=== PATIENT | female | born 1960 | race Caucasian/White ===

== ENCOUNTER 2021-10-04 10:11 | Outpatient (REF) | payer MEDICARE, SELFPAY ==
[2021-10-04 11:02] LABS: MANUAL DIFF FLAG NO
[2021-10-04 11:05] LABS: Basophils Percent Auto 0.4 % (0-2); Eosinophils Absolute Auto 0.3 X10*3/uL (0.0-0.4); Eosinophils Percent Auto 6.3 % (0-4); Hematocrit 39.8 % (37.0-47.0); Imm Gran Abs Auto 0.01 X10*3/uL (0.00-0.03); Imm Gran Pct Auto 0.2 % (0.0-0.4); Lymphocytes Absolute Auto 1.9 X10*3/uL (1.2-4.9); Lymphocytes Percent Auto 40.2 % (20-40); Mean Corpuscular HGB Conc 32.7 g/dl (31.0-35.0); Mean Corpuscular Hemoglobin 28.3 pg (27.0-33.0); Mean Corpuscular Volume 86.7 fL (80.0-98.0); Mean Platelet Volume 11.5 fL (9.4-12.3); Monocytes Absolute Auto 0.4 X10*3/uL (0.1-1.2); Monocytes Percent Auto 8.8 % (2-11); Neutrophils Absolute Auto 2.1 x10*3/uL (2.0-8.3); Neutrophils Percent Auto 44.1 % (45-73); Platelet Count 246 X10*3/uL (160-400); Red Blood Count 4.59 X10*6/uL (4.20-5.50); White Blood Count 4.8 X10*3/uL (4.8-10.8)
[2021-10-04 11:41] LABS: Erythrocyte Sedimentation Rate 17 MM/HR (0-20)
[2021-10-04 11:49] LABS: C Reactive Protein 0.46 mg/dL (< or = 0.50); Estimated Glomerular Filt Rate > 60
== END 2021-10-04 10:12 | disposition home or self-care (01) ==
LOC: HO.10HDL 10:11
PROVIDERS: Visit Provider Internal Medicine Rheumatology
DX: M05.9 Rheumatoid arthritis with rheumatoid factor, unspecified (principal); H60.90 Unspecified otitis externa, unspecified ear; Z79.899 Other long term (current) drug therapy
CPT/HCPCS: 36415; 82565; 85025; 85652; 86140; 99212

== ENCOUNTER → 2022-04-12 10:36 | Outpatient (BNVA) | payer MEDICARE, SELFPAY | PROVIDERS: PCP Internal Medicine; Visit Provider Internal Medicine Rheumatology | DX: M05.9 Rheumatoid arthritis with rheumatoid factor, unspecified (principal); M67.431 Ganglion, right wrist; Z79.899 Other long term (current) drug therapy | CPT/HCPCS: 99212 ==

== ENCOUNTER 2022-04-12 11:45 | Outpatient (REF) | payer MEDICARE, SELFPAY ==
[2022-04-12 14:22] LABS: Basophils Percent Auto 0.3 % (0-2); Eosinophils Absolute Auto 0.5 X10*3/uL (0.0-0.4); Eosinophils Percent Auto 8.1 % (0-4); Hematocrit 40.8 % (37.0-47.0); Hemoglobin 13.1 g/dl (12.0-16.0); Imm Gran Abs Auto 0.01 X10*3/uL (0.00-0.03); Imm Gran Pct Auto 0.2 % (0.0-0.4); Lymphocytes Absolute Auto 2.1 X10*3/uL (1.2-4.9); Lymphocytes Percent Auto 35.7 % (20-40); MANUAL DIFF FLAG NO; Mean Corpuscular HGB Conc 32.1 g/dl (31.0-35.0); Mean Corpuscular Hemoglobin 27.8 pg (27.0-33.0); Mean Corpuscular Volume 86.6 fL (80.0-98.0); Mean Platelet Volume 12.1 fL (9.4-12.3); Monocytes Absolute Auto 0.5 X10*3/uL (0.1-1.2); Monocytes Percent Auto 9.3 % (2-11); Neutrophils Absolute Auto 2.7 x10*3/uL (2.0-8.3); Neutrophils Percent Auto 46.4 % (45-73); Platelet Count 218 X10*3/uL (160-400); Red Blood Count 4.71 X10*6/uL (4.20-5.50); Red Cell Distribution Width 12.6 % (11.0-16.0); White Blood Count 5.8 X10*3/uL (4.8-10.8)
[2022-04-12 14:55] LABS: Erythrocyte Sedimentation Rate 17 MM/HR (0-20)
[2022-04-12 15:30] LABS: C Reactive Protein 0.37 mg/dL (< or = 0.50)
== END 2022-04-12 11:46 | disposition home or self-care (01) ==
LOC: HO.10HDL 11:45
PROVIDERS: Visit Provider Internal Medicine Rheumatology
DX: M05.9 Rheumatoid arthritis with rheumatoid factor, unspecified (principal); M67.431 Ganglion, right wrist; Z79.899 Other long term (current) drug therapy
CPT/HCPCS: 36415; 85025; 85652; 86140

== ENCOUNTER 2022-11-07 12:49 | Outpatient (REF) | payer MEDICARE, SELFPAY ==
--- NOTE | ~2022-11-07 | XR_ITS ---
EXAMINATION: XR WRIST, RIGHT XR HAND, RIGHT CLINICAL INFORMATION: COMPARISON: None available. TECHNIQUE: PA, lateral, and oblique views of the right wrist and PA, lateral, and oblique views of the right hand FINDINGS: RIGHT WRIST: The bones and soft tissues are normal. No fracture. Alignment is anatomic. Joint spaces are maintained. No erosions or soft tissue calcifications. RIGHT HAND: The bones and soft tissues are normal. No fracture. Alignment is anatomic. Joint spaces are maintained. No erosions or soft tissue calcifications. XR/XR hand wrist RT IMPRESSION: Normal right hand and wrist.
== END 2022-11-07 12:50 | disposition home or self-care (01) ==
LOC: HO.XRAY 12:49
PROVIDERS: PCP Internal Medicine; Visit Provider Internal Medicine Rheumatology
DX: M25.531 Pain in right wrist (principal); M19.041 Primary osteoarthritis, right hand; M05.9 Rheumatoid arthritis with rheumatoid factor, unspecified; M19.042 Primary osteoarthritis, left hand; Z79.899 Other long term (current) drug therapy; M76.62 Achilles tendinitis, left leg
CPT/HCPCS: 73110; 73130; 99212

== ENCOUNTER 2022-11-07 12:49 | Outpatient (AMB) | payer MEDICARE, SELFPAY ==
[2022-11-07 12:54] VITALS: BP 120/68; PULSE 85; TEMP 35.9; O2SAT 96; BMI 38.3
--- NOTE | 2022-11-07 12:54 | A.OFFVIS_ITS ---
Intake Vital Signs 11/07/22 12:54 Height 5 ft 4 in Weight 222 lb 14.197 oz BMI 38.3 BP 120/68 Blood Pressure Location Rt brachial Position Sitting Pulse 85 Pulse Source Pulse Oximeter Temp 96.6 F L Temp Source Skin Pulse Oximetry (%) 96 Intake Visit Reasons: ra Intake Note: Pt seen today for RA follow up and test results. 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 She remains on Enbrel 50 mg once a week and meloxicam 15 mg daily. She complains of some right wrist pain, with slight swelling. This is more problematic she thinks on the ulnar aspect of the wrist. There is also been some recurrence of left Achilles pain. She had a cyst over the right wrist at her last visit earlier in the year but that subsided. 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 She also notes that she had surgery on this left Achilles a few years ago. It did fine after that but symptoms have returned she thinks in the last 6 months. There was no recent injury. She was also using some diclofenac gel but ran out of it. [facility] Social History Household Members Other:: lives alone Housing: Apartment Are you a primary career education teacher to a significant other at home: No Do you presently have visiting nurse or other home services: No 75 years or older and lives alone: No Alcohol intake: never Patient Tobacco Use Status: Never used Tobacco e-Cigarette/Vaping Use: Never Used service: No Current occupational status: disabled Review of Systems Const Details: Negative for appetite change, weight change, fever, chills, malaise and fatigue Eyes Details: Negative for vision change, dry eyes,headaches and dizziness ENT Details: Negative for hearing change, tinnitus, oral ulcer, nose bleeds and oral dryness. Card Details: Negative chest pain, edema and syncope Resp Details: Negative for SOB, cough and wheezing GI Details: Negative indigestion/heartburn, nausea, abdominal pain, bowel changes, diarrhea, constipation and bloody stool. Skin/Breast Details: Negative for itching, rash, hives, Raynaud's symptoms, sun sensitivity, and skin cancer Charles/Lymph Details: Negative for excessive bruising or bleeding. Physical Exam Vital Signs: Last Vital Signs Temp 96.6 F L 11/07/22 12:54 Pulse 85 11/07/22 12:54 BP 120/68 11/07/22 12:54 Pulse Ox 96 11/07/22 12:54 BMI result Body Mass Index 38.3 APPEARANCE: Patient in no acute distress EYES no redness, pupils equal and reactive to light, eyelids normal JOINT EXAM: Cervical Spine:.? Full range of motion without pain; no tenderness. Thoracic Spine:.? No scoliosis.? No tenderness on palpation. Lumbar Spine:.? Alignment normal.? Full range of motion without pain, no tenderness. Chest Wall:.? No tenderness, swelling, increased warmth or erythema. Hands: right:? There is mild bony enlargement at the 2nd through 5th DIP joints, the thumb IP and the 2nd 3rd PIP joints..? These are not tender.? No swelling or tenderness in the other joints.? Left: Nontender bony enlargement at the 2nd and 5th PIP joints.? Other joints do not have any swelling or tenderness.. Wrists:.? Right:? Mild pain with flexion extension at 75 degrees.? There is a slight dorsal in a bit more prominent tenderness over the right ulnar region. This is consistent with some ulnar tendinitis. No redness or warmth. Left:? There is 80 degrees of flexion and extension without pain.? No tenderness or swelling. Elbows:. Normal pain-free range of motion without tenderness, swelling, increased warmth or erythema. Shoulders:.?? Full range of motion without pain. No tenderness, weakness, swelling, increased warmth or erythema. Hips:.? Full range of motion without pain. Hip bursa:.? No tenderness. Knees:.?? Normal pain-free range of motion with? Mild patellofemoral crepitus but no effusion, tenderness, soft tissue swelling,, increased warmth or erythema .? ? Feet:.? Normal pain-free range of motion with? Slight 1st MTP bony enlargement without tenderness.? No soft tissue swelling, increased warmth or erythema. ? Ankles:.?? left:? Mild pain with extremes of normal range of motion. There is tenderness along the Achilles where she has old surgical scars that seem well healed. No significant swelling or redness.? Right:Normal pain-free range of motion without tenderness, swelling, increased warmth or erythema. Tender points:?? slight tenderness to digital palpation at the trapezius,lateral epicondyle, greater trochanter area bilaterally. Results Reviewed Results Reviewed: Laboratory Tests 04/12/22 04/12/22 10:35 Unknown ESR 17 C-Reactive Protein 0.37 Assessment & Plan Assessment & Plan (1) Long-term use of immunosuppressant medication: Code(s): Z79.899 - Other long term acute care registered nurse (current) drug therapy (2) Achilles tendinitis of left lower extremity: Code(s): M76.62 - Achilles tendinitis, left leg (3) Osteoarthritis of hands, bilateral: Code(s): M19.041 - Primary osteoarthritis, right hand; M19.042 - Primary osteoarthritis, left hand (4) Wrist pain, right: Code(s): M25.531 - Pain in right wrist (5) Seropositive rheumatoid arthritis: Comment: Given penicillin prophylaxis for acute rheumatic fever until age 12(in [place]) Onset RA 2001. RF positive; CCP > 250 On Enbrel since 2003 Code(s): M05.9 - Rheumatoid arthritis with rheumatoid factor, unspecified Plan Rheumatoid arthritis with some tenderness in the right wrist and left Achilles. Both of these look like tendon structures. The right wrist has some element of flexor carpi ulnaris tenosynovitis. The Achilles tendon is tender as well. We will get x-rays of that ankle and ask her to be re-evaluated at [facility] where she had her Achilles surgery done a few years ago. I offered a corticosteroid injection for the right wrist but she was not interested for now. We will get an x-ray of the wrist. She will continue with current medications and I added back her diclofenac gel to use topically particularly for these areas of tendinitis. Follow-up in 4 months. Orders: Orders XR hand wrist RT Today M25.531 - Pain in right wrist Referrals Orthopedics Referral M76.62 - Achilles tendinitis, left leg Medications: New diclofenac sodium 1% to affected areas 1 - 2 grams topical QID 100 grams 3RF M76.62 - Achilles tendinitis, left leg Refilled etanercept (Enbrel SureClick) 50 mg subcut QWEEK 4 mL 6RF M05.9 - Rheumatoid arthritis with rheumatoid factor, unspecified Coding Level of Care Code Est Pt Level 3 (45928) Diagnoses Long-term use of immunosuppressant medication Z79.899 Achilles tendinitis of left lower extremity M76.62 Osteoarthritis of hands, bilateral M19.041; M19.042 Wrist pain, right M25.531 Seropositive rheumatoid arthritis M05.9
== END 2022-11-07 13:33 | disposition home or self-care (01) ==
PROVIDERS: PCP Internal Medicine; Visit Provider Internal Medicine Rheumatology
DX: M05.79 Rheumatoid arthritis with rheumatoid factor of multiple sites without organ or systems involvement (principal); Z79.899 Other long term (current) drug therapy; M76.62 Achilles tendinitis, left leg; M19.041 Primary osteoarthritis, right hand; M19.042 Primary osteoarthritis, left hand; M25.531 Pain in right wrist
CPT/HCPCS: 99213

== ENCOUNTER 2023-02-20 13:26 | Outpatient (AMB) | payer MEDICARE, SELFPAY ==
--- NOTE | 2023-02-20 13:34 | A.OFFVIS_ITS ---
Intake Vital Signs 02/20/23 13:35 Height 5 ft 4 in Weight 223 lb 15.834 oz BMI 38.4 BP 118/80 Blood Pressure Location Rt brachial Position Sitting Pulse 90 Pulse Source Pulse Oximeter Temp 97 F Temp Source Skin Pulse Oximetry (%) 95 Oxygen Delivery Method Room Air Intake Visit Reasons: ra Intake Note: Patient presents today to follow up on RA. Reports seen [facility] but does not wish to reschedule missed follow up appt. Does not want to do PT as they suggested. c/o left knee pain since Thanksgiving. 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 Accompanied by: Self / Same As Patient Allergies lisinopril Allergy (Unknown, Verified 02/20/23 13:37) cough morphine Allergy (Unknown, Verified 02/20/23 13:37) palpitations Medication List - Last Reconciled 02/20/23 by Carlos Chew MD cholecalciferol (vitamin D3) 25 mcg PO DAILY cyanocobalamin (vitamin B-12) 1,000 mcg PO DAILY cyclosporine 0.05% (Restasis MultiDose) drps ophthalmic (eye) diclofenac sodium 1% 1 - 2 grams topical QID duloxetine 60 mg PO DAILY etanercept (Enbrel SureClick) 50 mg subcut QWEEK lorazepam 0.5 mg PO DAILY PRN losartan 12.5 mg PO DAILY meloxicam 15 mg PO DAILY PRN metformin 500 mg PO QAM mirabegron ER (Myrbetriq) 25 mg PO DAILY jvrvchsq-toruce-XK-thonzonium 3.3-3-10-0.5 mg/mL (Cortisporin-TC) 4 drps otic (ear) left TID oxybutynin chloride ER 15 mg PO DAILY zolpidem 5 mg PO BEDTIME HPI HPI Comments History of Present Illness Details The patient returns today for evaluation of her rheumatoid arthritis. She remains on meloxicam 15 mg once daily and Enbrel 50 mg once a week. At her last visit she was having some Achilles tendinitis. She did go to Orthopedics and they recommended some exercises which she has been doing. She also has been putting on some to diclofenac gel on the area. These measures seem to have helped her. However she is getting rare episode of pain in the right lateral wrist. She has had more significant pains in the left knee for about 2 weeks now. There was no injury involved. She relates that it is over the anterior and medial aspect of the knee. She thinks there is occasional swelling. In the past she had arthroscopy on her knee but she does not really know which one. Radiographs and MRI from [place] showed the right knee had some degenerative changes on the MRI but not much seen on previous knee films. I do not find any x-rays of the left knee. [facility] Social History Household Members Other:: lives alone Housing: Apartment Are you a primary child daycare worker to a significant other at home: No Do you presently have visiting nurse or other home services: No 75 years or older and lives alone: No Alcohol intake: never Patient Tobacco Use Status: Never used Tobacco e-Cigarette/Vaping Use: Never Used service: No Current occupational status: disabled Review of Systems Const Details: Negative for appetite change, weight change, fever, chills, malaise and fatigue Eyes Details: Negative for vision change, dry eyes,headaches and dizziness ENT Details: Negative for hearing change, tinnitus, oral ulcer, nose bleeds and oral dryness. Card Details: Negative chest pain, edema and syncope Resp Details: Negative for SOB, cough and wheezing GI Details: Negative indigestion/heartburn, nausea, abdominal pain, bowel changes, diarrhea, constipation and bloody stool. Skin/Breast Details: Negative for itching, rash, hives, Raynaud's symptoms, sun sensitivity, and skin cancer Endo Details: Negative for polyuria and polydypsia Charles/Lymph Details: Negative for excessive bruising or bleeding. Physical Exam Vital Signs: Last Vital Signs Temp 97 F 02/20/23 13:35 Pulse 90 02/20/23 13:35 BP 118/80 02/20/23 13:35 Pulse Ox 95 02/20/23 13:35 Oxygen Delivery Method Room Air 02/20/23 13:35 BMI result Body Mass Index 38.4 APPEARANCE: Patient in no acute distress EYES no redness, pupils equal and reactive to light, eyelids normal EXTREMITIES: No edema, no calf tenderness, normal peripheral pulses. SKIN: No inflammatory or neoplastic lesions. Normal color and turgor JOINT EXAM: Cervical Spine:.? Full range of motion without pain; no tenderness. Thoracic Spine:.? No scoliosis.? No tenderness on palpation. Lumbar Spine:.? Alignment normal.? Full range of motion without pain, no tenderness. Chest Wall:.? No tenderness, swelling, increased warmth or erythema. Hands: right:? There is mild bony enlargement at the 2nd through 5th DIP joints, the thumb IP and the 2nd 3rd PIP joints.? These are not tender.? No swelling or tenderness in the other joints.? Left: Nontender bony enlargement at the thumb IP, 2nd PIP, and 5th PIP joints.? There is slight nontender bony enlargement at the 2nd, 3rd and 5th D IP joints. All Wrists:.? Right:? Slight discomfort with flexion or extension at 75 degrees.? There is a slight dorsal in a bit more prominent tenderness over the right ulnar region. This is consistent with some ulnar tendinitis. No redness or warmth. Left:? There is 80 degrees of flexion and extension without pain.? No tenderness or swelling. Elbows:. Normal pain-free range of motion without tenderness, swelling, increased warmth or erythema. Shoulders:.?? Full range of motion without pain. No tenderness, weakness, swelling, increased warmth or erythema. Hips:.? Full range of motion without pain. Hip bursa:.? No tenderness. Knees:.? Right:? Normal pain-free range of motion with? Mild patellofemoral crepitus but no effusion, tissue swelling,, increased warmth or erythema.? There is some slight medial compartment tenderness. Left: Mild pain at the extremes of normal flexion or extension. Most of the pain is felt in the anterior medial aspect of the knee. There is [id number] medial compartment tenderness without redness or effusion. There is slight tenderness in the popliteal region without swelling. ? Feet:.? Normal pain-free range of motion with? Slight 1st MTP bony enlargement without tenderness.? No soft tissue swelling, increased warmth or erythema. ? Ankles:.?? left:? Normal pain-free range of motion. There is no tenderness at the Achilles where she has old surgical scars that seem well healed. No significant swelling or redness.? Right:Normal pain-free range of motion without tenderness, swelling, increased warmth or erythema. Tender points:??slight tenderness to digital palpation at the trapezius,lateral epicondyle, greater trochanter area bilaterally. ?? Office Procedures Joint Injection/Drain Joint Injection/Drain Primary Site: left knee Injected: 40 mg of, Kenalog, with 1 mL of and 1% plain lidocaine Coding Details: With the patient's consent the left knee was prepped with ChloraPrep and alcohol. The skin was anesthetized with 2 cc of 1% lidocaine. The knee was then injected with 40 mg of triamcinolone and 1 cc of I % lidocaine. The patient tolerated the procedure with no immediate adverse effects. 74114 - Large joint Procedure code (CPT) selection complete Results Reviewed Results Reviewed: Laboratory Tests 10/04/21 04/12/22 04/12/22 10:15 10:35 11:46 WBC 5.8 Hgb 13.1 ESR Creatinine 0.82 C-Reactive Protein 0.37 04/12/22 Unknown WBC Hgb ESR 17 Creatinine C-Reactive Protein Assessment & Plan Assessment & Plan (1) Osteoarthritis of hands, bilateral: Code(s): M19.041 - Primary osteoarthritis, right hand; M19.042 - Primary osteoarthritis, left hand (2) Long-term use of immunosuppressant medication: Code(s): Z79.899 - Other remote computer terminal operator (current) drug therapy (3) Seropositive rheumatoid arthritis: Comment: Given penicillin prophylaxis for acute rheumatic fever until age 12(in [place]) Onset RA 2001. RF positive; CCP > 250 On Enbrel since 2003 Code(s): M05.9 - Rheumatoid arthritis with rheumatoid factor, unspecified Plan She is having some left knee pain and tenderness but it does not look swollen. She has some changes in the hands consistent with some underlying osteoarthritis but that is not really symptomatic currently. The knee pain could be some very low-grade RA but it is more likely some degenerative process due to osteoarthritis. I think the RA otherwise is well controlled. She is already taking full doses of the meloxicam. She wants to try a corticosteroid injection for the knee pain. She has had such injections without problems before in the shoulders. We reviewed potential side effects. With the patient's consent the left knee was prepped with ChloraPrep and alcohol. The skin was anesthetized with 2 cc of 1% lidocaine. The knee was then injected with 40 mg of triamcinolone and 1 cc of I % lidocaine. The patient tolerated the procedure with no immediate adverse effects. An x-ray of the knee is ordered. She should do this next week and LEs the knee is perfectly fine. We would also recheck inflammatory markers CBC and creatinine given her regular use of meloxicam. She will stay with the Enbrel as she seems to be controlling most of her symptoms. A follow-up in 5 months to 6 months is recommended. Orders: Orders XR knee LT 3V Today M05.9 - Rheumatoid arthritis with rheumatoid factor, unspecified Erythrocyte Sedimentation Rate Today M05.9 - Rheumatoid arthritis with rheumatoid factor, unspecified Creatinine Today M05.9 - Rheumatoid arthritis with rheumatoid factor, unspecified, Z79.899 - Other remote computer terminal operator (current) drug therapy Complete Blood Count Auto Diff Today Z79.899 - Other remote computer terminal operator (current) drug therapy C Reactive Protein Today M05.9 - Rheumatoid arthritis with rheumatoid factor, unspecified Alanine Aminotransferase Today M05.9 - Rheumatoid arthritis with rheumatoid factor, unspecified, Z79.899 - Other remote computer terminal operator (current) drug therapy AMB Joint Injection/Aspiration Today M05.9 - Rheumatoid arthritis with rheumatoid factor, unspecified Coding Level of Care Code Est Pt Level 3 (38236) Diagnoses Osteoarthritis of hands, bilateral M19.041; M19.042 Long-term use of immunosuppressant medication Z79.899 Seropositive rheumatoid arthritis M05.9 CPT Codes Coding - 80425 Large joint: 58107 - Large joint ([id number])
[2023-02-20 13:35] VITALS: BP 118/80; PULSE 90; TEMP 36.1; O2SAT 95; BMI 38.4
== END 2023-02-20 14:44 | disposition home or self-care (01) ==
PROVIDERS: PCP Internal Medicine; Visit Provider Internal Medicine Rheumatology
DX: M05.79 Rheumatoid arthritis with rheumatoid factor of multiple sites without organ or systems involvement (principal); M19.041 Primary osteoarthritis, right hand; M19.042 Primary osteoarthritis, left hand; Z79.899 Other long term (current) drug therapy
CPT/HCPCS: 20610; 99213

== ENCOUNTER → 2023-02-20 13:26 | Outpatient (BNVA) | payer MEDICARE, SELFPAY | PROVIDERS: PCP Internal Medicine; Visit Provider Internal Medicine Rheumatology | DX: M19.041 Primary osteoarthritis, right hand (principal); M19.042 Primary osteoarthritis, left hand; M05.9 Rheumatoid arthritis with rheumatoid factor, unspecified; Z79.899 Other long term (current) drug therapy | CPT/HCPCS: 20610; 99212 ==

== ENCOUNTER 2023-08-22 13:33 | Outpatient (AMB) | payer MEDICARE, SELFPAY ==
--- NOTE | 2023-08-22 13:38 | MHC.OFFVIS ---
Vital Signs 08/22/23 13:39 Height 5 ft 4 in Weight 228 lb 6.382 oz BMI 39.2 BP 122/60 Blood Pressure Location Rt brachial Position Sitting Pulse 83 Pulse Source Pulse Oximeter Pulse Oximetry (%) 97 Oxygen Delivery Method Room Air Intake Visit Reasons: ra with dr rehman Visual Lead Required: No Accompanied by: Self / Same As Patient Allergies lisinopril Allergy (Unknown, Verified 08/22/23 13:46) cough morphine Allergy (Unknown, Verified 08/22/23 13:46) palpitations Medication List - Last Reconciled 08/22/23 by Gabriela Ribera MD cetirizine 10 mg PO DAILY cholecalciferol (vitamin D3) 25 mcg PO DAILY cyanocobalamin (vitamin B-12) 1,000 mcg PO DAILY cyclosporine 0.05% (Restasis MultiDose) drps ophthalmic (eye) diclofenac sodium 1% 1 - 2 grams topical QID duloxetine 20 mg PO BID etanercept (Enbrel SureClick) 50 mg subcut QWEEK lorazepam 0.5 mg PO DAILY PRN losartan 12.5 mg PO DAILY meloxicam 15 mg PO DAILY PRN metformin 500 mg PO QAM mirabegron ER (Myrbetriq) 25 mg PO DAILY wsbpytgj-hwnifd-UN-thonzonium 3.3-3-10-0.5 mg/mL (Cortisporin-TC) 4 drps otic (ear) left TID oxybutynin chloride ER 15 mg PO DAILY zolpidem 5 mg PO BEDTIME HPI Comments Details: This is a 63-year-old female with seropositive RA who presents for follow-up. On Enbrel regularly. She states that she feels about the same overall. She continues to have intermittent flare-ups. Sometimes Enbrel does not last her the whole week. Takes Tylenol Arthritis as needed for her flare-ups. She states that last 2 days she has felt pain in her right side of her neck below her jaw she feels she has a swollen lymph node. She has not had a fever. She has been feeling relatively well otherwise. No major complaints Most recent history by Dr. Chew 02/2023: The patient returns today for evaluation of her rheumatoid arthritis. She remains on meloxicam 15 mg once daily and Enbrel 50 mg once a week. At her last visit she was having some Achilles tendinitis. She did go to Orthopedics and they recommended some exercises which she has been doing. She also has been putting on some to diclofenac gel on the area. These measures seem to have helped her. However she is getting rare episode of pain in the right lateral wrist. She has had more significant pains in the left knee for about 2 weeks now. There was no injury involved. She relates that it is over the anterior and medial aspect of the knee. She thinks there is occasional swelling. In the past she had arthroscopy on her knee but she does not really know which one. Radiographs and MRI from [place] showed the right knee had some degenerative changes on the MRI but not much seen on previous knee films. I do not find any x-rays of the left knee. [facility] Social History Household Members Other:: lives alone Housing: Apartment Are you a primary health care specialist to a significant other at home: No Do you presently have visiting nurse or other home services: No 75 years or older and lives alone: No Alcohol intake: never Patient Tobacco Use Status: Never used Tobacco e-Cigarette/Vaping Use: Never Used service: No Current occupational status: disabled Review of Systems ENT Details: Painful lymph node Musc Reports back pain, Reports arthralgias and Reports stiffness Physical Exam Vital Signs: Last Vital Signs Pulse 83 08/22/23 13:39 BP 122/60 08/22/23 13:39 Pulse Ox 97 08/22/23 13:39 Oxygen Delivery Method Room Air 08/22/23 13:39 BMI result Body Mass Index 39.2 Const General: cooperative, healthy appearing and comfortable Nutritional Appearance: obese morbidly obese Orientation/consciousness: patient oriented x3 Limitations: no limitations HEENT Head: Yes normocephalic and Yes atraumatic Mouth: moist mucous membranes Resp Effort & Inspection: normal respiratory effort and able to speak in complete sentences Auscultation: clear to auscultation bilaterally Cardio Rate: regular rate Rhythm: regular rhythm Neuro General: patient oriented x3 Extrem Other: Right wrist tenderness on the ulnar aspect Right 3rd and 4th PIP tenderness without swelling Osteoarthritic changes of both hands with prominent Heberden's nodes Assessment & Plan Assessment & Plan (1) Seropositive rheumatoid arthritis: Comment: Given penicillin prophylaxis for acute rheumatic fever until age 12(in [place]) Onset RA 2001. ++RF+++CCP On Enbrel since 2003 Code(s): M05.9 - Rheumatoid arthritis with rheumatoid factor, unspecified Category: Medical Plan: This is a 63-year-old female with seropositive RA who presents as a new patient for me. She used to follow-up with Dr. Chew. Patient is doing quite well on Enbrel weekly. Continue Enbrel 50 mg subcutaneously weekly. Patient takes Tylenol Arthritis as needed. Labs before next visit in 6 months (2) Long-term use of immunosuppressant medication: Code(s): Z79.899 - Other bacteriologist food (current) drug therapy Category: Medical Plan: Patient has been on Enbrel regularly for approximately 20 years without any major side effects. Patient to hold Enbrel for any serious infection, fever above 102. Infection that requires hospital admission Plan I spent 30 minutes reviewing patient's chart, evaluating patient, ordering diagnostic workup, counseling patient and documenting in the chart Orders: Orders Comprehensive Met. Panel 6 Months M05.9 - Rheumatoid arthritis with rheumatoid factor, unspecified C Reactive Protein 6 Months M05.9 - Rheumatoid arthritis with rheumatoid factor, unspecified Erythrocyte Sedimentation Rate 6 Months M05.9 - Rheumatoid arthritis with rheumatoid factor, unspecified T Spot TB 6 Months Z11.7 - Encounter for testing for latent tuberculosis infection Complete Blood Count Auto Diff 6 Months M05.9 - Rheumatoid arthritis with rheumatoid factor, unspecified Hepatitis A,B,C Profile 6 Months Z11.59 - Encounter for screening for other viral diseases Medications: Changed From etanercept (Enbrel SureClick) 50 mg subcut QWEEK 4 mL 6RF M05.9 - Rheumatoid arthritis with rheumatoid factor, unspecified To Enbrel SureClick (etanercept) 50 mg subcut QWEEK 4 mL 5RF NS M05.9 - Rheumatoid arthritis with rheumatoid factor, unspecified Coding Level of Care Code Est Pt Level 4 (67092) Diagnoses Seropositive rheumatoid arthritis M05.9 Long-term use of immunosuppressant medication Z79.899
[2023-08-22 13:39] VITALS: BP 122/60; PULSE 83; O2SAT 97; BMI 39.2
== END 2023-08-22 14:08 | disposition home or self-care (01) ==
PROVIDERS: PCP Internal Medicine; Visit Provider Student in an Organized Health Care Education/Training Program
DX: M05.79 Rheumatoid arthritis with rheumatoid factor of multiple sites without organ or systems involvement (principal); Z79.899 Other long term (current) drug therapy
CPT/HCPCS: 99214

== ENCOUNTER → 2023-08-22 13:33 | Outpatient (BNVA) | payer MEDICARE, SELFPAY | PROVIDERS: PCP Internal Medicine; Visit Provider Student in an Organized Health Care Education/Training Program | DX: M05.9 Rheumatoid arthritis with rheumatoid factor, unspecified (principal); Z79.620 Long term (current) use of immunosuppressive biologic | CPT/HCPCS: 99212 ==

== ENCOUNTER 2024-01-03 08:23 | Outpatient (AMB) | payer MEDICARE, SELFPAY ==
--- NOTE | 2024-01-03 08:37 | A.OFFVIS_ITS ---
Vital Signs 01/03/24 08:39 Height 5 ft 4 in Weight 230 lb 2.601 oz BMI 39.5 BP 120/60 Blood Pressure Location Rt brachial Position Sitting Pulse 76 Pulse Source Pulse Oximeter Pulse Oximetry (%) 97 Oxygen Delivery Method Room Air Intake Visit Reasons: RA Intake Note: Patient presents for RA. Allergies lisinopril Allergy (Unknown, Verified 01/03/24 08:39) cough morphine Allergy (Unknown, Verified 01/03/24 08:39) palpitations Medication List - Last Reconciled 01/03/24 by Gabriela Ribera MD cetirizine 10 mg PO DAILY cholecalciferol (vitamin D3) 25 mcg PO DAILY cyanocobalamin (vitamin B-12) 1,000 mcg PO DAILY cyclosporine 0.05% (Restasis MultiDose) drps ophthalmic (eye) diclofenac sodium 1% 1 - 2 grams topical QID duloxetine 20 mg PO BID Enbrel SureClick (etanercept) 50 mg subcut QWEEK NS lorazepam 0.5 mg PO DAILY PRN losartan 12.5 mg PO DAILY meloxicam 15 mg PO DAILY PRN metformin 500 mg PO QAM mirabegron ER (Myrbetriq) 25 mg PO DAILY dgwglzmw-tauhin-EE-thonzonium 3.3-3-10-0.5 mg/mL (Cortisporin-TC) 4 drps otic (ear) left TID oxybutynin chloride ER 15 mg PO DAILY prednisone Take 4 tabs daily for 1 week then 3 tabs daily for 1 week then 2 tabs daily for 1 week then 1 tab daily for 1 week then stop zolpidem 5 mg PO BEDTIME HPI Comments Details: This is a 63-year-old female with seropositive RA who presents for an urgent visit. About a month ago she had COVID infection, she had no fever but she had chills. Since then she has been having diffuse body aches as well as joint pain. Especially both her wrists, the left wrist is worse, left shoulder pain. She has been taking Tylenol without much relief. She continues to do the Enbrel injection regularly Most recent history by Dr. Chew 02/2023: The patient returns today for evaluation of her rheumatoid arthritis. She remains on meloxicam 15 mg once daily and Enbrel 50 mg once a week. At her last visit she was having some Achilles tendinitis. She did go to Orthopedics and they recommended some exercises which she has been doing. She also has been putting on some to diclofenac gel on the area. These measures seem to have helped her. However she is getting rare episode of pain in the right lateral wrist. She has had more significant pains in the left knee for about 2 weeks now. There was no injury involved. She relates that it is over the anterior and medial aspect of the knee. She thinks there is occasional swelling. In the past she had arthroscopy on her knee but she does not really know which one. Radiographs and MRI from [place] showed the right knee had some degenerative changes on the MRI but not much seen on previous knee films. I do not find any x-rays of the left knee. [facility] Social History Household Members Other:: lives alone Housing: Apartment Are you a primary career development engineer to a significant other at home: No Do you presently have visiting nurse or other home services: No Alcohol intake: never Patient Tobacco Use Status: Never used Tobacco e-Cigarette/Vaping Use: Never Used service: No Current occupational status: disabled Review of Systems [employer] Reports arthralgias and Reports stiffness Physical Exam Vital Signs: Last Vital Signs Pulse 76 01/03/24 08:39 BP 120/60 01/03/24 08:39 Pulse Ox 97 01/03/24 08:39 Oxygen Delivery Method Room Air 01/03/24 08:39 BMI result Body Mass Index 39.5 Const General: cooperative, healthy appearing and comfortable Nutritional Appearance: obese morbidly obese Orientation/consciousness: patient oriented x3 Limitations: no limitations HEENT Head: Yes normocephalic and Yes atraumatic Mouth: moist mucous membranes Resp Effort & Inspection: normal respiratory effort and able to speak in complete sentences Auscultation: clear to auscultation bilaterally Cardio Rate: regular rate Rhythm: regular rhythm Neuro General: patient oriented x3 Extrem Other: Bilateral wrist tenderness, slight puffiness and pain with any range of motion Significantly limited left shoulder abduction Left knee pain with flexion-extension Osteoarthritic changes of both hands with prominent Heberden's nodes Assessment & Plan Assessment & Plan (1) Seropositive rheumatoid arthritis: Comment: Given penicillin prophylaxis for acute rheumatic fever until age 12(in [place]) Onset RA 2001. ++RF+++CCP On Enbrel since 2003 Code(s): M05.9 - Rheumatoid arthritis with rheumatoid factor, unspecified Category: Medical Plan: This is a 63-year-old female with seropositive RA who presents for an urgent visit. Patient is having an RA flare likely triggered by COVID infection. Start prednisone taper for relief Check labs today Follow-up in 3 months. If patient continues to have active synovitis then she may have developed secondary nonresponse to Enbrel and we may have to change it Continue Enbrel 50 mg subcutaneously weekly. Labs before next visit in 3 months (2) Long-term use of immunosuppressant medication: Code(s): Z79.899 - Other termite technician (current) drug therapy Category: Medical Plan: Patient has been on Enbrel regularly for approximately 20 years without any major side effects. Patient to hold Enbrel for any serious infection, fever above 102. Infection that requires hospital admission Plan I spent 30 minutes reviewing patient's chart, evaluating patient, ordering diagnostic workup, counseling patient and documenting in the chart Orders: Orders Complete Blood Count Auto Diff 3 Months M05.9 - Rheumatoid arthritis with rheumatoid factor, unspecified Comprehensive Met. Panel 3 Months M05.9 - Rheumatoid arthritis with rheumatoid factor, unspecified C Reactive Protein 3 Months M05.9 - Rheumatoid arthritis with rheumatoid factor, unspecified Erythrocyte Sedimentation Rate 3 Months M05.9 - Rheumatoid arthritis with rheumatoid factor, unspecified Medications: New prednisone Take 4 tabs daily for 1 week then 3 tabs daily for 1 week then 2 tabs daily for 1 week then 1 tab daily for 1 week then stop 70 tabs 0RF Coding Level of Care Code Est Pt Level 4 (10587) Complex EM visit Add On G2211 Diagnoses Seropositive rheumatoid arthritis M05.9 Long-term use of immunosuppressant medication Z79.899
[2024-01-03 08:39] VITALS: BP 120/60; PULSE 76; O2SAT 97; BMI 39.5
== END 2024-01-03 09:31 | disposition home or self-care (01) ==
PROVIDERS: PCP Internal Medicine; Visit Provider Student in an Organized Health Care Education/Training Program
DX: M05.79 Rheumatoid arthritis with rheumatoid factor of multiple sites without organ or systems involvement (principal); Z79.899 Other long term (current) drug therapy
CPT/HCPCS: 99214; G2211

== ENCOUNTER → 2024-01-03 08:23 | Outpatient (BNVA) | payer MEDICARE, SELFPAY | PROVIDERS: PCP Internal Medicine; Visit Provider Student in an Organized Health Care Education/Training Program | DX: M05.9 Rheumatoid arthritis with rheumatoid factor, unspecified (principal); Z79.899 Other long term (current) drug therapy | CPT/HCPCS: 99212 ==

== ENCOUNTER 2024-01-03 09:36 | Outpatient (REF) | payer MEDICARE, SELFPAY ==
[2024-01-03 10:42] LABS: MANUAL DIFF FLAG NO
[2024-01-03 10:45] LABS: Basophils Percent Auto 0.2 % (0-2); Eosinophils Absolute Auto 0.5 X10*3/uL (0.0-0.4); Eosinophils Percent Auto 11.1 % (0-4); Hematocrit 40.9 % (37.0-47.0); Hemoglobin 13.6 g/dl (12.0-16.0); Imm Gran Abs Auto 0.01 X10*3/uL (0.00-0.03); Imm Gran Pct Auto 0.2 % (0.0-0.4); Lymphocytes Absolute Auto 1.8 X10*3/uL (1.2-4.9); Lymphocytes Percent Auto 41.5 % (20-40); Mean Corpuscular HGB Conc 33.3 g/dl (31.0-35.0); Mean Corpuscular Hemoglobin 28.1 pg (27.0-33.0); Mean Corpuscular Volume 84.5 fL (80.0-98.0); Mean Platelet Volume 11.2 fL (9.4-12.3); Monocytes Absolute Auto 0.3 X10*3/uL (0.1-1.2); Monocytes Percent Auto 5.9 % (2-11); Neutrophils Absolute Auto 1.7 x10*3/uL (2.0-8.3); Neutrophils Percent Auto 41.1 % (45-73); Platelet Count 211 X10*3/uL (160-400); Red Blood Count 4.84 X10*6/uL (4.20-5.50); White Blood Count 4.2 X10*3/uL (4.8-10.8)
[2024-01-03 11:08] LABS: Alanine Aminotransferase 28 U/L (0-31); Albumin Level 3.6 g/dL (3.5-5.0); Alkaline Phosphatase 82 U/L (39-117); Anion Gap 10 (12-20); Aspartate Amino Transferase 24 U/L (5-31); Bilirubin Total 0.4 mg/dL (0.0-1.0); Blood Urea Nitrogen 16 mg/dL (9-16); C Reactive Protein 0.57 mg/dL (< or = 0.50); Calcium 9.3 mg/dL (8.4-10.2); Carbon Dioxide 29 mmol/L (22-29); Chloride 107 mmol/L (96-108); Estimated Glomerular Filt Rate > 60; Glucose Random 117 mg/dL (60-115); Potassium 3.9 mmol/L (3.3-5.1); Sodium 142 mmol/L (135-145); Total Protein 7.1 g/dL (6.5-8.0)
[2024-01-03 11:23] LABS: Erythrocyte Sedimentation Rate 17 MM/HR (0-20)
[2024-01-03 11:29] LABS: HBS Num1 8.06 mIU/mL (0-7.99); HBc Num1 0.13 S/CO (0.00-0.79); HBsAGNum1 0.37 S/CO (0.00-0.99); Hepatitis A Antibody IgM 0.39 Index (0-0.79); Hepatitis B Core Antibody Nonreactive (Nonreactive); Hepatitis B Surface Antigen Negative (Negative); ~HepC Num1 0.14 S/CO (0.00-0.79); ~Hepatitis A Antibody IgM Nonreactive (Nonreactive); ~Hepatitis C Antibody Nonreactive (Nonreactive)
[2024-01-04 08:57] LABS: HBS Num2 7.58 mIU/mL (0-7.99); HBS Num3 7.34 mIU/mL (0-7.99); ~Hepatitis B Surface Antibody NONREACTIVE (Nonreactive)
[2024-01-06 15:12] LABS: TS Negative Control Passed; TS Panel A 1; TS Panel B 0; TS Positive Control Passed; TSpotTB Negative (Negative)
== END 2024-01-03 09:37 | disposition home or self-care (01) ==
LOC: HO.10HDL 09:36
PROVIDERS: Visit Provider Student in an Organized Health Care Education/Training Program
DX: M05.9 Rheumatoid arthritis with rheumatoid factor, unspecified (principal); Z11.7 Encounter for testing for latent tuberculosis infection; Z11.59 Encounter for screening for other viral diseases
CPT/HCPCS: 36415; 80053; 85025; 85652; 86140; 86481; 86704; 86706; 86709; 86803; 87340

== ENCOUNTER 2024-03-04 11:25 | Outpatient (AMB) | payer MEDICARE, SELFPAY ==
--- NOTE | 2024-03-04 11:31 | A.OFFVIS_ITS ---
Vital Signs 03/04/24 11:36 Height 5 ft 4 in Weight 236 lb 12.423 oz BMI 40.6 BP 122/70 Blood Pressure Location Rt brachial Position Sitting Pulse 74 Pulse Source Pulse Oximeter Pulse Oximetry (%) 98 Oxygen Delivery Method Room Air Intake Visit Reasons: RA Intake Note: Patient presents for RA. Allergies lisinopril Allergy (Unknown, Verified 03/04/24 11:35) cough morphine Allergy (Unknown, Verified 03/04/24 11:35) palpitations Medication List - Last Reconciled 03/04/24 by Gabriela Ribera MD amoxicillin 2,000 mg (4 x 500 mg) PO ONCE cetirizine 10 mg PO DAILY cholecalciferol (vitamin D3) 25 mcg PO DAILY cyanocobalamin (vitamin B-12) 1,000 mcg PO DAILY cyclosporine 0.05% (Restasis MultiDose) drps ophthalmic (eye) diclofenac sodium 1% 1 - 2 grams topical QID duloxetine 20 mg PO BID Enbrel SureClick (etanercept) 50 mg subcut QWEEK NS ibuprofen 600 mg PO TID lorazepam 0.5 mg PO DAILY PRN losartan 12.5 mg PO DAILY meloxicam 15 mg PO DAILY PRN metformin 500 mg PO QAM mirabegron ER (Myrbetriq) 25 mg PO DAILY jsgkbpkn-zhtxkf-RD-thonzonium 3.3-3-10-0.5 mg/mL (Cortisporin-TC) 4 drps otic (ear) left TID oxybutynin chloride ER 15 mg PO DAILY prednisone Take 4 tabs daily for 1 week then 3 tabs daily for 1 week then 2 tabs daily for 1 week then 1 tab daily for 1 week then stop zolpidem 5 mg PO BEDTIME HPI Comments Details: This is a 63-year-old female with seropositive RA who presents for follow-up. She remains on Enbrel 50 mg weekly. After last visit, she took the prednisone taper with relief, a few days later she started having flare-ups affecting different joints including her wrists, hands and knees. She went to [place]. She had an x-ray and started on ibuprofen 600 mg. She took it regularly for some time then has been taking it as needed. States that she has not been doing well. Enbrel does not last as long as it used to, currently it lasts 3-4 days. She has pain, swelling and stiffness of her hands, wrists, knees. Most recent history by Dr. Chew 02/2023: The patient returns today for evaluation of her rheumatoid arthritis. She remains on meloxicam 15 mg once daily and Enbrel 50 mg once a week. At her last visit she was having some Achi lles tendinitis. She did go to Orthopedics and they recommended some exercises which she has been doing. She also has been putting on some to diclofenac gel on the area. These measures seem to have helped her. However she is getting rare episode of pain in the right lateral wrist. She has had more significant pains in the left knee for about 2 weeks now. There was no injury involved. She relates that it is over the anterior and medial aspect of the knee. She thinks there is occasional swelling. In the past she had arthroscopy on her knee but she does not really know which one. Radiographs and MRI from [place] showed the right knee had some degenerative changes on the MRI but not much seen on previous knee films. I do not find any x-rays of the left knee. [facility] Social History Household Members Other:: lives alone Housing: Apartment Are you a primary healthcare corporate account director to a significant other at home: No Do you presently have visiting nurse or other home services: No 75 years or older and lives alone: No Alcohol intake: never Patient Tobacco Use Status: Never used Tobacco e-Cigarette/Vaping Use: Never Used service: No Current occupational status: disabled Review of Systems [facility] Reports arthralgias and Reports stiffness Physical Exam Vital Signs: Last Vital Signs Pulse 74 03/04/24 11:36 BP 122/70 03/04/24 11:36 Pulse Ox 98 03/04/24 11:36 Oxygen Delivery Method Room Air 03/04/24 11:36 BMI result Body Mass Index 40.6 Const General: cooperative, healthy appearing and comfortable Nutritional Appearance: obese morbidly obese Orientation/consciousness: patient oriented x3 Limitations: no limitations HEENT Head: Yes normocephalic and Yes atraumatic Resp Effort & Inspection: normal respiratory effort and able to speak in complete sentences Cardio Rate: regular rate Rhythm: regular rhythm Neuro General: patient oriented x3 Extrem Other: Right wrist swelling, tenderness and pain with range of motion Right 2nd 3rd and 4th MCP tenderness without swelling Right 2nd through 5th PIP tenderness Left wrist without swelling or tenderness. But there is pain with full extension Osteoarthritic changes of both hands with prominent Heberden's nodes Assessment & Plan Assessment & Plan (1) Seropositive rheumatoid arthritis: Comment: Given penicillin prophylaxis for acute rheumatic fever until age 12(in [place]) Onset RA 2001. ++RF+++CCP On Enbrel since 2003 effective. Was on Humira for short period of time, was not effective Code(s): M05.9 - Rheumatoid arthritis with rheumatoid factor, unspecified Category: Medical Plan: This is a 63-year-old female with seropositive RA who presents for follow-up. She remains on Enbrel 50 mg weekly. Not doing well with recurrent flare-ups, on exam she has multiple swollen and tender joints. We will need to change DMARDs. At this time patient had secondary nonresponse to Enbrel and failed Humira in the past. Does risks and benefits of Actemra. Patient agreed to proceed. Will start prior authorization for Actemra Can use prednisone 5-10 mg once daily as needed for flare-ups Patient has dental cleaning today, per her dentist she needs to take 2000 mg of amoxicillin before the procedure, she was not able to connect with her PCP. I provided her with amoxicillin prescription Labs before next visit in 3 months (2) Long-term use of immunosuppressant medication: Code(s): Z79.899 - Other termite helper (current) drug therapy Category: Medical Plan: Side effects of Actemra were discussed with the patient in detail including increased risk of infection, Diverticulitis, reactivation of latent TB, possible increased risk of solid and skin tumors. Patient fully aware. Advised patient to seek medical care [facility] if patient has an infection and advised patient to stop the medication until the infection is resolved. Plan I spent 23 minutes reviewing patient's chart, evaluating patient, ordering diagnostic workup, counseling patient and documenting in the chart Orders: Orders Complete Blood Count Auto Diff 3 Months M05.9 - Rheumatoid arthritis with rheumatoid factor, unspecified Comprehensive Met. Panel 3 Months M05.9 - Rheumatoid arthritis with rheumatoid factor, unspecified C Reactive Protein 3 Months M05.9 - Rheumatoid arthritis with rheumatoid factor, unspecified Erythrocyte Sedimentation Rate 3 Months M05.9 - Rheumatoid arthritis with rheumatoid factor, unspecified Medications: New amoxicillin Prior to dental work 2,000 mg (4 x 500 mg) PO ONCE 4 caps 0RF Refilled prednisone Take 4 tabs daily for 1 week then 3 tabs daily for 1 week then 2 tabs daily for 1 week then 1 tab daily for 1 week then stop 70 tabs 0RF Coding Level of Care Code Est Pt Level 4 (67750) Diagnoses Seropositive rheumatoid arthritis M05.9 Long-term use of immunosuppressant medication Z79.899
[2024-03-04 11:36] VITALS: BP 122/70; PULSE 74; O2SAT 98; BMI 40.6
== END 2024-03-04 12:15 | disposition home or self-care (01) ==
PROVIDERS: PCP Internal Medicine; Visit Provider Student in an Organized Health Care Education/Training Program
DX: M05.79 Rheumatoid arthritis with rheumatoid factor of multiple sites without organ or systems involvement (principal); Z79.620 Long term (current) use of immunosuppressive biologic
CPT/HCPCS: 99214

== ENCOUNTER → 2024-03-04 11:25 | Outpatient (BNVA) | payer MEDICARE, SELFPAY | PROVIDERS: PCP Internal Medicine; Visit Provider Student in an Organized Health Care Education/Training Program | DX: M05.9 Rheumatoid arthritis with rheumatoid factor, unspecified (principal); Z79.899 Other long term (current) drug therapy | CPT/HCPCS: 99212 ==

== ENCOUNTER 2024-05-31 13:22 | Outpatient (REF) | payer OTHER, SELFPAY ==
[2024-05-31 13:35] LABS: MANUAL DIFF FLAG NO
[2024-05-31 14:26] LABS: Eosinophils Absolute Auto 0.7 X10*3/uL (0.0-0.4); Eosinophils Percent Auto 14.2 % (0-4); Hematocrit 39.1 % (37.0-47.0); Imm Gran Abs Auto 0.01 X10*3/uL (0.00-0.03); Imm Gran Pct Auto 0.2 % (0.0-0.4); Lymphocytes Percent Auto 40.3 % (20-40); Mean Corpuscular HGB Conc 33.2 g/dl (31.0-35.0); Mean Corpuscular Hemoglobin 27.8 pg (27.0-33.0); Mean Corpuscular Volume 83.7 fL (80.0-98.0); Mean Platelet Volume 11.4 fL (9.4-12.3); Monocytes Absolute Auto 0.3 X10*3/uL (0.1-1.2); Neutrophils Percent Auto 39.3 % (45-73); Platelet Count 222 X10*3/uL (160-400); Red Blood Count 4.67 X10*6/uL (4.20-5.50); Red Cell Distribution Width 12.8 % (11.0-16.0)
[2024-05-31 14:43] LABS: Alanine Aminotransferase 26 U/L (0-31); Albumin Level 3.4 g/dL (3.5-5.0); Alkaline Phosphatase 81 U/L (39-117); Anion Gap 8 (12-20); Aspartate Amino Transferase 22 U/L (5-31); Bilirubin Total 0.3 mg/dL (0.0-1.0); Blood Urea Nitrogen 21 mg/dL (9-16); C Reactive Protein 0.44 mg/dL (< or = 0.50); Calcium 8.6 mg/dL (8.4-10.2); Carbon Dioxide 28 mmol/L (22-29); Chloride 109 mmol/L (96-108); Estimated Glomerular Filt Rate > 60; Glucose Random 118 mg/dL (60-115); Potassium 4.3 mmol/L (3.3-5.1); Sodium 141 mmol/L (135-145); Total Protein 7.1 g/dL (6.5-8.0)
--- OUTSIDE RECORDS SUMMARY | 2024-05-31 14:58 | XMS_ITS | Encounter Summary ---
Author Organization [facility] Address [address] [place] [address] Care Team Providers Care Validation Leader Name Role Phone Nitesh Fitzpatrick MD Primary Care Provider [phone] Reason for Visit * Therapy (Routine) - Authorized Specialty Diagnoses / Procedures Referred By Jamar t Referred To Contact Physical Therapy Diagnoses Osteoarthritis of left knee, unspecified osteoarthritis type Acute pain of left knee Juan Manuel Quezada, [address] [place] [address] Phone: tel: fax: Referral ID Status Reason Start Date Expiration Date Visits Requested Visits Authorized [id number] Authorized Consult and Treat 02/13/2024 02/12/2025 20 20 Encounter Details Date Type Department Care Team (Latest Contact Info) Description 05/02/2024 11:00 AM EST Treatment [address] [id number] Jamey Ma PTA Osteoarthritis of left knee, unspecified osteoarthritis type (Primary Dx) Social History Tobacco Use Types Packs/Day Years Used Date Smoking Tobacco: Never Smokeless Tobacco: Never Alcohol Use Standard Drinks/Week Comments Yes 0 (1 standard drink = 0.6 oz pur e alcohol) Comments Unknown Sex and Gender Information Value Date Recorded Sex Assigned at Not on file Legal Sex Female 2:57 AM EST Gender Identity Not on file Sexual Orientation Not on file documented as of this encounter Progress Notes * Jamey Ma PTA - 05/02/2024 11:00 AM EST [facility] - Outpatient PHYSICAL THERAPY DAILY TREATMENT NOTE - OP Date: 05/02/2024 Visit Number: 3 Patient Name: Lina Stevenson : 1960 Age: 63 y.o. Gender: female Diagnosis: ICD-10-CM ICD-9-CM 1. Osteoarthritis of left knee, unspecified osteoarthritis type M17.12 715.96 Date of Onset/Surgery: 04/11/2024 Referring Provider: Juan Manuel Quezada NP [facility] / Plan: [facility] CARE / Product Type: *No Product type* / Patient Identified by: Jamey Ma PTA Language: Telugu Medications: Current Outpatient Medications on File Prior to Visit Medication Sig Dispense Refill acetaminophen (TYLENOL) 500 mg capsule Take 1-2 Caps by mouth 3 times daily as needed (pain). diclofenac (VOLTAREN) 1 % topical gel Apply 4 g topically 2 (two) times a day. 1 each 1 DULoxetine (CYMBALTA) [address] capsule Take 40 mg by mouth daily. etanercept (EnbreL SureClick) 50 mg/mL (1 mL) injection pen Inject 50 mg as directed every 7 days. hydrocortisone (ANUSOL-HC) [address] Suppository rectally as needed for Hemorrhoids. LORazepam (ATIVAN) 1 mg tablet Take 1 Tab by mouth 2 times daily as needed for Anxiety (or panic attack). mirabegron (Myrbetriq) 25 mg 24 hr tablet Take 1 Tablet by mouth daily. miscellaneous medical supply misc CPAP Inhale into the lungs. Life supply pressure 7 triamcinolone (KENALOG) 0.1 % cream Apply 1 Applicator topically 2 times daily. zolpidem (AMBIEN) 5 mg tablet 1 Tab at bedtime as needed. No current facility-administered medications on file prior to visit. Allergies: is allergic to lisinopril and morphine. Precautions: Fall risk: No Patient/Caregiver Goals: SUBJECTIVE Subjective Report: pt reports a lot of knee pain after doing the exercise las time.. pt reports shethought she would be getting heat and Utrasound Chart Reviewed: Yes Pain 3/10 pain currently OBJECTIVE TREATMENT INTERVENTION: Pt 10 min late for appt Seated LAQ with orange tband x 20 (B) Seated knee flexion with orange tband x 20 (B) Seated hip abd and marching x 20 each (B) with orang tband ASSESSMENT/Response to Treatment Fair discussed with pt the US would be a part of therapy but exercises would need to be included.. duscussed the use NWB there ex to start along with US Patient Education: Education provided: Yes Education Provided To: Patient utilizing Explanation mode(s) of education Response to Education: Verbal Understanding PLAN POC Development/Review: No Change in the Plan of Care; Participants: Patient Total Treatment Time: 15 Modalities: Therapeutic procedures: Documentation completed by Jamey Ma PTA documented in this encounter Plan of Treatment Upcoming Encounters Date Type Department Care Team (Late st Contact Info) Description 06/05/2024 8:40 AM EDT Consult Gastroenterology - [address] [phone] Zenaida Chambers NP [address] [address] 09/27/2024 9:00 AM EDT Office Visit Adult Medicine [address] [phone] Nitesh Fitzpatrick MD [address] [place] [phone] documented as of this encounter Goals Goal Patient Goal Type Associated Problems Recent Progress Patient-Stated? Author PT LTGs General Yes Darell Lubin, PT Note: Pt will complete 6 minute walk with no left knee pain Pt will present with negative valgus stress test on Left knee Pt will be independent with HEP documented as of this encounter Visit Diagnoses Diagnosis Osteoarthritis of left knee, unspecified osteoarthritis type- Primary documented in this encounter Care Teams Validation Leader Relationship Specialty Start Date End Date Nitesh Fitzpatrick MD [address] [place] [address] PCP - General Internal Medicine 06/29/21 documented as of this encounter
--- OUTSIDE RECORDS SUMMARY | 2024-05-31 14:58 | XMS_ITS | Encounter Summary ---
Author Organization [facility] Address [address] [place] [address] Phone Care Team Providers Care Civil Service Clerk Name Role Phone Bettina Aguiar MD Primary Care Provider [phone] Encounter Details Date Type Department Care Team (Late Contact Info) Description 05/03/2023 Documentation Only [facility] [address] [place] [address] Mariana Lomeli [address] [place] [phone] Social History Tobacco Use Types Packs/Day Years Used Date Smoking Tobacco: Never Alcohol Use Standard Drinks/Week Comments No 0 (1 standard drink = 0.6 oz pure alcohol) Alcoholic Drinks/day: Occasional social drink Comments Unknown Sex and Gender Information Value Date Recorded Sex Assigned at Not on file Legal Sex Female 4:33 PM EST Gender Identity Not on file Sexual Orientation Not on file documented as of this encounter Plan of Treatment Upcoming Encounters Date Type Department Care Team (Late st Contact Info) Description 04/08/2025 1:45 PM EST Office Visit [facility] [address] [place] [address] Stef Wright MD [address] [place] [address] documented as of this encounter Visit Diagnoses Not on filedocumented in this encounter Care Teams Civil Service Clerk Relationship Specialty Start Date End Date Bettina Aguiar MD PCP - General 01/22/19 documented as of this encounter
--- OUTSIDE RECORDS SUMMARY | 2024-05-31 14:58 | XMS_ITS | Encounter Summary ---
Author Organization [facility] Address [address] [place] [address] Phone Care Team Providers Care Forming Machine Upkeep Mechanic Name Role Phone Bettina Aguiar MD Primary Care Provider [phone] Encounter Details Date Type Department Care Team (Late Contact Info) Description 02/17/2022 Documentation Only [facility] [address] [place] [address] Tish Miguel PA Social History Tobacco Use Types Packs/Day Years [...] Visit [facility] [address] [place] [address] Stef Wright MD [address] [place] [address] [place] [id number] documented as of this encounter Visit Diagnoses Not on filedocumented in this encounter Care Teams Forming Machine Upkeep Mechanic Relationship Specialty Start Date End Date Bettina Aguiar MD PCP - General 11/5/19 documented as of this encounter
--- OUTSIDE RECORDS SUMMARY | 2024-05-31 14:58 | XMS_ITS | Clinical Summary ---
Author Organization [facility], Address [address] [place] [address] [place] [address] Phone Care Team Providers Care Automatic Thread Winder Name Role Phone Bettina Aguiar MD Primary Care Provider [phone] Allergies Active Allergy Reactions Criticality Noted Date Comments Lisinopril 10/19/2015 Cough Morphine Other (see comments) 07/19/2016 Gives pt a bad feeling Other reaction(s): OTHER Gives pt a bad feeling Medications Etanercept (ENBREL SURECLICK) 50 MG/ML solution auto-injector 50 mg 9 Active omeprazole (PriLOSEC) [address] capsule TAKE 1 CAPSULE BY MOUTH TWICE DAILY 8 Active zolpidem (AMBIEN) 5 MG tablet Comments: Filled Date: Dec 06 2017 12:00AM Patient Notes: TK 1 T PO QHS UTD Duration: 30 4 Active Cholecalciferol (Vitamin D-3) 25 MCG (1000 UT) capsule Take 1 capsule by mouth 0 Active DULoxetine HCl 40 MG capsule delayed-release particles 0 Active meloxicam (MOBIC) 15 MG tablet TK 1 T PO ONCE D 0 Active oxybutynin XL (DITROPAN-XL) 15 MG 24 hr tablet 0 Active acetaminophen (TYLENOL) 500 MG tablet Take by mouth every 6 (six) hours if needed for mild pain Active LORazepam (ATIVAN) 0.5 MG tablet TAKE 1 TABLET BY MOUTH THREE TIMES DAILY NEEDED FOR PANIC ATTACKS 1 Active DULCOLAX 5 MG EC tablet TAKE 2 TABLETS BY MOUTH RIGHT BEFORE STARTING BOWEL PREP 3 Active metFORMIN (GLUCOPHAGE) 500 MG tablet Take 500 mg by mouth 1 (one) time each day with breakfast 3 Active Myrbetriq 25 MG tablet sustained-relea se 24 hour Take 1 tablet by mouth 1 (one) time each day 3 Active Active Problems Problem Noted Date Diagnosed Date Type 2 diabetes mellitus without complication Microalbuminuria 02/21/2022 Right flank pain 02/22/2021 Chronic kidney disease stage 2 03/07/2019 Proteinuria 03/02/2012 Overview (03/07/2019): ~ 250mg. (2011): JAIME,ANCA, PADMINI negative. On lisinopril. No hx HTN Resolved Problems Problem Noted Date Diagnosed Date Resolved Date Essential (primary) hypertension 02/22/2021 02/22/2021 Chronic kidney disease due to hypertension 03/07/2019 02/22/2021 Microscopic hematuria 03/07/20192020 Prolapsed lumbar intervertebral disc 03/07/2019 04/20/2020 Spondylosis without myelopathy 03/07/2019 04/20/2020 Tc's thyroiditis 04/11/201808/2020 Overview (03/07/2019): biopsy 11/2011 Vitamin D deficiency 01/26/2018 021 Calcific tendinitis of achilles tendon 11/16/2017 04/20/2020 Body mass index 30+ - obesity 07/24/2017 04/20/2020 Varicose veins of bilateral lower limbs 07/24/2017 04/20/2020 Hemangioma of choroid 01/23/20172020 Overview (03/07/2019): Right eye Stress incontinence 01/23/2017 04/20/19 21 Congestion of throat 12/13/2016 021 Psoriasis 07/20/2016 04/20/2020 Overview (03/07/2019): Psoriasis 08/03 back; left lower Esophageal reflux 09/24/2013 04/20/2020 Obstructive sleep apnea syndrome 08/06/2013 04/20/2020 Overview (10/03/2019): CPAP CPAP [facility] Polysomnogram: Date 04/26/2013; Wt 200#; BMI 34; SE 84%; SM 88%; REM 26%; AHI 9, REM AHI 14, Central apneas 5; Obstructive apneas 0; Mixed apneas 0; hypopneas 41; average oxygen saturation 94% (lowest 83%); PLMs 4. [facility] Polysomnogram: Date 07/20/2013; Wt 200#; BMI 34; SE 77%; SM 78%; REM 19%; On CPAP @ 7; RDI 0.3 (AHI 0.3), Central apneas 1; Obstructive apneas 0; Mixed apneas 0; hypopneas 0; RERAs 0; and, average oxygen saturation was 99%. For the entire study, PLMs ~37. [facility] Polysomnogram treatment study. Date 04/14/2019. Wt 230#; BMI 40; SE 92 % SM 93 %; spent 11 % of the study in REM. On CPAP @ 8; RDI 0.3 (AHI 0.3), Central apneas 1; Obstructive apneas 0; Mixed apneas 0; hypopneas 0; RERAs 0; and, average oxygen saturation was 93%. For the entire study, PLMs ~26. [facility]ud[facility] ESS 16; patient refused RLS symptom screening. MRI of head abnormal 10/01/2012 021 Overview (03/07/2019): White matter changes. Followed by Neuro Spondylolisthesis 03/02/2012 04/20/2020 Overview (03/07/2019): L4-L5 MRI 07/2016 Family history of malignant neoplasm of breast in first degree relative 01/06/2012 04/20/19 21 Depressive disorder 12/13/2011 04/20/19 21 Seropositive rheumatoid arthritis 09/22/2011 04/20/2020 Overview (03/07/2019): Given penicillin prophylaxis for acute rheumatic fever until age 12 Onset 2001.RFpositive On Enbrel since 2003 Encounters Date Type Department Care Team Description 03/05/2024 4:00 PM EST Office Visit [facility], [address] [place] [address] Stef Wright MD Chronic kidney disease stage 2 (Primary Dx); Type 2 diabetes mellitus without complication (HCC); Microalbuminuria from Last 3 Months Immunizations Name Administration Dates Next Due Influenza Split High Dose Preservative Free IM 1 04/30/2017 Influenza TIV (IM) 01/04/2013,11/22/2011 Influenza, MDCK, PF, Quadrivalent 01/22/2020, Influenza, MDCK, Quadrivalent, with preservative 02/06/2017 PPD Test 12/08/2014,12/12/2011 Tdap 05/01/2012 Family History Medical History Relation Comments Cancer Child brother prostate Cancer Father leukemia Diabetes Father Heart disease Father Hypertension Father Cancer Mother breast/breast ca ncer Kidney disease Mother Cancer Sibling Brother-prostate cancer & throat cancer, Sister had a colon cancer Hypertension Sibling 3 brothers Relation Status Comments Child Father Unknown Mother Unknown Sibling Social History Tobacco Use Types Packs/Day Years Used Date Smoking Tobacco: Never Tobacco Cessation:Counseling Given: Not Answered Alcohol Use Standard Drinks/Week Comments No 0 (1 standard drink = 0.6 oz pure alcohol) Alcoholic Drinks/day: Occasional social drink Comments Unknown Sex and Gender Information Value Date Recorded Sex Assigned at Not on file Legal Sex Female 4:33 PM EST Gender Identity Not on file Sexual Orientation Not on file Last Filed Vital Signs Vital Sign Reading Time Taken Comments Blood Pressure 138/82 02/21/2023 2:09 PM EST Pulse 74 03/15/2018 12:00 PM EST Temperature - - Respiratory Rate 16 03/15/2018 12:00 PM EST Oxygen Saturation - - Inhaled Oxygen Concentration - - Weight 102 kg (223 lb 12.8 oz) 02/21/2023 2:09 P M EST Height 162.6 cm (5' 4 ) 02/21/2023 2:09 PM EST Body Mass Index 38.42 02/21/2023 2:09 PM EST Plan of Treatment Upcoming Encounters Date Type Department Care Team (Late st Contact Info) Description 04/08/2025 1:45 PM EST Office Visit [facility], [address] [place] [address] Stef Wright MD [address] [place] [address] Health Maintenance Due Date Last Done Comments Breast Cancer Screening 1960 Pneumococcal Vaccine: 65+ Years (1 of 2 - PCV) 05/24/1965 01/09/2023 Pneumococcal Vaccine: Pediatrics (0 to 5 Years) and At-Risk Patients (6 to 64 Years) (1 of 2 - PCV) 05/24/1966 01/09/2023 Colorectal Cancer Screening: Annual FOBT 05/24/2008 Colorectal Cancer Screening: Colonoscopy 05/24/2008 Colorectal Cancer Screening: Sigmoidoscopy 05/24/2008 Diabetes: Ophthalmology Exam 02/21/2022 Diabetes: Pedal Pulse Checked 02/21/2022 Diabetes: Sensory Foot Exam 02/21/2022 Diabetes: Visual Foot Exam 02/21/2022 Influenza Vaccine (#1) 2023 0, 01/22/2020, 02/07/2019, Additional history exists Diabetes: Hemoglobin A1C 07/04/2024 025, 06/12/2023, 02/15/2023, Additional history exists Hepatitis B Vaccine Aged Out No longe r eligible based on patient's age to complete this topic Procedures Procedure Name Priority Date/Time Associated Diagnosis Comments LIPID PANEL Routine 04/05/2024 10:31 AM EST Chronic kidney disease stage 2 HEMOGLOBIN A1C Routine 04/05/2024 10:30 AM EST Chronic kidney disease stage 2 Type 2 diabetes mellitus without complication (HCC) PROTEIN / CREATININE RATIO, URINE Routine 04/05/2024 10:30 AM EST Chronic kidney disease stage 2 Type 2 diabetes mellitus without complication (HCC) VITAMIN D 25 HYDROXY Routine 04/05/2024 10:30 AM EST Chronic kidney disease stage 2 Type 2 diabetes mellitus without complication (HCC) RENAL FUNCTION PANEL Routine 04/05/2024 10:30 AM EST Chronic kidney disease stage 2 Type 2 diabetes mellitus without complication (HCC) from Last 3 Months Results * (ABNORMAL) Lipid panel (04/05/2024 10:31 AM EST) Cholesterol 181 100 - 199 mg/dL [facility] Triglycerides 88 0 - 149 mg/dL [facility] HDL 52 >39 mg/dL [facility] VLDL Cholesterol Maximiliano 16 5 - 40 mg/dL [facility] LDL Calculated 113(H) 0 - 99 mg/dL [facility] Blood (Blood, Venous) 04/05/2024 10:31 AM EST 04/05/2024 us Stef Wright MD LAB BLOOD ORDERABLES Final Resul t Performing Organization Address City/[facility]/ZIP Co de Phone Number [facility] [address] [place] [address] * Protein, Total, Random Urine w/Creatinine (Protein/Creat Ratio) (04/05/2024 10:30 AM EST) Creatinine, Ur 79.4 Not Estab. mg/dL [facility] Protein, Ur 7.0 Not Estab. mg/dL [facility] Urine Protein/Creatin ine Ratio 88 0 - 200 mg/g creat [facility] Urine (Urine, Clean Catch) 04/05/2024 10:30 AM EST 04/05/2024 us Stef Wright MD LAB URINE ORDERABLES Final Resul t [facility] [place] [address] [place] [address] * (ABNORMAL) Vitamin D 25 Hydroxy (04/05/2024 10:30 AM EST) Vitamin D, 25-OH, Total 20.7(L) 30.0 - 100.0 ng/mL [facility] Comment: Vitamin D deficiency has been defined by the [place] of [employer] and an Endocrine Society practice guideline as a level of serum 25-OH vitamin D less than 20 ng/mL (1,2). The Endocrine Society went on to further define vitamin D insufficiency as a level between 21 and 29 ng/mL (2). 1. IOM ([place] of Medicine). 2010. Dietary reference ?? intakes for calcium and D. [place]: The ?? [employer]. 2. Louise MF, Telly AL, Bay CLEMENTS, et al. ?? Evaluation, treatment, and prevention of vitamin D ?? deficiency: an Endocrine Society clinical practice ?? guideline. JCEM. 2010; 96(7):1911-30. Blood (Blood, Venous) 04/05/2024 10:30 AM EST 04/05/2024 us Stef Wright MD LAB BLOOD ORDERABLES Final Resul t Performing Organization Address City/[facility]/ZIP Co de Phone Number [facility] [address] [place] [address] * (ABNORMAL) Hemoglobin A1c (04/05/2024 10:30 AM EST) Hemoglobin A1C 7.0(H) 4.8 - 5.6 % [facility] Comment: ? Prediabetes: 5.7 - 6.4 ? Diabetes: >6.4 ? Glycemic control for adults with diabetes: <7.0 Blood (Blood, Venous) 04/05/2024 10:30 AM EST 04/05/2024 us Stef Wright MD LAB BLOOD ORDERABLES Final Resul t [facility] [address] [place] [address] * (ABNORMAL) Renal Function Panel (04/05/2024 10:30 AM EST) Glucose 152(H) 70 - 99 mg/dL [facility] BUN 17 8 - 27 mg/dL [facility] Creatinine 0.84 0.57 - 1.00 mg/dL [facility] eGFR CKD-EPI CR 2020 78 >59 mL/min/1.7 3 [facility] BUN/Creatinine Ratio 20 12 - 28 [facility] Sodium 140 134 - 144 mmol/L [facility] Potassium 4.8 3.5 - 5.2 mmol/L [facility] Chloride 103 96 - 106 mmol/L [facility] Bicarbonate (CO2) 25 20 - 29 mmol/L [facility] Calcium 8.6(L) 8.7 - 10.3 mg/dL [facility] Albumin 3.8(L) 3.9 - 4.9 g/dL [facility] Phosphorus 2.7(L) 3.0 - 4.3 mg/dL [facility] Blood (Blood, Venous) 04/05/2024 10:30 AM EST 04/05/2024 us Stef Wright MD LAB BLOOD ORDERABLES Final Resul t [facility] [address] [place] [address] from Last 3 Months Insurance [employer] DUAL SNP ([id number]) [place]AT [id number] Care Teams Automatic Thread Winder Relationship Specialty Start Date End Date Bettina Aguiar MD PCP - General 01/22/19
--- OUTSIDE RECORDS SUMMARY | 2024-05-31 14:58 | XMS_ITS | Encounter Summary ---
Author Organization [facility] Address [address] [place] [address] Care Team Providers Care Heel Room Supervisor Name Role Phone Nitesh Fitzpatrick MD Primary Care Provider [phone] Reason for Referral * Consultation (Routine) - Authorized Specialty Diagnoses / Procedures Referred By Jamar rehman Referred To Contact Gastroenterology Diagnoses Type 2 diabetes mellitus with diabetic microalbuminuria, without long-term current use of insulin ([facility]) CKD (chronic kidney disease) stage 2, GFR 60-89 ml/min Seropositive rheumatoid arthritis (CMS/[facility]) Thyroid nodule Fatty liver ROLY on CPAP Anxiety and depression Insomnia, unspecified type Nitesh Fitzpatrick MD [address] [place] [id number] Phone: tel: fax: Garry Michel MD [address] [facility] [address] [place] [address] Phone: tel: fax: Referral ID Status Reason Start Date Expiration Date Visits Requested Visits Authorized [id number] Authorized Specialty Services Required 05/28/2024 05/28/2025 1 1 * Imaging (Routine) - Authorized Specialty Diagnoses / Procedures Referred By Jamar rehman Referred To Contact Radiology Diagnoses Encounter for osteoporosis screening in asymptomatic postmenopausal patient Procedures BD Bone Density DXA Axial w Vertebral Fx Asmt Nitesh Fitzpatrick MD [address] [place] [id number] Phone: tel: fax: [address] Phone: tel: Referral ID Status Reason Start Date Expiration Date V isits Requested Visits Authorized [id number] Authorized 05/28/2024 05/28/2025 1 1 * Imaging (Routine) - Authorized Specialty Diagnoses / Procedures Referred By Contac t Referred To Contact Radiology Diagnoses Encounter for screening mammogram for malignant neoplasm of breast Procedures MG Mammo Digital Screening w Steve bilat Nitesh Fitzpatrick MD [address] [place] [address] Phone: tel: fax: [address] Phone: tel: Referral ID Status Reason Start Date Expiration Date V isits Requested Visits Authorized [id number] Authorized 05/28/2024 05/28/2025 1 1 Reason for Visit * Reason Comments Follow-up Encounter Details Date Type Department Care Team (Late st Contact Info) Description 05/28/2024 8:00 AM EDT Office Visit Adult Medicine [address] [phone] Nitesh Fitzpatrick MD [address] [place] [phone] Type 2 diabetes mellitus with diabetic microalbuminuria, without long-term current use of insulin (CMS/HCC) (Primary Dx); CKD (chronic kidney disease) stage 2, GFR 60-89 ml/min; Seropositive rheumatoid arthritis (CMS/HCC); Thyroid nodule; Fatty liver; ROLY on CPAP; Anxiety and depression; Insomnia, unspecified type; Encounter for screening mammogram for malignant neoplasm of breast; Encounter for osteoporosis screening in asymptomatic postmenopausal patient Social History Tobacco Use Types Packs/Day Years Used Date Smoking Tobacco: Never Smokeless Tobacco: Never Tobacco Cessation:Counseling Given: Not Answered Alcohol Use Standard Drinks/Week Comments Yes 0 (1 standard drink = 0.6 oz pur e alcohol) Housing Instability Answer Date Recorde d Are you worried that in the next 2 months you may not have stable housing? No 05/24/2024 Food Access & Nutrition Answer Date Rec orded Do you have access to a vari ety of food including fruits and vegetables? Yes 05/24/2024 Access to Healthcare Answer Date Record ed Within the last 3 months, ho w many times did you visit the emergency department for your medical care? 0 05/24/2024 Health Literacy Answer Date Recorded How often do you need to hav e someone help you when you read instructions, pamphlets, or other written material from your doctor or pharmacy? Never 05/24/2024 Caregiver: How often do you need to have someone help you when you read instructions, pamphlets, or other written material from your doctor or pharmacy? Not on file 05/24/2024 Financial Risk Answer Date Recorded How hard is it for you to pa y for the very basics like food, housing, medical care, and air conditioning / heating? Somewhat hard 05/24/2024 Transportation Answer Date Recorded Has the lack of transportati on kept you from meetings, work, or from getting things needed for daily living? No Has the lack of transportati on kept you from medical appointments or from getting medications? No 05/24/2024 Social Isolation Answer Date Recorded How often do you feel lonely or isolated from those around you? Sometimes 05/24/2024 Food Risk Answer Date Recorded Within the past 12 months we worried whether our food would run out before we got money to buy more. Never true 025 Within the past 12 months th e food we bought just didn't last and we didn't have money to get more. Sometimes true 05/24/2024 Dependent Care Answer Date Recorded Do you need help finding or paying for care for your loved ones. For example, director maternal child or elderly care for an older adult? No 05/24/2024 Education Answer Date Recorded Do you think completing more education or training, like finishing a GED, going to college, or learning a trade, would be helpful for you? N/A 05/24/2024 Employment and Income Answer Date Recor ded During the last four weeks, have you been actively looking for work? No 05/24/2024 Living Situation Answer Date Recorded What is your living situation? 0 05/24/2024 Comments Unknown Sex and Gender Information Value Date Recorded Sex Assigned at Not on file Legal Sex Female 2:57 AM EST Gender Identity Not on file Sexual Orientation Not on file documented as of this encounter Last Filed Vital Signs Vital Sign Reading Time Taken Comments Blood Pressure 138/76 05/28/2024 7:57 AM EDT Pulse 93 05/28/2024 7:57 AM EDT Temperature 36.6 ??C (97.8 ??F) 05/28/2024 7:57 AM ED T Respiratory Rate 14 05/28/2024 7:57 AM EDT Oxygen Saturation - - Inhaled Oxygen Concentration - - Weight 108 kg (238 lb) 05/28/2024 7:57 AM EDT Height - - Body Mass Index 40.85 02/13/2024 8:25 AM EST documented in this encounter Ordered Prescriptions Prescription Sig Dispense Quantity Refills Last Filled Start Date End Date metFORMIN XR (GLUCOPHAGE-XR) 500 mg 24 hr tablet Take 1 tablet (500 mg total) by mouth 2 (two) times a day with meals. Do not crush, chew, or split. 180 each 1 05/28/2024 documented in this encounter Progress Notes * Nitesh Fitzpatrick MD - 05/28/2024 8:00 AM EDT CHIEF COMPLAINT: Follow-up IDENTIFIER: Lina Stevenson is a 64 y.o. old female. HPI: 63-year-old female patient with past medical history of seropositive rheumatoid arthritis, thyroid nodule, fatty liver, microalbuminuria on losartan, urinary incontinence, DM2, CKD stage II, obesity,obstructive sleep apnea on CPAP therapy, history of cervical spine surgery, paresthesias of extremities, anxiety/depression and insomnia, who is seen here for med review follow-up exam. Patient reported that her daughter was recently diagnosed with liver cirrhosis and she is worried about her fattyliver and risk of liver cirrhosis. I reassured her and I will refer her to the shift boss. I recommended her to avoid alcohol drinking, stay on low calorie, low-fat diet to lose weight. She is compliant with meds and blood sugars are under control. She follows with milling supervisor and she cheli Enbrel and joint pains are under control. She is compliant with CPAP therapy. Patient follows with a therapist and psychiatrist for anxiety and depression/insomnia and she is on Cymbalta 40 mg daily. Health maintenance is reviewed. She had normal colonoscopy in 11/2022. Ordered mammogram and bone density scan. ROS: GENERAL: No malaise, significant weight loss or fever HEENT: No changes in hearing or vision, nose bleeds or other nasal problems NECK: No lumps RESPIRATORY: No cough, wheezing or shortness of breath CARDIOVASCULAR: No chest pain, or palpitations GI: No abdominal pain, hematochezia, melena : No dysuria, oliguria, polyuria, hematuria, flank pain MUSCULOSKELETAL: No joint pain or swelling, back pain, or muscle pain. SKIN: No lesions, rash or itching NEURO: No persistent headache, syncope, seizures, weakness or numbness PAST MEDICAL HISTORY: Patient Active Problem List Diagnosis Date Noted Type 2 diabetes mellitus with diabetic microalbuminuria, without long-term current use of insulin ([facility]) 05/27/2024 CKD (chronic kidney disease) stage 2, GFR 60-89 ml/min 05/27/2024 Insomnia 06/12/2023 Osteoarthritis of left knee 06/12/2023 Paresthesia 06/12/2023 Fatty liver 05/24/2022 Hemorrhoids 05/24/2022 Type 2 diabetes mellitus without complication, without long-term current use of insulin ([facility]) 05/24/2022 Vitamin D deficiency 01/26/2018 Calcific Achilles tendinitis 11/16/2017 Obesity (BMI 30-39.9) 07/24/2017 Varicose veins of legs 07/24/2017 Hemangioma of choroid 01/23/2017 Stress incontinence 01/23/2017 Psoriasis 07/20/2016 Esophageal reflux 09/24/2013 ROLY on CPAP 08/06/2013 Abnormal MRI scan, head 10/01/2012 Microalbuminuria 03/02/2012 Spondylolisthesis 03/02/2012 Anxiety and depression 12/13/2011 Seropositive rheumatoid arthritis ([facility]) 09/22/2011 Thyroid nodule 09/22/2011 Past Surgical History: Procedure Laterality Date SECTION x3 PROCEDURE: HISTORICAL CHOLECYSTECTOMY PROCEDURE: HISTORICAL CHOLECYSTECTOMY COLONOSCOPY 12/20/2011 PROCEDURE: FL COLONOSCOPY FLX DX W/COLLJ SPEC WHEN PFRMD; COMMENT: normal ESOPHAGOGASTRODUODENOSCOPY 09/26/2016 PROCEDURE: FL EGD TRANSORAL BIOPSY SINGLE/MULTIPLE; COMMENT: mild gastritis, reflux esophagitis; noH. pylori or Barretts Esophagus HYSTERECTOMY 1991 PROCEDURE: HISTORICAL HYSTERECTOMY; COMMENT: Unilateral SPO NECK SURGERY 01/15/13 PROCEDURE: HISTORICAL NECK SURGERY; COMMENT: ACDF C5-6, C6-7 Dr. Lisa Jasso at [facility] OTHER SURGICAL HISTORY Left 02/05/2014 PROCEDURE: FL BX/EXC LYMPH NODE OPEN DEEP AXILLARY NODE; COMMENT: Negative SOCIAL HISTORY: Social History Tobacco Use Smoking status: Never Smokeless tobacco: Never Substance Use Topics Alcohol use: Yes FAMILY HISTORY: Family History Problem Relation Name Age of Onset Breast cancer Mother 73.00 at 74 Leukemia Father <50 Throat cancer Brother Lung Colon cancer Sister 65.00 adenocarcinoma Breast cancer Other 45.00 first cousin on mother side 2 primary breast at 48 Prostate cancer Brother 65.00 Other (Other: other cancer) Brother non-hodgkins; Lung Cancer Other (Other: thyroid cancer) Other 17.00 first cousin once removed Family Status Relation Name Status Mother (Not Specified) Father (Not Specified) Brother (Not Specified) Sister (Not Specified) Other (Not Specified) Brother (Not Specified) Brother (Not Specified) Other (Not Specified) No partnership data on file MEDICATIONS DISCONTINUED/REORDERED: Medications Discontinued During This Encounter Medication Reason triamcinolone (KENALOG) 0.1 % cream ACTIVE MEDICATIONS: No outpatient medications have been marked as taking for the 05/28/24 encounter (Office Visit) with Nitesh Fitzpatrick MD. ALLERGIES: Allergies Allergen Reactions Lisinopril Cough Morphine Other Gives pt a bad feeling PHYSICAL EXAM: Visit Vitals BP 138/76 (BP Location: Left arm, Patient Position: Sitting, BP Cuff Size: Adult) Pulse 93 Temp 36.6 ??C (97.8 ??F) (Temporal) Resp 14 Wt 108 kg (238 lb) BMI 40.85 kg/m?? Smoking Status Never BSA 2.11 m?? Physical Exam APPEARANCE: Alert and in no acute distress EYES: PERRLA, conjunctiva and sclera normal. EARS: External ears normal. NOSE/SINUS: Nares normal. MOUTH/THROAT: no erythema or exudates HEART: RRR with normal S1 and S2, no murmurs LUNG: clear to auscultation, no wheezing ABDOMEN: Bowel sounds normoactive, soft, non-tender and no palpable masses. BACK: No pain to palpation EXTREMITIES: No edema NEURO: Awake, alert and oriented x 3. No focal neurological deficits SKIN: No rashes LABS: @CBC@ No results found for: NA , K , CL , CO2 , GLUCOSE , BUN , CREATININE , CALCIUM , PROT , ALBUMIN , BILITOT , AST , ALT , URICACID , PHOS , MG , ALKPHOS , CKTOTAL , EGFR Lab Results Component Value Date HGBA1C 6.1 06/12/2023 No results found for: TSH Lab Results Component Value Date CHOL 204 (A) 06/12/2023 TRIG 138 06/12/2023 HDL 63 06/12/2023 LDL 114 (A) 06/12/2023 IMAGING: Abdominal ultrasound on 01/2022-fatty liver IMPRESSION: 1. Type 2 diabetes mellitus with diabetic microalbuminuria, without long-term current use of insulin (CMS/HCC) 2. CKD (chronic kidney disease) stage 2, GFR 60-89 ml/min 3. Seropositive rheumatoid arthritis (CMS/HCC) 4. Thyroid nodule 5. Fatty liver 6. ROLY on CPAP 7. Anxiety and depression 8. Insomnia, unspecified type 9. Encounter for screening mammogram for malignant neoplasm of breast 10. Encounter for osteoporosis screening in asymptomatic postmenopausal patient PLAN: Last A1c level was 7.0. Patient is counseled for low-carb diet. Continue metformin XL 500 mg twice a day. Recent creatinine level was stable, she does not use any NSAIDs. She is on Enbrel and she follows with milling supervisor at [facility] and joint pain symptoms are under control. Recent ultrasound thyroid suggestive of stable thyroid nodule and she was seen by the program support clerk. She has history of fatty liver and recently liver enzymes are within acceptable range. Patient is recommended to avoid alcohol drinking and to lose weight. I will refer to the shift boss because she is worried about risk of liver cirrhosis. Patient is compliant with CPAP therapy. She follows with the Therapist and psychiatrist for anxiety/depression/insomnia. Labs ordered including A1c, CMP, urine microalbumin level, TSH. Follow-up exam in 4 months All questions and concerns were addressed. Lina Stevenson verbalizes understanding and agrees with this treatment plan. Patient was reminded to call or return to the office if any new or existing problems arise. Orders Placed This Encounter Procedures MG Mammo Digital Screening w Steve bilat BD Bone Density DXA Axial w Vertebral Fx Asmt Hemoglobin A1c Comprehensive metabolic panel Microalbumin creatinine urine ratio Thyroid stimulating hormone with reflex to free t4 and free t3 Ambulatory referral to Gastroenterology MG MAMMO DIGITAL SCREENING W STEVE BILAT BD BONE DENSITY DXA AXIAL W VERTEBRAL FX ASMT AMB REFERRAL TO GASTROENTEROLOGY Nitesh Fitzpatrick MD on 05/28/2024 at 6:56 PM EDT Today's documentation was made using voice recognition software.This note may contain grammatical errors secondary to this software. documented in this encounter Plan of Treatment Upcoming Encounters Date Type Department Care Team (Late st Contact Info) Description 06/05/2024 8:40 AM EDT Consult Gastroenterology - [place] [address] [place] [phone] Zenaida Chambers NP [address] [facility] [address] [place] [address] 09/27/2024 9:00 AM EDT Office Visit Adult Medicine [address] [phone] Nitesh Fitzpatrick MD [address] [place] [id number] Scheduled Orders Name Type Priority Associated Diagnoses Orde r Schedule MG Mammo Digital Screening w Steve bilat Imaging Routine Encounter for screening mammogram for malignant neoplasm of breast 1 Occurrences starting 05/28/2024 until 05/27/2025 BD Bone Density DXA Axial w Vertebral Fx Asmt Imaging Routine Encounter for osteoporosis screening in asymptomatic postmenopausal patient 1 Occurrences starting 05/28/2024 until 05/27/2025 Hemoglobin A1c Lab Routine Type 2 diabetes mellitus with diabetic microalbuminuria, without long-term current use of insulin (CMS/HCC) CKD (chronic kidney disease) stage 2, GFR 60-89 ml/min Seropositive rheumatoid arthritis (CMS/HCC) Thyroid nodule Fatty liver ROLY on CPAP Anxiety and depression Insomnia, unspecified type 1 Occurrences starting 05/28/2024 until 05/28/2025 Comprehensive metabolic panel Lab Routine Type 2 diabetes mellitus with diabetic microalbuminuria, without long-term current use of insulin (CMS/HCC) CKD (chronic kidney disease) stage 2, GFR 60-89 ml/min Seropositive rheumatoid arthritis (CMS/HCC) Thyroid nodule Fatty liver ROLY on CPAP Anxiety and depression Insomnia, unspecified type 1 Occurrences starting 05/28/2024 until 05/28/2025 Microalbumin creatinine urine ratio Lab Routine Type 2 diabetes mellitus with diabetic microalbuminuria, without long-term current use of insulin (CMS/HCC) CKD (chronic kidney disease) stage 2, GFR 60-89 ml/min Seropositive rheumatoid arthritis (CMS/HCC) Thyroid nodule Fatty liver ROLY on CPAP Anxiety and depression Insomnia, unspecified type 1 Occurrences starting 05/28/2024 until 05/28/2025 Thyroid stimulating hormone with reflex to free t4 and free t3 Lab Routine Type 2 diabetes mellitus with diabetic microalbuminuria, without long-term current use of insulin (CMS/HCC) CKD (chronic kidney disease) stage 2, GFR 60-89 ml/min Seropositive rheumatoid arthritis (CMS/HCC) Thyroid nodule Fatty liver ROLY on CPAP Anxiety and depression Insomnia, unspecified type 1 Occurrences starting 05/28/2024 until 05/28/2025 Scheduled Referrals Name Type Priority Associated Diagnoses Order Schedule Ambulatory referral to Gastroenterology Outpatient Referral Routine Type 2 diabetes mellitus with diabetic microalbuminuria, without long-term current use of insulin (CMS/HCC) CKD (chronic kidney disease) stage 2, GFR 60-89 ml/min Seropositive rheumatoid arthritis (CMS/HCC) Thyroid nodule Fatty liver ROLY on CPAP Anxiety and depression Insomnia, unspecified type 1 Occurrences starting 05/28/2024 until 05/28/2025 documented as of this encounter Goals Goal Patient Goal Type Associated Problems Recent Progress Patient-Stated? Author PT LTGs General Yes Darell Lubin PT Note: Pt will complete 6 minute walk with no left knee pain Pt will present with negative valgus stress test on Left knee Pt will be independent with HEP documented as of this encounter Visit Diagnoses Diagnosis Type 2 diabetes mellitus with diabetic microalbuminuria, without long-term current use of insulin (CMS/HCC)- Primary CKD (chronic kidney disease) stage 2, GFR 60-89 ml/min Chronic kidney disease, Stage II (mild) Seropositive rheumatoid arthritis (CMS/HCC) Thyroid nodule Nontoxic uninodular goiter Fatty liver Other chronic nonalcoholic liver disease ROLY on CPAP Anxiety and depression Insomnia, unspecified type Encounter for screening mammogram for malignant neoplasm of breast Encounter for osteoporosis screening in asymptomatic postmenopausal patient documented in this encounter Discontinued Medications Medication Sig Discontinue Reason Start Date End Da te triamcinolone (KENALOG) 0.1 % cream Apply 1 Applicator topically 2 times daily. 05/24/2022 05/28/2024 documented as of this encounter Additional Health Concerns Assessment Noted Time PHQ-9 Depression Total Score: 0 05/25/19 25 1:49 AM EST documented as of this encounter Care Teams Heel Room Supervisor Relationship Specialty Start Date End Date Nitesh Fitzpatrick MD [address] [place] [address] PCP - General Internal Medicine 06/29/21 documented as of this encounter
--- OUTSIDE RECORDS SUMMARY | 2024-05-31 14:59 | XMS_ITS | Clinical Summary ---
Author Organization [facility] Address [address] [place] [phone] Phone Care Team Providers Care Deputy Bailiff Name Role Phone Nitesh Fitzpatrick MD Primary Care Provider Allergies Active Allergy Reactions Criticality Noted Date Comments Lisinopril 10/19/2015 Cough Morphine Other 07/19/2016 Gives pt a bad feeling Medications miscellaneous medical supply misc CPAP Inhale into the lungs. Life supply pressure 7 Active acetaminophen (TYLENOL) 500 mg capsule Take 1-2 Caps by mouth 3 times daily as needed (pain). 0 Active DULoxetine (CYMBALTA) [address] capsule Take 40 mg by mouth daily. Active etanercept (EnbreL SureClick) 50 mg/mL (1 mL) injection pen Inject 50 mg as directed every 7 days. 2 Active hydrocortisone (ANUSOL-HC) [address] 1 Suppository rectally as needed for Hemorrhoids. 3 Active LORazepam (ATIVAN) 1 mg tablet Take 1 Tab by mouth 2 times daily as needed for Anxiety (or panic attack). 3 Active mirabegron (Myrbetriq) 25 mg 24 hr tablet Take 1 Tablet by mouth daily. 2 Active zolpidem (AMBIEN) 5 mg tablet 1 Tab at bedtime as needed. 4 Active diclofenac (VOLTAREN) 1 % topical gel Apply 4 g topically 2 (two) times a day. 1 each 1 4 Active metFORMIN XR (GLUCOPHAGE-XR) 500 mg 24 hr tablet Take 1 tablet (500 mg total) by mouth 2 (two) times a day with meals. Do not crush, chew, or split. 180 each 1 5 Active triamcinolone (KENALOG) 0.1 % cream Apply 1 Applicator topically 2 times daily. 3 025 Discontin ued(Expir ed) Active Problems Problem Noted Date Diagnosed Date Type 2 diabetes mellitus wit h diabetic microalbuminuria, without long-term current use of insulin 05/27/2024 CKD (chronic kidney disease) stage 2, GFR 60-89 ml/min 05/27/2024 Insomnia 06/12/2023 Osteoarthritis of left knee 06/12/2023 Paresthesia 06/12/2023 Fatty liver 05/24/2022 Hemorrhoids 05/24/2022 Type 2 diabetes mellitus wit hout complication, without long-term current use of insulin 05/24/2022 Vitamin D deficiency 01/26/2018 Calcific Achilles tendinitis 11/16/2017 Obesity (BMI 30-39.9) 07/24/2017 Varicose veins of legs 07/24/2017 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 For the entire study, PLMs ~37. [facility] Polysomnogram treatment study. Date 04/14/2019. Wt 230#; [...] ESS 16; patient refused RLS symptom screening. Last Assessment & Plan: Patient compliance is excellent Patient has some symptoms of hypersomnolence and insomnia but the AHI on the compliance report is only 2 Advised regarding good health sleep appetite Patient meets DME requirements Return to clinic in 1 year Abnormal MRI scan, head 10/01/2012 Overview (02/09/2024): White matter changes. Followed by Neuro Microalbuminuria 03/02/2012 Overview (02/09/2024): ~ 250mg. (2011): JAIME,ANCA, PADMINI negative. On lisinopril. No hx HTN Spondylolisthesis 03/02/2012 Overview (02/09/2024): L4-L5 MRI 07/2016 Anxiety and depression 12/13/2011 Seropositive rheumatoid arthritis 09/22/2011 Overview (02/09/2024): Given penicillin prophylaxis for acute rheumatic fever until age 12 Onset 2001.RFpositive On Enbrel since 2003 Thyroid nodule 09/22/2011 Overview (02/09/2024): FNA 11/29; Ct's thyroid; FNA 11/30 BENIGN Encounters Date Type Department Care Team Description 05/28/2024 8:00 AM EDT Office Visit Adult Medicine [address] [phone] Nitesh Fitzpatrick MD Type 2 diabetes mellitus with diabetic microalbuminuria, without long-term current use of insulin ([facility]) (Primary Dx); CKD (chronic kidney disease) stage 2, GFR 60-89 ml/min; Seropositive rheumatoid arthritis ([facility]); Thyroid nodule; Fatty liver; ROLY on CPAP; Anxiety and depression; Insomnia, unspecified type; Encounter for screening mammogram for malignant neoplasm of breast; Encounter for osteoporosis screening in asymptomatic postmenopausal patient 05/02/2024 11:00 AM EST Treatment [address] [phone] Jamey Ma, DESKTOP OPERATOR Osteoarthritis of left knee, unspecified osteoarthritis type (Primary Dx) 04/23/2024 11:00 AM EST Treatment [address] [phone] Jamey Ma, DESKTOP OPERATOR Osteoarthritis of left knee, unspecified osteoarthritis type (Primary Dx) 04/11/2024 11:15 AM EST Evaluation [address] [phone] Darell Lubin, PT Osteoarthritis of left knee, unspecified osteoarthritis type; Acute pain of left knee from Last 3 Months Immunizations Name Administration Dates Next Due Influenza Quadravalent, MDCK , 0.5ml, preservative free (Flucelvax) 6mo and older 01/22/2020,02/07/2019 Influenza Quadravalent, MDCK , 0.5ml, with preservative (Flucelvax) 6mo and older 02/06/2017 Influenza trivalent, 0.5mL (Fluad) 65yo and olde r 02/27/2018 Influenza trivalent, 0.5mL, preservative free (Fluarix; FluLaval; Fluzone) ages 6mo and older (Afluria) 3 years and older 01/04/2013,11/22/2011 PPD Test 12/08/2014,12/12/2011 Pneumococcal conjugate 20 va lent (Prevnar 20, PCV 20) 2mo and older 01/09/2023 Tdap Tetanus diptheria acell ular pertussis (Boostrix; Adacel) 7yo and older 09/05/2022,05/01/2012 Surgical History Surgery Date Site/Laterality Comments HYSTERECTOMY 1991 PROCEDURE: HISTORICAL HYSTERECTOMY; COMMENT: Unilateral SPO CHOLECYSTECTOMY PROCEDURE: HISTORICAL CHOLECYSTECTOMY COLONOSCOPY 12/20/2011 PROCEDURE: [facility] COLONOSCOPY FLX DX W/COLLJ SPEC WHEN PFRMD; COMMENT: normal SECTION x3 PROCEDURE: HISTORICAL NECK SURGERY 01/15/13 PROCEDURE: HISTORICAL NECK SURGERY; COMMENT: ACDF C5-6, C6-7 Dr. Lisa Jasso at [facility] ESOPHAGOGASTRODUODENOSCOPY 09/26/2016 PROCEDURE: [facility] EGD TRANSORAL BIOPSY SINGLE/MULTIPLE; COMMENT: mild gastritis, reflux esophagitis; no H. 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 Followed by Neuro Depression 12/13/2011 DX:Depression Family history of breast can cer in mother 01/06/2012 DX:Family history of breast cancer in mother ROLY (obstructive sleep apnea) 08/06/2013 DX :ROLY (obstructive sleep apnea); COMMENT: CPAP Phlegm in throat 12/13/2016 DX:Phlegm in th roat Proteinuria 03/02/2012 DX:Proteinuria; COMMENT: - 250mg. (2011): JAIME,ANCA, PADMINI negative. On lisinopril. No hx HTN Psoriasis 07/20/2016 DX:Psoriasis; CO MMENT: Psoriasis 08/03 back; left lower Seropositive rheumatoid arth ritis (CMS/HCC) 09/22/2011 DX:Seropositive rheumatoid arthritis (HCC); COMMENT: Given penicillin prophylaxis for acute rheumatic fever until age 12 Onset 2001.RFpositive On Enbrel since 2004 Ct's thyroiditis 04/11/2018 DX:Luz moriah's thyroiditis; COMMENT: biopsy 11/2011 Family History Medical History Relation Name Comments Throat cancer Brother 1 Lung Prostate cancer Brother 2 Other: other cancer Brother 3 non-hodg kins; Lung Cancer Leukemia Father <50 Breast cancer Mother at 74 Breast cancer Other 1 first cousin o n mother side 2 primary breast at 48 Other: thyroid cancer Other 2 first cousin once removed Colon cancer Sister adenocarcinoma Relation Name Status Comments Brother 1 Brother 2 Brother 3 Father Mother Other 1 Other 2 Sister Social History Tobacco Use Types Packs/Day Years [...] care for your loved ones. For example, early childhood specialist or elderly care for an older adult? [...] on file Sexual Orientation Not on file Obstetrics History Last Filed Vital Signs Vital Sign Reading Time Taken Comments Blood Pressure 138/76 05/28/2024 7:57 AM EDT Pulse 93 05/28/2024 7:57 AM EDT Temperature 36.6 ??C (97.8 ??F) 05/28/2024 7:57 AM ED T Respiratory Rate 14 05/28/2024 7:57 AM EDT Oxygen Saturation 97% 02/13/2024 8:25 AM EST Inhaled Oxygen Concentration - - Weight 108 kg (238 lb) 05/28/2024 7:57 AM EDT Height 162.6 cm (5' 4 ) 02/13/2024 8:25 AM EST Body Mass Index 40.85 02/13/2024 8:25 AM EST Plan of Treatment Upcoming Encounters Date Type Department Care Team (Late st Contact Info) Description 06/05/2024 8:40 AM EDT Consult Gastroenterology - [place] [facility] 175 [facility] [address] [place] [phone] Zenaida Chambers NP 175 [facility] [address] [place] [address] 09/27/2024 9:00 AM EDT Office Visit Adult Medicine [address] [phone] Nitesh Fitzpatrick MD [address] [place] [phone] Health Maintenance Due Date Last Done Comments Breast Cancer Screening 1960 Diabetes: Annual Foot Exam 05/24/1969 Diabetes: Annual Retina Eye Exam 05/24/1969 Zoster Vaccines (1 of 2) 05/24/2009 RSV Immunization Patients 60+ Years Old (1 - Risk 60-74 years 1-dose series) 2019 COVID-19 Vaccine (3 - Pfizer risk series) 10/26/2020 09/28/2020, 08/31/2020 Medicare Annual Wellness Visit 02/26/2022 Osteoporosis Screening (Bone Density Screening) 02/26/2022 Influenza Vaccine (#1) 2023 , 02/07/2019, 02/27/2018, Additional history exists Diabetes: Annual Urine Albumin-Creatinine Ratio (uACR) 02/01/2024 01/31/2023 Diabetes: Annual GFR (Glomerular Filtration Rate) 06/11/2024 06/12/2023 Diabetes: Blood Sugar Control Test (HGBA1C) 10/03/2024 04/05/2024, 04/05/2024, 06/12/2023, Additional history exists Depression Screening 05/24/2025 05/24/2024 Social Influencers of Health Screening 05/24/2025 05/24/2024 Falls Risk Assessment 05/28/2025 05/28/2024 Cholesterol Screening (Lipid Panel) 04/05/2029 04/05/2024, 06/12/2023 DTaP,Tdap,and Td Vaccines (3 - Td or Tdap) 09/05/2032 09/05/2022, 05/01/2012 Colorectal Cancer Screening: Colonoscopy 12/15/2032 12/15/2022 Hepatitis C Screening Completed 09/11/2012 Pneumococcal Vaccine: 50+ Years Completed 01/09/2023 Pneumococcal Vaccine: Pediatrics (0 to 5 Years) and At-Risk Patients (6 to 64 Years) Completed 01/09/2023 HIB Vaccines Aged Out No longer eligi ble based on patient's age to complete this topic HPV Vaccines Aged Out No longer eligi ble based on patient's age to complete this topic Hepatitis A Vaccines Aged Out No long er eligible based on patient's age to complete this topic Hepatitis B Vaccines Aged Out No long er eligible based on patient's age to complete this topic IPV Vaccines Aged Out No longer eligi ble based on patient's age to complete this topic MMR Vaccines Aged Out No longer eligi ble based on patient's age to complete this topic Meningococcal ACWY Vaccine Aged Out N o longer eligible based on patient's age to complete this topic Meningococcal B Vacine Aged Out No lo nger eligible based on patient's age to complete this topic RSV Immunization Patients Under 20 months Aged Out No longer eligible based on patient's age to complete this topic Varicella Vaccines Aged Out No longer eligible based on patient's age to complete this topic Goals Goal Patient Goal Type Associated Problems Recent Progress Patient-Stated? Author PT LTGs General Yes Darell Lubin, PT Note: Pt will complete 6 minute walk with no left knee pain Pt will present with negative valgus stress test on Left knee Pt will be independent with HEP Procedures Procedure Name Priority Date/Time Associated Diagnosis Comments ANNUAL BMP BLOOD TEST Routine 06/12/2023 HEMOGLOBIN A1C Routine 06/12/2023 LIPID PANEL Routine 06/12/2023 URINE ALBUMIN CREATININE RATIO Routine 01/31/2023 COLONOSCOPY Routine 12/15/2022 HEPATITIS C SCREENING Routine 09/11/2012 from Last 3 Months or Most Recently Relevant to Health Maintenance Results * Annual BMP Blood Test (06/12/2023) Annual BMP Blood Test Abstracted us Historical Provider HEALTH MAINTENANCE Final Result * (ABNORMAL) Lipid panel (06/12/2023) LDL/HDL Ratio 3 0 - 4 Triglycerides 138 0 - 150 mg/dL Cholesterol 204(A) 0 - 200 mg/dL HDL 63 >=40 mg/dL LDL Cholesterol 114(A) 0 - 100 mg/dL Blood Venous blood specimen / Unknown Historical Provider LAB BLOOD ORDERABLES Kristel l Result * Urine Albumin Creatinine Ratio (01/31/2023) Urine Albumin Creatinine Ratio Abstracted [facility] Provider HEALTH MAINTENANCE Final Result * Colonoscopy (12/15/2022) Pathologist [facility] Colonoscopy No Interpretation , Abstracted Anatomical Region Laterality Modality Other Historical Provider HEALTH MAINTENANCE Final Result * Hepatitis C Screening (09/11/2012) Pathologist [facility] Hepatitis C Screening Abstracted Result [facility] Provider HEALTH MAINTENANCE Final Result from Last 3 Months or Most Recently Relevant to Health Maintenance Insurance [facility] [place] MEDICARE Member Subscriber Plan / Payer (Ef fective 2018-Present) Name:Lina Kauffman Relation to Subscriber:Self Name:Lina Kauffman Payer ID:[id number] Group ID:[id number] Type:Not on file Address: [place] [address] [address] [phone] Care Teams Deputy Bailiff Relationship Specialty Start Date End Date Nitesh Fitzpatrick MD [address] [place] [address] PCP - General Internal Medicine 06/29/21
[2024-05-31 15:09] LABS: Erythrocyte Sedimentation Rate 11 MM/HR (0-20)
== END 2024-05-31 13:23 | disposition home or self-care (01) ==
LOC: HO.LAB 13:22
PROVIDERS: PCP Student in an Organized Health Care Education/Training Program; Visit Provider Student in an Organized Health Care Education/Training Program
DX: M05.9 Rheumatoid arthritis with rheumatoid factor, unspecified (principal)
CPT/HCPCS: 36415; 80053; 85025; 85652; 86140

== ENCOUNTER 2024-06-05 10:40 | Outpatient (AMB) | payer MEDICARE, SELFPAY ==
--- NOTE | 2024-06-05 10:45 | MHC.OFFVIS ---
Vital Signs 06/05/24 10:55 Height 5 ft 4 in Weight 238 lb 8.642 oz BMI 40.9 BP 124/70 Blood Pressure Location Lt brachial Position Sitting Pulse 85 Pulse Source Pulse Oximeter Pulse Oximetry (%) 95 Oxygen Delivery Method Room Air Intake Visit Reasons: RA/ discuss medication Intake Note: Patient presents for RA and to discuss medication. Allergies lisinopril Allergy (Unknown, Verified 06/05/24 10:53) cough morphine Allergy (Unknown, Verified 06/05/24 10:53) palpitations Medication List - Last Reconciled 06/05/24 by Deirdre Chávez MD cetirizine 10 mg PO DAILY cholecalciferol (vitamin D3) 25 mcg PO DAILY cyanocobalamin (vitamin B-12) 1,000 mcg PO DAILY cyclosporine 0.05% (Restasis MultiDose) drps ophthalmic (eye) diclofenac sodium 1% 1 - 2 grams topical QID duloxetine 20 mg PO BID etanercept (Enbrel SureClick) 50 mg subcut QWEEK lorazepam 0.5 mg PO DAILY PRN losartan 12.5 mg PO DAILY meloxicam 15 mg PO DAILY PRN metformin 500 mg PO QAM mirabegron ER (Myrbetriq) 25 mg PO DAILY jlnqgzxs-btxdud-JM-thonzonium 3.3-3-10-0.5 mg/mL (Cortisporin-TC) 4 drps otic (ear) left TID oxybutynin chloride ER 15 mg PO DAILY zolpidem 5 mg PO BEDTIME HPI Comments Details: Patient is a 64-year-old female with hypertension, type 2 diabetes, depression, GERD, psoriasis and seropositive rheumatoid arthritis here today for follow up Interval History: Patient last seen 03/04/[address] Ribera. At she was on Enbrel 50 mg weekly and Prednisone. During that visit her evaluation was consistent with moderate to severely active rheumatoid arthritis her DMARD was changed from Enbrel to Actemra. But there was likely some communication error and the medication was not changed. She continues on Enbrel Today, Patient continues on Enbrel Complaining of bilateral wrist pain, left knee pain and bilateral AC joints Rheumatologic History: Seropositive rheumatoid arthritis Given penicillin prophylaxis for acute rheumatic fever until age 12(in [place]) Onset RA 2001. ++RF+++CCP On Enbrel since 2003 effective. Was on Humira for short period of time, was not effective Current Rheumatology Medication(s): Enbrel 50mg SC weekly Meloxicam 15mg prn PFSH Family History (Updated 06/05/24 @ 10:55 by PAOLA Singh) Daughter Liver disease Social History Household Members Other:: lives alone Housing: Apartment Are you a primary resident care manager to a significant other at home: No Do you presently have visiting nurse or other home services: No 75 years or older and lives alone: No Alcohol intake: never Patient Tobacco Use Status: Never used Tobacco e-Cigarette/Vaping Use: Never Used service: No Current occupational status: disabled Review of Systems Const Details: Review of Systems Constitutional: Denies fever, chills, weight loss ENT: Denies vision changes, eye pain or eye redness, dental caries, dry mouth GI: Denies nausea, vomiting, diarrhea, abdominal pain, change in BM Pulm: Denies SOB, VEGA, hemoptysis, wheezing Cards: Denies chest pain, palpitations Skin: Denies Raynaud's, rash, nail changes, photosensitivity, 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 Well appearing and in no apparent painful distress HEENT Conjunctiva and sclera clear. ?Pupils equal round and reactive to light. ?No lymphadenopathy. ? CHEST/RESPIRATORY SYSTEM Normal respiratory effort and able to speak in complete sentences. ?Clear to auscultation bilaterally. ?No crackles, rales, rhonchi, wheezes heard. CARDIAC SYSTEM Regular rate and rhythm. ?S1 and S2 heard no murmurs. ?Radial pulses intact bilaterally MSK Hands: ?Good gospel worker strength bilaterally. No deformities noted. ?No synovitis noted to the MCPs, PIPs or DIPs. ?No tenderness to palpation of these joints. Wrists: ?Full range of motion at the wrists. Bilateral fullness and TTP of the wrists Elbows: Full range of motion without pain. No tenderness, weakness, swelling, increased warmth or erythema. Shoulders: Full range of motion. TTP of bilateral AC joints Hips: Full range of motion without pain. Hip bursa: No tenderness to palpation Knees: ?Full range of motion. ?No tenderness, swelling, increased warmth or erythema.?Bilateral crepitations Ankles: Full range of motion. ?No tenderness, swelling, increased warmth or erythema.? LE tense pitting edema with hyperpigmentation of the gaiter region bilaterally Feet: ?Negative squeeze test. ?No tenderness to palpation or swelling of the MTPs. Tender points:?No tenderness to palpation of the bilateral trapezius, supraspinatus, greater trochanters, anterior costochondral junctions, bilateral gluteal areas, bilateral suboccipital muscle insertions SKIN Skin intact without rashes. Office Procedures AMB Joint Injection/Aspiration Joint Injection/Aspiration Details: Procedure was explained to the patient and consent was obtained. ? The area of interest was identified and confirmed with patient. ?This was subsequently cleaned with chlorhexidine x3. ? The area was then anesthetized using ethyl chloride spray. ? Blood was seen in the syringe on aspiration and so the initial procedure was aborted and pressure was applied to the area. A separate area was identified and it was re sterilzed and re anesthetized. No blood seen on aspiration and 40 mg Kenalog with 1 cc 1% lidocaine was injected without issue. Primary Site: right shoulder Prep: site was prepped using aseptic technique and ethochloride spray was applied Injected: 40 mg of, Kenalog, with 1 mL of and 1% plain lidocaine Procedure: The patient tolerated the procedure well, but had some pain with the injection and other (as noted above) Coding 11469 - Acromioclavicular Procedure code (CPT) selection complete AMB Joint Injection/Aspiration Joint Injection/Aspiration Details: Procedure was explained to the patient and consent was obtained. ? The area of interest was identified and confirmed with patient. ?This was subsequently cleaned with chlorhexidine x3. ? The area was then anesthetized using ethyl chloride spray. 40 mg Kenalog with 1 cc 1% lidocaine was injected without issue. ?Minimal to no bleeding. ?Patient tolerated procedure. Primary Site: left shoulder Prep: site was prepped using aseptic technique and ethochloride spray was applied Injected: 40 mg of, Kenalog, with 1 mL of and 1% plain lidocaine Coding 92279 - Acromioclavicular Procedure code (CPT) selection complete Office Meds lidocaine (PF) 10 mg/mL (1 %) injection solution Performing Provider: Deirdre Chávez MD Performing Location: [facility] Rheumatology Administered by: Deirdre Chávez MD on 06/05/24 12:49 Dose Route Admin Location Dispensed Lot Number Expiration Date [facility] [employer] 1 mL Infiltration right AC joint 2 mL [id number] 06/18/26 80167-459-55 [employer] Kenalog 40 mg/mL suspension for injection Performing Provider: Deirdre Chávez MD Performing Location: [facility] Rheumatology Administered by: Deirdre Chávez MD on 06/05/24 12:49 Dose Route Admin Location Dispensed Lot Number Expiration Date [facility] [employer] 40 mg intra-articular right AC joint 1 mL [id number] 09/17/25 [address]-0 [employer] lidocaine (PF) 10 mg/mL (1 %) injection solution Performing Provider: Deirdre Chávez MD Performing Location: [facility] Rheumatology Administered by: Deirdre Chávez MD on 06/05/24 12:49 Dose Route Admin Location Dispensed Lot Number Expiration Date [facility] [employer] 1 mL Infiltration left shoulder 2 mL [id number] 06/18/26 62395-595-72 [employer] Kenalog 40 mg/mL suspension for injection Performing Provider: Deirdre Chávez MD Performing Location: [facility] Rheumatology Administered by: Deirdre Chávez MD on 06/05/24 12:49 Dose Route Admin Location Dispensed Lot Number Expiration Date [facility] [employer] 40 mg intra-articular left shoulder 1 mL [id number] 09/17/25 [address]-5 [employer] Results Reviewed Results Reviewed: Laboratory Tests 05/31/24 13:33 WBC 5.0 RBC 4.67 Hgb 13.0 Hct 39.1 Plt Count 222 ESR 11 Sodium 141 Potassium 4.3 Chloride 109 H Carbon Dioxide 28 BUN 21 H Creatinine 0.77 Calcium 8.6 D Total Bilirubin 0.3 AST 22 ALT 26 Alkaline Phosphatase 81 C-Reactive Protein 0.44 Total Protein 7.1 Albumin 3.4 L Infectious serologies 01/03/24 09:40 Hepatitis A IgM Ab Nonreactive Hep Bs Antigen Negative Hep Bs Antibody NONREACTIVE Hep B Core Total Ab Nonreactive Hepatitis C Ab (EIA) Nonreactive TB Test (T-Spot) Com Negative Assessment & Plan Assessment & Plan (1) Seropositive rheumatoid arthritis: Comment: Given penicillin prophylaxis for acute rheumatic fever until age 12(in [place]) Onset RA 2001. ++RF+++CCP On Enbrel since 2003 effective. Was on Humira for short period of time, was not effective Code(s): M05.9 - Rheumatoid arthritis with rheumatoid factor, unspecified Category: Medical Plan: #Seropositive RA Patient is a 64-year-old female with seropositive rheumatoid arthritis currently on Enbrel. Due to some issues the patient was not changed from Enbrel to Actemra and she remained on Enbrel. Overall her exam today shows some active synovitis in the bilateral wrists otherwise her other joint complaints including her AC joints and her left knee seem to be more related to osteoarthritis than active rheumatoid arthritis. Her blood work also is showing normal ESR and CRP which is improved from previous visits. This time I think that the Enbrel is actually doing a good job for the patient and that she may need just a little extra something to help. I will add Plaquenil to her medication regimen. Plan - Start Plaquenil 200 mg p.o. b.i.d. - Continue Enbrel 50 mg weekly SC - RTC 4 months - Labs before visit: CBC, CMP, ESR, CRP, hepatitis panel, T spot (2) Generalized osteoarthritis: Code(s): M15.9 - Polyosteoarthritis, unspecified Plan: #Generalized OA Patient complaining of pain to her wrists, base of her bilateral thumbs, bilateral AC joints and left knee. The hands, AC joints and knees seem to be related to osteoarthritic changes more than rheumatoid arthritis. Did give her bilateral AC injections today. And we will check x-rays of her hands, wrists, shoulders and knees. She currently takes meloxicam 15 mg p.o. daily which she can continue for now. If there is worsening of her knees we can pursue steroid injections for the knees in the future and/or gel injections. Plan - Check XR hands, wrists, knees and shoulders - S/p bilateral AC joint steroid injection (3) Encounter for monitoring of etanercept therapy: Code(s): Z51.81 - Encounter for therapeutic drug level monitoring; Z79.620 - adjunct faculty for medical terminology (current) use of immunosuppressive biologic Plan: #Long-term Use of TNF Inhibitors: Etanercept Discussed with the patient the benefits and risks of TNF inhibitors for the management of the rheumatic condition Benefits include reduce pain, maintenance of remission and reduction of flares as well as ?progression of the disease Risks include injection sites/infusion reactions, serious infections (such as bacterial infections, opportunistic infections), malignancy, delaminating syndromes, autoimmune phenomena, CHF exacerbations, palmar plantar psoriasis and cytopenias Recommended rotating injection sites, and holding medication during and for up to 1 week after resolution of a febrile illness or open skin wound (4) Encounter for monitoring of hydroxychloroquine therapy: Code(s): Z51.81 - Encounter for therapeutic drug level monitoring; Z79.899 - Other prison (current) drug therapy Plan: #Long-term Use of Hydroxychloroquine Discussed with patient the risks and benefits of hydroxychloroquine in managing the rheumatic condition Benefits include: - Reduced pain, reduce mortality, maintenance of remission and reduction of flares Risks include: - GI upset, skin hyperpigmentation, retinal toxicity (especially after more than 5 years of use), myopathy Advised yearly ophthalmology visits Plan I spent 36 minutes reviewing the record and labs, taking a history, examining the patient, discussing the treatment plan, ordering diagnostic work up and documenting in the medical record Orders: Orders Complete Blood Count Auto Diff 4 Months M05.9 - Rheumatoid arthritis with rheumatoid factor, unspecified, Z51.81 - Encounter for therapeutic drug level monitoring, Z79.620 - half-way (current) use of immunosuppressive biologic, Z79.899 - Other exterminator helper termite (current) drug therapy Comprehensive Met. Panel 4 Months M05.9 - Rheumatoid arthritis with rheumatoid factor, unspecified, Z51.81 - Encounter for therapeutic drug level monitoring, Z79.620 - adjunct faculty for medical terminology (current) use of immunosuppressive biologic, Z79.899 - Other prison (current) drug therapy Erythrocyte Sedimentation Rate 4 Months M05.9 - Rheumatoid arthritis with rheumatoid factor, unspecified, Z51.81 - Encounter for therapeutic drug level monitoring, Z79.620 - half-way (current) use of immunosuppressive biologic, Z79.899 - Other prison (current) drug therapy Hepatitis A,B,C Profile 4 Months M05.9 - Rheumatoid arthritis with rheumatoid factor, unspecified, Z51.81 - Encounter for therapeutic drug level monitoring, Z79.620 - half-way (current) use of immunosuppressive biologic, Z79.899 - Other prison (current) drug therapy XR hand LT min 3V Today M05.9 - Rheumatoid arthritis with rheumatoid factor, unspecified, Z51.81 - Encounter for therapeutic drug level monitoring, Z79.620 - half-way (current) use of immunosuppressive biologic, Z79.899 - Other exterminator helper termite (current) drug therapy XR hand RT min 3V Today M05.9 - Rheumatoid arthritis with rheumatoid factor, unspecified, Z51.81 - Encounter for therapeutic drug level monitoring, Z79.620 - adjunct faculty for medical terminology (current) use of immunosuppressive biologic, Z79.899 - Other prison (current) drug therapy XR wrist RT min 3V Today M05.9 - Rheumatoid arthritis with rheumatoid factor, unspecified, Z51.81 - Encounter for therapeutic drug level monitoring, Z79.620 - adjunct faculty for medical terminology (current) use of immunosuppressive biologic, Z79.899 - Other prison (current) drug therapy XR knee RT 3V Today M05.9 - Rheumatoid arthritis with rheumatoid factor, unspecified, Z51.81 - Encounter for therapeutic drug level monitoring, Z79.620 - adjunct faculty for medical terminology (current) use of immunosuppressive biologic, Z79.899 - Other exterminator helper termite (current) drug therapy XR shoulder RT min 2V Today M05.9 - Rheumatoid arthritis with rheumatoid factor, unspecified, Z51.81 - Encounter for therapeutic drug level monitoring, Z79.620 - adjunct faculty for medical terminology (current) use of immunosuppressive biologic, Z79.899 - Other exterminator helper termite (current) drug therapy XR shoulder LT min 2V Today M05.9 - Rheumatoid arthritis with rheumatoid factor, unspecified, Z51.81 - Encounter for therapeutic drug level monitoring, Z79.620 - half-way (current) use of immunosuppressive biologic, Z79.899 - Other prison (current) drug therapy C Reactive Protein 4 Months M05.9 - Rheumatoid arthritis with rheumatoid factor, unspecified, Z51.81 - Encounter for therapeutic drug level monitoring, Z79.620 - adjunct faculty for medical terminology (current) use of immunosuppressive biologic, Z79.899 - Other prison (current) drug therapy T Spot TB 4 Months M05.9 - Rheumatoid arthritis with rheumatoid factor, unspecified, Z51.81 - Encounter for therapeutic drug level monitoring, Z79.620 - adjunct faculty for medical terminology (current) use of immunosuppressive biologic, Z79.899 - Other prison (current) drug therapy XR knee LT 3V Today M05.9 - Rheumatoid arthritis with rheumatoid factor, unspecified, Z51.81 - Encounter for therapeutic drug level monitoring, Z79.620 - adjunct faculty for medical terminology (current) use of immunosuppressive biologic, Z79.899 - Other exterminator helper termite (current) drug therapy XR wrist LT min 3V Today M05.9 - Rheumatoid arthritis with rheumatoid factor, unspecified, Z51.81 - Encounter for therapeutic drug level monitoring, Z79.620 - adjunct faculty for medical terminology (current) use of immunosuppressive biologic, Z79.899 - Other prison (current) drug therapy AMB Joint Injection/Aspiration Today M19.011 - Primary osteoarthritis, right shoulder, M19.012 - Primary osteoarthritis, left shoulder AMB Joint Injection/Aspiration Today M19.011 - Primary osteoarthritis, right shoulder, M19.012 - Primary osteoarthritis, left shoulder Medications: New hydroxychloroquine (Plaquenil) 200 mg PO BID 90 tabs 1RF M05.9 - Rheumatoid arthritis with rheumatoid factor, unspecified Refilled meloxicam 15 mg PO DAILY PRN 30 tabs 4RF rheuma art M05.9 - Rheumatoid arthritis with rheumatoid factor, unspecified Coding Level of Care Code Est Pt Level 4 (19962) Complex EM visit Add On G2211 Diagnoses Seropositive rheumatoid arthritis M05.9 Generalized osteoarthritis M15.9 Encounter for monitoring of etanercept therapy Z51.81; Z79.620 Encounter for monitoring of hydroxychloroquine therapy Z51.81; Z79.899 CPT Codes Coding - Joint 5: 92911 - Acromioclavicular ([id number]) Coding - Joint 5: 58793 - Acromioclavicular ([id number])
[2024-06-05 10:55] VITALS: BP 124/70; PULSE 85; O2SAT 95; BMI 40.9
--- OUTSIDE RECORDS SUMMARY | 2024-06-05 12:41 | XMS_ITS | Encounter Summary ---
Author Organization [facility] Address [address] [place] [address] Phone Care Team Providers Care Manager Inventory Management Name Role Phone Bettina Aguiar MD Primary Care Provider [phone] Encounter Details Date Type Department Care Team (Late Contact Info) Description 02/17/2022 Documentation Only [facility] [address] [place] [address] Tish Miguel PA Social History [...] Visit [facility] [address] [place] [address] Stef Wright MD [address] [place] [address] [place] [id number] documented as of this encounter Visit Diagnoses Not on filedocumented in this encounter Care Teams Manager Inventory Management Relationship Specialty Start Date End Date Bettina Aguiar MD PCP - General 11/5/19 documented as of this encounter
--- OUTSIDE RECORDS SUMMARY | 2024-06-05 12:41 | XMS_ITS | Encounter Summary ---
Author Organization [facility] Address [address] [place] [address] Care Team Providers Care Operator/Assistant Foreman Name Role Phone Nitesh Fitzpatrick MD Primary Care Provider [phone] Reason for Referral * Imaging (Routine) - Authorized Specialty Diagnoses / Procedures Referred By Contac t Referred To Contact Radiology Diagnoses Fatty liver Morbid obesity with BMI of 40.0-44.9, adult (CMS/HCC) Procedures US Abdomen Complete Zenaida Chambers NP [address] [address] Phone: tel: fax: Radiology Department [address] [address] Phone: tel: fax: Referral ID Status Reason Start Date Expiration Date V isits Requested Visits Authorized [id number] Authorized 06/05/2024 06/05/2025 1 1 * Consultation (Routine) - Pending Review Specialty Diagnoses / Procedures Referred By Contac t Referred To Contact Family [facility] Services Diagnoses Fatty liver Morbid obesity with BMI of 40.0-44.9, adult (CMS/HCC) Zenaida Chambers NP [address] [address] Phone: tel: fax: Referral ID Status Reason Start Date Expiration Date Visits Requested Visits Authorized [id number] Pending Review Specialty Services Required 06/05/2024 06/05/2025 1 1 Reason for Visit * Reason Comments Fatty Liver CKD Encounter Details Date Type Department Care Team (Late st Contact Info) Description 06/05/2024 8:40 AM EDT Consult Gastroenterology - [place] [address] [place] [address] [place] [address] Zenaida Chambers NP [address] [place] [address] Fatty liver (Primary Dx); Morbid obesity with BMI of 40.0-44.9, adult (CMS/HCC) Social History Tobacco Use Types Packs/Day Years [...] care for your loved ones. For example, child care centre director or elderly care for an older adult? [...] Sign Reading Time Taken Comments Blood Pressure 125/75 06/05/2024 8:36 AM EDT Pulse 97 06/05/2024 8:36 AM EDT Temperature - - Respiratory Rate - - Oxygen Saturation 96% 06/05/2024 8:36 AM EDT Inhaled Oxygen Concentration - - Weight 108 kg (238 lb) 06/05/2024 8:36 AM EDT Height 162.6 cm (5' 4 ) 06/05/2024 8:36 AM EDT Body Mass Index 40.85 06/05/2024 8:36 AM EDT documented in this encounter Progress Notes * Zenaida Chambers NP - 06/05/2024 8:40 AM EDT CONSULT REQUEST CHIEF COMPLAINT: Fatty liver HPI: Lina Stevenson is a 64 y.o. old female whose PMH includes abnormal MRI scan of head, anxiety and depression, calcific Achilles tendinitis, GERD, hemangioma of choroid, hemorrhoids, insomnia, migraine diarrhea, obesity, obstructive sleep apnea on CPAP, osteoarthritis of left knee, paresthesia, psoriasis, seropositive rheumatoid arthritis, stress incontinence, thyroid nodule, type 2 diabetes me llitus, varicose veins of legs, vitamin D deficiency and chronic kidney disease stage II was referred to the gastroenterology department today for evaluation of fatty liver. Patient reports she has a history of fatty liver confirmed by ultrasound in 2021. She is particularly concerned because her family has a history of cirrhosis. Her brother passed from liver cirrhosis while on a transplant wait list. She denies alcohol use. She reports occasional right upper quadrant discomfort. She is asymptomatic. She denies fever or malaise, nausea, vomiting, dysphagia, odynophagia, regurgitation, hematemesis, loss of appetite, unintentional weight loss, abdominal pain, changein bowel habits, melena or hematochezia. She denies jaundice or icterus. She denies alcohol, tobacco or marijuana use. No known family history of gastrointestinal cancer. ROS: GENERAL: No malaise, significant weight loss or fever HEENT: No changes in hearing or vision, nose bleeds or swallowing problems NECK: No lumps, goiter, pain or significant neck swelling RESPIRATORY: No cough, wheezing or shortness of breath CARDIOVASCULAR: No chest pain GI: See HPI MUSCULOSKELETAL: Chronic back pain SKIN: No lesions, rash or itching PAST MEDICAL HISTORY: Patient Active Problem List Diagnosis Abnormal MRI scan, head Anxiety and depression Calcific Achilles tendinitis Esophageal reflux Fatty liver Hemangioma of choroid Hemorrhoids Insomnia Microalbuminuria Obesity (BMI 30-39.9) ROLY on CPAP Osteoarthritis of left knee Paresthesia Psoriasis Seropositive rheumatoid arthritis (CMS/HCC) Spondylolisthesis Stress incontinence Thyroid nodule Type 2 diabetes mellitus without complication, without long-term current use of insulin (CMS/HCC) Varicose veins of legs Vitamin D deficiency Type 2 diabetes mellitus with diabetic microalbuminuria, without long-term current use of insulin (CMS/HCC) CKD (chronic kidney disease) stage 2, GFR 60-89 ml/min PAST SURGICAL HISTORY: Past Surgical History: Procedure Laterality Date SECTION x3 PROCEDURE: HISTORICAL CHOLECYSTECTOMY PROCEDURE: HISTORICAL CHOLECYSTECTOMY COLONOSCOPY 12/20/2011 PROCEDURE: [place] COLONOSCOPY FLX DX W/COLLJ SPEC WHEN PFRMD; COMMENT: normal ESOPHAGOGASTRODUODENOSCOPY 09/26/2016 PROCEDURE: [place] EGD TRANSORAL BIOPSY SINGLE/MULTIPLE; COMMENT: mild gastritis, reflux esophagitis; noH. pylori or Barretts Esophagus HYSTERECTOMY 1991 PROCEDURE: HISTORICAL HYSTERECTOMY; COMMENT: Unilateral SPO NECK SURGERY 01/15/13 PROCEDURE: HISTORICAL NECK SURGERY; COMMENT: ACDF C5-6, C6-7 Dr. Lisa Jasso at [facility] OTHER SURGICAL HISTORY Left 02/05/2014 PROCEDURE: [place] BX/EXC LYMPH NODE OPEN DEEP AXILLARY NODE; COMMENT: Negative SOCIAL HISTORY: Social History Tobacco Use Smoking status: Never Smokeless tobacco: Never Substance Use Topics Alcohol use: Yes Drug use: No FAMILY HISTORY: Family History Problem Relation Name [...] cancer) Other 17.00 first cousin once removed MEDICATIONS: Outpatient Medications Marked as Taking for the 06/05/24 encounter (Consult) with Zenaida Chambers NP Medication Sig Dispense Refill acetaminophen (TYLENOL) 500 [...] as needed for Anxiety (or panic attack). metFORMIN XR (GLUCOPHAGE-XR) 500 mg 24 hr tablet Take 1 tablet (500 mg total) by mouth 2 (two) times a day with meals. Do not crush, chew, or split. 180 each 1 mirabegron (Myrbetriq) 25 mg 24 hr tablet Take 1 Tablet by mouth daily. miscellaneous medical supply misc CPAP Inhale into the lungs. Life supply pressure 7 zolpidem (AMBIEN) 5 mg tablet 1 Tab at bedtime as needed. ALLERGIES: Allergies Allergen Reactions Lisinopril Cough Morphine Other Gives pt a bad feeling PHYSICAL EXAM: Visit Vitals BP 125/75 Pulse 97 Ht 1.626 m (64 ) Wt 108 kg (238 lb) SpO2 96% BMI 40.85 kg/m?? Smoking Status Never BSA 2.11 m?? APPEARANCE: Alert and in no acute distress EYES: Conjunctiva and sclera normal. MOUTH/THROAT: No erythema, exudates or lesions noted NECK: Neck supple, no adenopathy HEART: RRR with normal S1 and S2 LUNG: Clear to auscultation ABDOMEN: Soft non tender, no ascites, guarding, or rebound. RECTAL: Exam deferred NEURO: Awake, alert and oriented x 3 SKIN: Skin color, texture, turgor normal. LABS: No results found for: WBC , HGB , HCT , MCV , PLT No results found for: ALT , AST , GGT , ALKPHOS , BILITOT IMAGING: No results found for this or any previous visit from the past 365 days. IMPRESSION: 1. Fatty liver 2. Morbid obesity with BMI of 40.0-44.9, adult ([facility]) PLAN: Lina Stevenson is a 64 y.o. old female whose PMH includes abnormal MRI scan of head, anxiety and depression, calcific Achilles tendinitis, GERD, hemangioma of choroid, hemorrhoids, insomnia, migraine diarrhea, obesity, obstructive sleep apnea on CPAP, osteoarthritis of left knee, paresthesia, psoriasis, seropositive rheumatoid arthritis, stress incontinence, thyroid nodule, type 2 diabetes me llitus, varicose veins of legs, vitamin D deficiency and chronic kidney disease stage II who presents for evaluation of fatty liver. 1. Fatty liver: As seen on abdominal ultrasound completed in 2021. No hepatic function on file for review. Lab workordered by PCP pending completion. Patient has truncal obesity. She will benefit from weight loss BMI 40+, and management of metabolicsyndromes including type 2 diabetes mellitus. Other risk factors include obstructive sleep apnea and uses a CPAP. She was reassured. I will order abdominal ultrasound for reported occasional right upper quadrant discomfort. Also, complete hepatitis A and B screening to determine immunity, and FibroSure test. 2. Morbid obesity with BMI 40+: Patient is requesting referral to weight loss management clinic to discuss weight loss. I will refer per patient request. I will update on further care and management depending on labs and imaging findings. Follow-up as needed. Patient agrees with the above plan and understands the need to follow up as indicated. Please note, this note may have been created in part by using Twitch dictation software, and therefore, it may contain typographical and/or grammatical errors inherent in a voice recognition software program Orders Placed This Encounter Procedures US Abdomen Complete Antimitochondrial antibody Hepatitis B screening panel Hepatitis A antibody total with reflex IgM Alpha fetoprotein tumor marker Liver fibrosis, fibrotest-actitest panel Ambulatory referral to Weight Management AMB REFERRAL TO WEIGHT MANAGEMENT US ABDOMEN COMPLETE documented in this encounter Plan of Treatment Upcoming Encounters Date Type Department Care Team (Late st Contact Info) Description 09/27/2024 9:00 AM EDT Office Visit Adult Medicine [address] [address] Nitesh Fitzpatrick MD [address] [place] [id number] Scheduled Orders Name Type Priority Associated Diagnoses Orde r Schedule Antimitochondrial antibody Lab Routine Fatty liver 1 Occurrences starting 06/05/2024 until 06/05/2025 Hepatitis B screening panel Lab Routine Fatty liver 1 Occurrences starting 06/05/2024 until 06/05/2025 Hepatitis A antibody total with reflex IgM Lab Routine Fatty liver 1 Occurrences starting 06/05/2024 until 06/05/2025 Alpha fetoprotein tumor marker Lab Routine Fatty liver 1 Occurrences starting 06/05/2024 until 06/05/2025 Liver fibrosis, fibrotest-actitest panel Lab Routine Fatty liver 1 Occurrences starting 06/05/2024 until 06/05/2025 US Abdomen Complete Imaging Routine Fatty liver Morbid obesity with BMI of 40.0-44.9, adult (CMS/HCC) Expected: 06/05/2024, Expires: 06/05/2025 Scheduled Referrals Name Type Priority Associated Diagnoses Order Schedule Ambulatory referral to Weight Management Outpatient Referral Routine Fatty liver Morbid obesity with BMI of 40.0-44.9, adult (CMS/HCC) 1 Occurrences starting 06/05/2024 until 06/05/2025 documented as of this encounter Goals Goal Patient Goal Type Associated Problems Recent Progress Patient-Stated? Author PT LTGs General Yes Darell Lubin, PT Note: Pt will complete 6 minute walk with no left knee pain Pt will present with negative valgus stress test on Left knee Pt will be independent with HEP documented as of this encounter Visit Diagnoses Diagnosis Fatty liver- Primary Other chronic nonalcoholic liver disease Morbid obesity with BMI of 40.0-44.9, adult (CMS/HCC) documented in this encounter Additional Health Concerns Assessment Noted Time PHQ-9 Depression Total Score: 0 05/25/19 25 1:49 AM EST documented as of this encounter Care Teams Operator/Assistant Foreman Relationship Specialty Start Date End Date Nitesh Fitzpatrick MD [address] [place] [address] PCP - General Internal Medicine 06/29/21 documented as of this encounter
--- OUTSIDE RECORDS SUMMARY | 2024-06-05 12:41 | XMS_ITS | Encounter Summary ---
Author Organization [facility] Address [address] [place] [address] Care Team Providers Care Pastry Supervisor Name Role Phone Nitesh Fitzpatrick MD Primary Care Provider [phone] Reason for Referral * Consultation (Routine) - Authorized Specialty Diagnoses / Procedures Referred By Jamar rehman Referred To Contact Gastroenterology Diagnoses Type 2 diabetes mellitus with diabetic microalbuminuria, without long-term current use of insulin ([facility]) CKD (chronic kidney disease) stage 2, GFR 60-89 ml/min Seropositive rheumatoid arthritis (CMS/[facility]) Thyroid nodule Fatty liver ROLY on CPAP Anxiety and depression Insomnia, unspecified type Nitesh Fitzpatrick MD [address] [place] [address] Phone: tel: fax: Garry Michel MD 175 [facility] [address] [place] [address] Phone: tel: fax: Referral ID Status Reason Start Date Expiration Date Visits Requested Visits Authorized [id number] Authorized Specialty Services Required 05/28/2024 05/28/2025 1 1 * Imaging (Routine) - Authorized Specialty Diagnoses / Procedures Referred By Jamar rehman Referred To Contact Radiology Diagnoses Encounter for osteoporosis screening in asymptomatic postmenopausal patient Procedures BD Bone Density DXA Axial w Vertebral Fx Asmt Nitesh Fitzpatrick MD [address] [place] [address] Phone: tel: fax: [address] Phone: tel: Referral ID Status Reason Start Date Expiration Date V isits Requested Visits Authorized [id number] Authorized 05/28/2024 05/28/2025 1 1 * Imaging (Routine) - Authorized Specialty Diagnoses / Procedures Referred By Contac t Referred To Contact Radiology Diagnoses Encounter for screening mammogram for malignant neoplasm of breast Procedures MG Mammo Digital Screening w Steve bilat Nitesh Fitzpatrick MD [address] [place] [address] Phone: tel: fax: [address] Phone: tel: Referral ID Status Reason Start Date Expiration Date V isits Requested Visits Authorized [id number] Authorized 05/28/2024 05/28/2025 1 1 Reason for Visit * Reason Comments Follow-up Encounter Details Date Type Department Care Team (Late st Contact Info) Description 05/28/2024 8:00 AM EDT Office Visit Adult Medicine [address] [phone] Nitesh Fitzpatrick MD [address] [place] [id number] Type 2 diabetes mellitus with diabetic microalbuminuria, [...] for your loved ones. For example, child study team director or elderly care for an older [...] and I will refer her to the binder stripper hand. I recommended her to avoid alcohol drinking, stay on low calorie, low-fat diet to lose weight. She is compliant with meds and blood sugars are under control. She follows with family development specialist and she cheli Enbrel and joint pains [...] microalbuminuria, without long-term current use of insulin ([facility]) 05/27/2024 CKD (chronic kidney disease) stage 2, GFR 60-89 ml/min 05/27/2024 Insomnia 06/12/2023 Osteoarthritis of left knee 06/12/2023 Paresthesia 06/12/2023 Fatty liver 05/24/2022 Hemorrhoids 05/24/2022 Type 2 diabetes mellitus without complication, without long-term current use of insulin ([facility]) 05/24/2022 Vitamin D deficiency 01/26/2018 Calcific Achilles tendinitis 11/16/2017 Obesity (BMI 30-39.9) 07/24/2017 Varicose veins of legs 07/24/2017 Hemangioma of choroid 01/23/2017 Stress incontinence 01/23/2017 Psoriasis 07/20/2016 Esophageal reflux 09/24/2013 ROLY on CPAP 08/06/2013 Abnormal MRI scan, head 10/01/2012 Microalbuminuria 03/02/2012 Spondylolisthesis 03/02/2012 Anxiety and depression 12/13/2011 Seropositive rheumatoid arthritis ([facility]) 09/22/2011 Thyroid nodule 09/22/2011 Past Surgical History: Procedure Laterality Date SECTION x3 PROCEDURE: HISTORICAL CHOLECYSTECTOMY PROCEDURE: HISTORICAL CHOLECYSTECTOMY COLONOSCOPY 12/20/2011 PROCEDURE: [place] COLONOSCOPY FLX DX W/COLLJ SPEC WHEN PFRMD; COMMENT: normal ESOPHAGOGASTRODUODENOSCOPY 09/26/2016 PROCEDURE: [place] EGD TRANSORAL BIOPSY SINGLE/MULTIPLE; COMMENT: mild gastritis, reflux esophagitis; noH. pylori or Barretts Esophagus HYSTERECTOMY 1991 PROCEDURE: HISTORICAL HYSTERECTOMY; COMMENT: Unilateral SPO NECK SURGERY 01/15/13 PROCEDURE: HISTORICAL NECK SURGERY; COMMENT: ACDF C5-6, C6-7 Dr. Lisa Jasso at [facility] OTHER SURGICAL HISTORY Left 02/05/2014 PROCEDURE: [place] BX/EXC LYMPH NODE OPEN DEEP AXILLARY NODE; [...] is on Enbrel and she follows with family development specialist at [facility] and joint pain symptoms are under control. Recent ultrasound thyroid suggestive of stable thyroid nodule and she was seen by the marketing summer intern. She has history of fatty liver and recently liver enzymes are within acceptable range. Patient is recommended to avoid alcohol drinking and to lose weight. I will refer to the binder stripper hand because she is worried about risk of [...] 9:00 AM EDT Office Visit Adult Medicine [address] [address] Nitesh Fitzpatrick MD [address] [place] [address] Scheduled Orders Name Type Priority Associated Diagnoses [...] documented as of this encounter Care Teams Pastry Supervisor Relationship Specialty Start Date End Date Nitesh Fitzpatrick MD [address] [place] [address] PCP - General Internal Medicine 06/29/21 documented as of this encounter
--- OUTSIDE RECORDS SUMMARY | 2024-06-05 12:42 | XMS_ITS | Clinical Summary ---
Author Organization [facility], Address [address] [place] [address] [place] [address] Phone Care Team Providers Care Seafood Preparer Name Role Phone Bettina Aguiar MD Primary Care Provider [phone] Allergies Active Allergy Reactions Criticality Noted Date [...] 03/07/2019 04/20/2020 Spondylosis without myelopathy 03/07/2019 04/20/2020 Ct's thyroiditis 04/11/201808/2020 Overview (03/07/2019): biopsy 11/2011 Vitamin [...] 99%. For the entire study, PLMs ~37. [facility] Polysomnogram treatment study. Date 04/14/2019. Wt 230#; [...] 13 Onset 2001.RFpositive On Enbrel since 2003 Immunizations Name Administration Dates Next Due Influenza [...] Visit [facility], [address] [place] [address] Stef Wright MD [address] [place] [address] Health Maintenance Due Date Last [...] Cholesterol 181 100 - 199 mg/dL [facility] Triglycerides 88 0 - 149 mg/dL [facility] HDL 52 >39 mg/dL [facility] VLDL Cholesterol Maximiliano 16 5 - 40 mg/dL [facility] LDL Calculated 113(H) 0 - 99 mg/dL [facility] Blood (Blood, Venous) 04/05/2024 10:31 AM EST 04/05/2024 us Stef Wright MD LAB BLOOD ORDERABLES Final Resul t Performing Organization Address City/[facility]/ZIP Co de Phone Number [facility] [address] [place] [address] * Protein, Total, Random Urine w/Creatinine (Protein/Creat Ratio) (04/05/2024 10:30 AM EST) Creatinine, Ur 79.4 Not Estab. mg/dL [facility] Protein, Ur 7.0 Not Estab. mg/dL [facility] Urine Protein/Creatin ine Ratio 88 0 - 200 mg/g creat [facility] Urine (Urine, Clean Catch) 04/05/2024 10:30 AM EST 04/05/2024 us Stef Wright MD LAB URINE ORDERABLES Final Resul t Performing Organization Address [facility] Co de Phone Number [facility] [address] [place] [address] * (ABNORMAL) Vitamin D 25 Hydroxy (04/05/2024 10:30 AM EST) Vitamin D, 25-OH, Total 20.7(L) 30.0 - 100.0 ng/mL [facility] Comment: Vitamin D deficiency has been defined by the [place] of [employer] and an Endocrine Society practice guideline as a level of serum 25-OH vitamin D less than 20 ng/mL (1,2). The Endocrine Society went on to further define vitamin D insufficiency as a level between 21 and 29 ng/mL (2). 1. IOM ([place] of [employer]). 2010. Dietary reference ?? intakes for calcium and D. [place]: The ?? National Academies Press. 2. Louise MF, Telly AL, [place] CLEMENTS, et al. ?? Evaluation, treatment, and prevention of vitamin D ?? deficiency: an Endocrine Society clinical practice ?? guideline. JCEM. 2010; 96(7):1911-30. Blood (Blood, Venous) 04/05/2024 10:30 AM EST 04/05/2024 us Stef Wright MD LAB BLOOD ORDERABLES Final Resul t Performing Organization Address City/[facility]/ZIP Co de Phone Number [facility] [address] [place] [address] * (ABNORMAL) Hemoglobin A1c (04/05/2024 10:30 AM EST) Hemoglobin A1C 7.0(H) 4.8 - 5.6 % [facility] Comment: ? Prediabetes: 5.7 - 6.4 ? Diabetes: >6.4 ? Glycemic control for adults with diabetes: <7.0 Blood (Blood, Venous) 04/05/2024 10:30 AM EST 04/05/2024 us Stef Wright MD LAB BLOOD ORDERABLES Final Resul t Performing Organization Address City/[facility]/ZIP Co de Phone Number Agency [facility] [address] [place] [address] * (ABNORMAL) Renal Function Panel (04/05/2024 10:30 AM EST) Glucose 152(H) 70 - 99 mg/dL [facility] BUN 17 8 - 27 mg/dL [facility] Creatinine 0.84 0.57 - 1.00 mg/dL [facility] eGFR CKD-EPI CR 2020 78 >59 mL/min/1.7 3 [facility] BUN/Creatinine Ratio 20 12 - 28 [facility] Sodium 140 134 - 144 mmol/L [facility] Potassium 4.8 3.5 - 5.2 mmol/L [facility] Chloride 103 96 - 106 mmol/L [facility] Bicarbonate (CO2) 25 20 - 29 mmol/L [facility] Calcium 8.6(L) 8.7 - 10.3 mg/dL [facility] Albumin 3.8(L) 3.9 - 4.9 g/dL [facility] Phosphorus 2.7(L) 3.0 - 4.3 mg/dL [facility] Blood (Blood, Venous) 04/05/2024 10:30 AM EST 04/05/2024 us Stef Wright MD LAB BLOOD ORDERABLES Final Resul t [facility] [address] [place] [address] from Last 3 Months Insurance [employer] DUAL SNP ([id number]) IDA BARAKAT [id number] Care Teams Seafood Preparer Relationship Specialty Start Date End Date Bettina Aguiar MD PCP - General 01/22/19
--- OUTSIDE RECORDS SUMMARY | 2024-06-05 12:42 | XMS_ITS | Clinical Summary ---
Author Organization [facility] [place] [facility] Address [address] [place] [phone] Phone Care Team Providers Care Electronics Technician Name Role Phone Nitesh Fitzpatrick MD Primary [...] 99%. For the entire study, PLMs ~37. [facility] Polysomnogram treatment study. Date 04/14/2019. [...] Encounters Date Type Department Care Team Description 06/05/2024 8:40 AM EDT Consult Gastroenterology - [place] [address] [place] [address] Zenaida Chabmers NP Fatty liver (Primary Dx); Morbid obesity with BMI of 40.0-44.9, adult ([facility]) 05/28/2024 8:00 AM EDT Office Visit Adult [address] [address] Nitesh Fitzpatrick MD Type 2 diabetes mellitus with diabetic microalbuminuria, without long-term current use of insulin ([facility]) (Primary Dx); CKD (chronic kidney disease) stage 2, GFR 60-89 ml/min; Seropositive rheumatoid arthritis ([facility]); Thyroid nodule; Fatty liver; ROLY on CPAP; Anxiety and depression; Insomnia, unspecified type; Encounter for screening mammogram for malignant neoplasm of breast; Encounter for osteoporosis screening in asymptomatic postmenopausal patient 05/02/2024 11:00 AM EST Treatment [address] [phone] Jamey Ma, ENVIRONMENTAL MANAGER Osteoarthritis of left knee, unspecified osteoarthritis type (Primary Dx) 04/23/2024 11:00 AM EST Treatment [address] [phone] Jamey Ma, ENVIRONMENTAL MANAGER Osteoarthritis of left knee, unspecified osteoarthritis type (Primary Dx) 04/11/2024 11:15 AM EST Evaluation [address] [address] Darell Lubin, PT Osteoarthritis of left knee, [...] CHOLECYSTECTOMY PROCEDURE: HISTORICAL CHOLECYSTECTOMY COLONOSCOPY 12/20/2011 PROCEDURE: OK COLONOSCOPY FLX DX W/COLLJ SPEC WHEN PFRMD; COMMENT: normal SECTION x3 PROCEDURE: HISTORICAL NECK SURGERY 01/15/13 PROCEDURE: HISTORICAL NECK SURGERY; COMMENT: ACDF C5-6, C6-7 Dr. Lisa Jasso at [facility] ESOPHAGOGASTRODUODENOSCOPY 09/26/2016 PROCEDURE: OK EGD TRANSORAL BIOPSY SINGLE/MULTIPLE; COMMENT: mild gastritis, reflux esophagitis; no H. pylori or Barretts Esophagus OTHER SURGICAL HISTORY 02/05/2014 Left PROCEDURE: OK BX/EXC LYMPH NODE OPEN DEEP AXILLARY NODE; [...] 13 Onset 2001.RFpositive On Enbrel since 2003 Ct's thyroiditis 04/11/2018 DX:Luz moriah's thyroiditis; COMMENT: [...] for your loved ones. For example, child welfare worker or elderly care for an older adult? [...] Pulse 97 06/05/2024 8:36 AM EDT Temperature 36.6 ??C (97.8 ??F) 05/28/2024 7:57 AM ED T Respiratory Rate 14 05/28/2024 7:57 AM EDT Oxygen Saturation 96% 06/05/2024 8:36 AM EDT Inhaled Oxygen Concentration - - Weight 108 kg (238 lb) 06/05/2024 8:36 AM EDT Height 162.6 cm (5' 4 ) 06/05/2024 8:36 AM EDT Body Mass Index 40.85 06/05/2024 8:36 AM EDT Plan of Treatment Upcoming Encounters Date Type Department Care Team (Late st Contact Info) Description 09/27/2024 9:00 AM EDT Office Visit Adult Medicine [address] [address] Nitesh Fitzpatrick MD [address] [place] [address] Health Maintenance Due Date Last Done Comments [...] Result * Urine Albumin Creatinine Ratio (01/31/2023) Pathologist [facility] Urine Albumin Creatinine Ratio Abstracted Historical Provider HEALTH MAINTENANCE Final Result * Colonoscopy (12/15/2022) Pathologist [facility] Colonoscopy No Interpretation , Abstracted Anatomical Region Laterality Modality Other Historical Provider HEALTH MAINTENANCE Final Result * Hepatitis C Screening (09/11/2012) Pathologist [facility] Hepatitis C Screening Abstracted [facility] Provider HEALTH MAINTENANCE Final Result from Last 3 Months or Most Recently Relevant to Health Maintenance Insurance [facility] MEDICARE Member Subscriber Plan / Payer (Ef fective 2018-Present) Name:Lina Kauffman Relation to Subscriber:Self Name:Lina Kauffman Payer ID:[id number] Group ID:[id number] Type:Not on file Address: [place] [address] [address] [address] Care Teams Electronics Technician Relationship Specialty Start Date End Date Nitesh Fitzpatrick MD [address] [place] [address] PCP - General Internal Medicine 06/29/21
--- OUTSIDE RECORDS SUMMARY | 2024-06-05 12:42 | XMS_ITS | Encounter Summary ---
Author Organization [facility] Address [address] [place] [address] Phone Care Team Providers Care Plating And Point Assembly Supervisor Name Role Phone Bettina Aguiar MD Primary Care Provider [phone] Encounter Details Date Type Department Care Team (Late Contact Info) Description 05/03/2023 Documentation Only [facility] [address] [address] Mariana Lomeli [address] [place] [phone] Social History Tobacco Use Types Packs/Day [...] Visit [facility] [address] [place] [address] Stef Wright MD [address] [place] [address] documented as of this encounter Visit Diagnoses Not on filedocumented in this encounter Care Teams Plating And Point Assembly Supervisor Relationship Specialty Start Date End Date Bettina Aguiar MD PCP - General 01/22/19 documented as of this encounter
== END 2024-06-05 11:44 | disposition home or self-care (01) ==
LOC: HO.RHE 10:41
PROVIDERS: Visit Provider Student in an Organized Health Care Education/Training Program
DX: M05.79 Rheumatoid arthritis with rheumatoid factor of multiple sites without organ or systems involvement (principal); M15.9 Polyosteoarthritis, unspecified; Z51.81 Encounter for therapeutic drug level monitoring; Z79.620 Long term (current) use of immunosuppressive biologic; Z79.899 Other long term (current) drug therapy; M19.011 Primary osteoarthritis, right shoulder; M19.012 Primary osteoarthritis, left shoulder
CPT/HCPCS: 20605; 99214

== ENCOUNTER → 2024-06-05 10:40 | Outpatient (BNVA) | payer OTHER, SELFPAY | PROVIDERS: Visit Provider Student in an Organized Health Care Education/Training Program | DX: M05.9 Rheumatoid arthritis with rheumatoid factor, unspecified (principal); M15.9 Polyosteoarthritis, unspecified; Z51.81 Encounter for therapeutic drug level monitoring; Z79.620 Long term (current) use of immunosuppressive biologic; Z79.899 Other long term (current) drug therapy | CPT/HCPCS: 20605; 99212; J3300 ==

== ENCOUNTER 2024-10-10 09:46 | Outpatient (AMB) | payer OTHER, SELFPAY ==
--- OUTSIDE RECORDS SUMMARY | 2024-10-10 10:25 | XMS_ITS | Encounter Summary ---
Author Organization [employer] Address [address] [place] [address] Care Team Providers Care Senior Architectural Designer Name Role Phone Nitesh Fitzpatrick MD Primary Care Provider [phone] Reason for Visit * Reason Onset Date Comments Med Refill 10/09/2024 Zepbound Encounter Details Date Type Department Care Team ([facility] st Contact Info) Description 10/09/2024 Telephone Bariatric Surgery - [place] [address] [place] [address] Jason Nair MD [address] [address] [facility] [address] [place], [place] [id number] Med Refill (Zepbound) Social History Tobacco Use Types Packs/Day Years [...] Record ed Within the last 3 months, jayme young many times did you visit the emergency [...] care for your loved ones. For example, exceptional children teacher or elderly care for an older adult? [...] is your living situation? 0 05/24/2024 Comments No Sex and Gender Information Value Date Recorded Sex Assigned at Not on file Legal Sex Female 2:57 AM EST Gender Identity Not on file Sexual Orientation Not on file documented as of this encounter Progress Notes * April Bennett - 10/09/2024 4:13 PM EDT Patient did well on Zepbound 5 mgs and would like a refill with titration. If appropriate, please send script for Zepbound 7.5 mgs to their pharmacy. The patient does have a follow up in 10/21/2024 documented in this encounter Plan of Treatment Upcoming Encounters Date Type Department Care Team (Late st Contact Info) Description 10/10/2024 12:30 PM EDT Office Visit [address] [phone] Nitesh Fitzpatrick MD [address] [place] [address] 10/21/2024 2:15 PM EDT Telemedicine Bariatric Surgery - [place] [address] [address] Jason Nair MD [address] [address] 01/17/2025 3:00 PM EDT Appointment Radiology Department - [address] [phone] 01/29/2025 1:30 PM EST Office Visit [address] [phone] Nitesh Fitzpatrick MD [address] [place] [address] documented as of this encounter Goals Goal Patient Goal Type Associated Problems Recent Progress Patient-Stated? Author PT LTGs General Yes Darell Lubin, NASIR Note: Pt will complete 6 minute walk with no left knee pain Pt will present with negative valgus stress test on Left knee Pt will be independent with HEP documented as of this encounter Visit Diagnoses Not on filedocumented in this encounter Additional Health Concerns Assessment Noted Time PHQ-9 Depression Total Score: 0 05/25/19 25 1:49 AM EST documented as of this encounter Care Teams Senior Architectural Designer Relationship Specialty Start Date End Date Nitesh Fitzpatrick MD [address] [place] [address] PCP - General Internal Medicine 06/29/21 documented as of this encounter
--- OUTSIDE RECORDS SUMMARY | 2024-10-10 10:25 | XMS_ITS | Encounter Summary ---
Author Organization [facility] Address [address] [place] [address] Phone Care Team Providers Care General Operations Agent Name Role Phone Bettina Aguiar MD Primary Care Provider [phone] Encounter Details Date Type Department Care Team (Late Contact Info) Description 02/17/2022 Documentation Only [facility] [address] [place] [address] Tish Miguel PA [address] [place] [address] Social History Tobacco Use Types Packs/Day Years [...] Visit [facility] [address] [place] [address] Stef Wright MD [address] [place] [address] documented as of this encounter Visit Diagnoses Not on filedocumented in this encounter Care Teams General Operations Agent Relationship Specialty Start Date End Date Bettina Aguiar MD PCP - General 01/22/19 documented as of this encounter
[2024-10-10 10:40] VITALS: BP 122/72; PULSE 76; O2SAT 99; BMI 37.0
--- NOTE | 2024-10-10 10:40 | MHC.OFFVIS ---
Vital Signs 10/10/24 10:40 Height 5 ft 4 in Weight 215 lb 6.266 oz BMI 37.0 BP 122/72 Blood Pressure Location Lt brachial Position Sitting Pulse 76 Pulse Source Pulse Oximeter Pulse Oximetry (%) 99 Oxygen Delivery Method Room Air Intake Visit Reasons: RA Intake Note: Patient presents for follow up on RA. Allergies lisinopril Allergy (Unknown, Verified 10/10/24 10:45) cough morphine Allergy (Unknown, Verified 10/10/24 10:45) palpitations Medication List - Last Reconciled 10/10/24 by Deirdre Chávez MD cetirizine 10 mg PO DAILY cholecalciferol (vitamin D3) 25 mcg PO DAILY cyanocobalamin (vitamin B-12) 1,000 mcg PO DAILY cyclosporine 0.05% (Restasis MultiDose) drps ophthalmic (eye) diclofenac sodium 1% 1 - 2 grams topical QID duloxetine 20 mg PO BID etanercept (Enbrel SureClick) 50 mg subcut QWEEK hydroxychloroquine (Plaquenil) 200 mg PO BID lorazepam 0.5 mg PO DAILY PRN losartan 12.5 mg PO DAILY meloxicam 15 mg PO DAILY PRN metformin 500 mg PO QAM mirabegron ER (Myrbetriq) 25 mg PO DAILY xhwermfb-vvpqpq-JU-thonzonium 3.3-3-10-0.5 mg/mL (Cortisporin-TC) 4 drps otic (ear) left TID oxybutynin chloride ER 15 mg PO DAILY tirzepatide (weight loss) (Zepbound) 5 mg subcut QWEEK zolpidem 5 mg PO BEDTIME HPI Comments Details: Patient is a 64-year-old female with hypertension, type 2 diabetes, depression, GERD, psoriasis and seropositive rheumatoid arthritis here today for follow up Interval History: Patient last seen 06/05/24 with me - On Enbrel - C/o of bilateral wrist pain, left knee pain and bilateral AC joints. Pain attributed to OA - XRs ordered - Bilateral AC joint injection - Added plaquenil to her regimen Today - Doing better overall - Shoulders improved after injection - C/o of knee pain L>R Rheumatologic History: Seropositive rheumatoid arthritis Given penicillin prophylaxis for acute rheumatic fever until age 12(in [place]) Onset RA 2001. ++RF+++CCP On Enbrel since 2003 effective. Was on Humira for short period of time, was not effective Current Rheumatology Medication(s): Enbrel 50mg SC weekly Meloxicam 15mg prn Plaquenil 200mg bid PFSH Family History (Updated 06/05/24 @ 10:55 by PAOLA Singh) Daughter Liver disease Social History Household Members Other:: lives alone Housing: Apartment Are you a primary patient care technician instructor to a significant other at home: No Do you presently have visiting nurse or other home services: No 75 years or older and lives alone: No Alcohol intake: never Patient Tobacco Use Status: Never used Tobacco e-Cigarette/Vaping Use: Never Used service: No Current occupational status: disabled Review of Systems Const Details: Review of Systems Constitutional: Denies fever, chills, weight loss ENT: Denies vision changes, eye pain or eye redness, dental caries, dry mouth GI: Denies nausea, vomiting, diarrhea, abdominal pain, change in BM Pulm: Denies SOB, VEGA, hemoptysis, wheezing Cards: Denies chest pain, palpitations Skin: Denies Raynaud's, rash, nail changes, photosensitivity, FOREST PRODUCTS TEACHER: Denies headaches, weakness, paresthesias, recurrent falls MSK: as per HPI All other systems reviewed and are unremarkable except noted above Physical Exam Exam Exam: Vital signs reviewed Physical Examination CONSTITUITIONAL Patient alert and cooperative. Well appearing and in no apparent painful distress MSK Hands Right Hand: Able to make a fist. No swelling or tenderness to palpation of these joints. No deformities noted. Left Hand: Able to make a fist. No swelling or tenderness to palpation of these joints. No deformities noted. Wrists Right Wrist: Full ROM. 70 degrees of wrist flexion, 80 degrees of wrist extension. No swelling or TTP Left Wrist: Full ROM. 70 degrees of wrist flexion, 80 degrees of wrist extension. No swelling or TTP Elbows Right Elbow: Full ROM. No swelling or TTP. No TTP of the medial and lateral epicondyles Left Elbow: Full ROM. No swelling or TTP. No TTP of the medial and lateral epicondyles Shoulders Right shoulder: Full ROM. No swelling noted. No TTP of the AC joint, subacromial bursa or posterior shoulder Left shoulder: Full ROM. No swelling noted. No TTP of the AC joint, subacromial bursa or posterior shoulder Knees Right knee: Full ROM. No swelling noted. No TTP of the knee joint line Left knee: Full ROM. No swelling noted. No TTP of the knee joint line TTP bilateal pes anserine bursa L>R Ankles Right ankle: Good ankle dorsiflexion and plantar flexion. No swelling. No TTP of the ankle joint Left ankle: Good ankle dorsiflexion and plantar flexion. No swelling. No TTP of the ankle joint Feet Right foot: Negative squeeze test Left foot: Negative squeeze test Tender points? No tenderness to palpation of the bilateral trapezius, supraspinatus, anterior costochondral junctions, bilateral suboccipital muscle insertions SKIN No rashes Vital Signs: Last Vital Signs Pulse 76 10/10/24 10:40 BP 122/72 10/10/24 10:40 Pulse Ox 99 10/10/24 10:40 Oxygen Delivery Method Room Air 10/10/24 10:40 BMI result Body Mass Index 37.0 Office Procedures AMB Joint Injection/Aspiration Joint Injection/Aspiration Details: Procedure was explained to the patient and informed consent was obtained. ? Risks associated with the procedure were discussed with the patient including but not limited to bleeding, infection, drug reactions and reactions to the topical anesthetic. Patient made aware of signs to look out for infectious complications. The area of interest was identified and confirmed with patient. ?This was subsequently cleaned with chlorhexidine x 2. ? The area was then anesthetized using ethyl chloride spray. 40 mg Kenalog with 1 cc 1% lidocaine was injected without issue. ?Minimal to no bleeding. ?Patient tolerated procedure. Primary Site: left knee (left pes anserine bursitis ) Prep: site was prepped using aseptic technique and ethochloride spray was applied Injected: 40 mg of, Kenalog, with 1 mL of and 1% plain lidocaine Approach Used: anterior Procedure: The patient tolerated the procedure well Coding 50607 - Large joint Procedure code (CPT) selection complete Office Meds lidocaine (PF) 10 mg/mL (1 %) injection solution Performing Provider: Deirdre Chávez MD Performing Location: [facility] Administered by: Deirdre Chávez MD on 10/10/24 11:22 Dose Route Admin Location Dispensed Lot Number Expiration Date [facility] Isobutylene Operator Chief 1 mL Infiltration left pes anserine bursa 2 mL [id number] 07/18/26 60822-218-66 [employer] Total Dispensed Waste 2 mL 50 % Kenalog 40 mg/mL suspension for injection Performing Provider: Deirdre Chávez MD Performing Location: [facility] Administered by: Deirdre Chávez MD on 10/10/24 11:22 Dose Route Admin Location Dispensed Lot Number Expiration Date [employer] Isobutylene Operator Chief 40 mg intrabursal left pes anserine bursa 1 mL [id number] 08/18/25 [address]-0 [employer] Total Dispensed Waste 1 mL 0 % Results Reviewed Results Reviewed: Laboratory Tests 05/31/24 13:33 WBC 5.0 RBC 4.67 Hgb 13.0 Hct 39.1 Plt Count 222 ESR 11 Sodium 141 Potassium 4.3 Chloride 109 H Carbon Dioxide 28 BUN 21 H Creatinine 0.77 Calcium 8.6 D Total Bilirubin 0.3 AST 22 ALT 26 Alkaline Phosphatase 81 C-Reactive Protein 0.44 Total Protein 7.1 Albumin 3.4 L Infectious serologies 01/03/24 09:40 Hepatitis A IgM Ab Nonreactive Hep Bs Antigen Negative Hep Bs Antibody NONREACTIVE Hep B Core Total Ab Nonreactive Hepatitis C Ab (EIA) Nonreactive TB Test (T-Spot) Com Negative Assessment & Plan Assessment & Plan (1) Seropositive rheumatoid arthritis: Comment: Given penicillin prophylaxis for acute rheumatic fever until age 12(in [place]) Onset RA 2001. ++RF+++CCP On Enbrel since 2003 effective. Was on Humira for short period of time, was not effective Code(s): M05.9 - Rheumatoid arthritis with rheumatoid factor, unspecified Category: Medical Plan: #Seropositive RA Patient is a 64-year-old female with seropositive rheumatoid arthritis currently on Enbrel and plaquenil. No active synovitis on exam today Plan - Plaquenil 200 mg p.o. b.i.d. - Continue Enbrel 50 mg weekly SC - RTC 4 months - Labs before visit: CBC, CMP, ESR, CRP (2) Generalized osteoarthritis: Code(s): M15.9 - Polyosteoarthritis, unspecified Plan: #Generalized OA AC joints doing better after injection Knee pain is related to pes anserine bursitis s/p L knee injection today Follow up XRs Plan - Check XR hands, wrists, knees and shoulders - S/p left pes anserine bursa steroid injection (3) Encounter for monitoring of etanercept therapy: Code(s): Z51.81 - Encounter for therapeutic drug level monitoring; Z79.620 - group home (current) use of immunosuppressive biologic Plan: #Long-term Use of TNF Inhibitors: Etanercept Discussed with the patient the benefits and risks of TNF inhibitors for the management of the rheumatic condition Benefits include reduce pain, maintenance of remission and reduction of flares as well as ?progression of the disease Risks include injection sites/infusion reactions, serious infections (such as bacterial infections, opportunistic infections), malignancy, delaminating syndromes, autoimmune phenomena, CHF exacerbations, palmar plantar psoriasis and cytopenias Recommended rotating injection sites, and holding medication during and for up to 1 week after resolution of a febrile illness or open skin wound (4) Encounter for monitoring of hydroxychloroquine therapy: Code(s): Z51.81 - Encounter for therapeutic drug level monitoring; Z79.899 - Other skilled nursing (current) drug therapy Plan: #Long-term Use of Hydroxychloroquine Discussed with patient the risks and benefits of hydroxychloroquine in managing the rheumatic condition Benefits include: - Reduced pain, reduce mortality, maintenance of remission and reduction of flares Risks include: - GI upset, skin hyperpigmentation, retinal toxicity (especially after more than 5 years of use), myopathy Advised yearly ophthalmology visits Plan I spent 30 minutes reviewing the record and labs, taking a history, examining the patient, discussing the treatment plan, ordering diagnostic work up and documenting in the medical record Orders: Orders AMB Joint Injection/Aspiration Today M70.52 - Other bursitis of knee, left knee Medications: Refilled meloxicam 15 mg PO DAILY PRN 30 tabs 4RF rheuma art M05.9 - Rheumatoid arthritis with rheumatoid factor, unspecified etanercept (Enbrel SureClick) 50 mg subcut QWEEK 4 mL 4RF M05.9 - Rheumatoid arthritis with rheumatoid factor, unspecified hydroxychloroquine (Plaquenil) 200 mg PO BID 90 tabs 1RF M05.9 - Rheumatoid arthritis with rheumatoid factor, unspecified Coding Level of Care Code Est Pt Level 4 (80672) Complex EM visit Add On G2211 Diagnoses Seropositive rheumatoid arthritis M05.9 Generalized osteoarthritis M15.9 Encounter for monitoring of etanercept therapy Z51.81; Z79.620 Encounter for monitoring of hydroxychloroquine therapy Z51.81; Z79.899 CPT Codes Coding - 63710 Large joint: 58874 - Large joint ([id number])
== END 2024-10-10 11:18 | disposition home or self-care (01) ==
LOC: HO.RHE 09:47
PROVIDERS: PCP Student in an Organized Health Care Education/Training Program; Visit Provider Student in an Organized Health Care Education/Training Program
DX: M05.79 Rheumatoid arthritis with rheumatoid factor of multiple sites without organ or systems involvement (principal); M15.9 Polyosteoarthritis, unspecified; M70.52 Other bursitis of knee, left knee; Z51.81 Encounter for therapeutic drug level monitoring; Z79.620 Long term (current) use of immunosuppressive biologic; Z79.899 Other long term (current) drug therapy
CPT/HCPCS: 20610; 99214

== ENCOUNTER → 2024-10-10 09:46 | Outpatient (BNVA) | payer OTHER, SELFPAY | PROVIDERS: PCP Student in an Organized Health Care Education/Training Program; Visit Provider Student in an Organized Health Care Education/Training Program | DX: M05.9 Rheumatoid arthritis with rheumatoid factor, unspecified (principal); M70.52 Other bursitis of knee, left knee; M15.9 Polyosteoarthritis, unspecified; Z51.81 Encounter for therapeutic drug level monitoring; Z79.620 Long term (current) use of immunosuppressive biologic; Z79.899 Other long term (current) drug therapy | CPT/HCPCS: 20610; 99212; J2003; J3300 ==

== ENCOUNTER 2025-02-03 14:24 | Outpatient (REF) | payer OTHER, SELFPAY ==
[2025-02-03 14:31] LABS: MANUAL DIFF FLAG NO
[2025-02-03 18:22] LABS: Hematocrit 42.5 % (37.0-47.0); Hemoglobin 13.7 g/dl (12.0-16.0); Imm Gran Abs Auto 0.01 X10*3/uL (0.00-0.03); Imm Gran Pct Auto 0.2 % (0.0-0.4); Lymphocytes Absolute Auto 1.8 X10*3/uL (1.2-4.9); Mean Corpuscular HGB Conc 32.2 g/dl (31.0-35.0); Mean Corpuscular Hemoglobin 28.4 pg (27.0-33.0); Mean Corpuscular Volume 88.2 fL (80.0-98.0); NRBC Abs Auto 0.000 X10*3/uL (0.0-0.012); NRBC Pct Auto 0.0 /100WBC (0.0-0.2); Platelet Count 258 X10*3/uL (160-400); Red Blood Count 4.82 X10*6/uL (4.20-5.50); White Blood Count 5.8 X10*3/uL (4.8-10.8)
[2025-02-03 18:33] LABS: Alanine Aminotransferase 93 U/L (0-31); Albumin Level 4.0 g/dL (3.5-5.0); Alkaline Phosphatase 187 U/L (39-117); Anion Gap 12 (12-20); Aspartate Amino Transferase 68 U/L (5-31); Blood Urea Nitrogen 16 mg/dL (9-16); Calcium 9.2 mg/dL (8.4-10.2); Carbon Dioxide 28 mmol/L (22-29); Chloride 105 mmol/L (96-108); Estimated Glomerular Filt Rate > 60; Potassium 3.9 mmol/L (3.3-5.1); Sodium 141 mmol/L (135-145); Total Protein 7.4 g/dL (6.5-8.0)
--- OUTSIDE RECORDS SUMMARY | 2025-02-04 04:41 | XMS_ITS | Clinical Summary ---
Author Organization [facility] [address] [facility] Address [address] [place] [address] Phone Care Team Providers Care Cassandra Consultant Name Role Phone Nitesh Fitzpatrick MD Primary [...] as directed every 7 days. 2 Active LORazepam (ATIVAN) 1 mg tablet Take 1 Tab by mouth 2 times daily as needed for Anxiety (or panic attack). 3 Active mirabegron (Myrbetriq) 25 mg 24 hr tablet Take 1 Tablet by mouth daily. 2 Active zolpidem (AMBIEN) 5 mg tablet 1 Tab at bedtime as needed. 4 Active Vitamin D3 25 mcg (1,000 unit) capsule TAKE 1 CAPSULE BY MOUTH TWICE DAILY NEEDED 90 capsule 3 5 Active benzonatate (TESSALON) 100 mg capsule Take 1 capsule (100 mg total) by mouth 3 (three) times a day if needed for cough. Do not crush or chew. 30 capsule 5 Active carbamide peroxide (Debrox) 6.5 % otic solution Administer 5 drops into each ear 2 (two) times a day. 15 mL 5 Active hydroxychloroq uine (PLAQUENIL) 200 mg tablet Take 1 tablet (200 mg total) by mouth 2 (two) times a day. 5 Active meloxicam (MOBIC) 15 mg tablet Take 1 tablet (15 mg total) by mouth 1 (one) time each day. 5 Active conjugated estrogens (Premarin) vaginal cream USE A PEA SIZED AMOUNT OF CREAM IN THE VAGINA 3 TIMES A WEEK 90 g 5 Active diclofenac (VOLTAREN) 1 % topical gel Apply 4 g topically 2 (two) times a day. 1 each 1 5 Active polyethylene glycol (MIRALAX) 17 gram packet Take 17 g by mouth 1 (one) time each day. 1530 g 1 5 Active tirzepatide, weight loss, (Zepbound) 12.5 mg/0.5 mL injection Inject 0.5 mL (12.5 mg total) under the skin every 7 (seven) days. 2 mL 2 5 04/26/19 26 Active diclofenac (VOLTAREN) 1 % topical gel Apply 4 g topically 2 (two) times a day. 1 each 1 4 01/30/20 25 Discontinu ed(Reorder ) Zepbound 10 mg/0.5 mL injectionIndic ations:Morbid obesity with BMI of 40.0-44.9, adult (CMS/HCC V24, CMS/HCC V28) ADMINISTER 10 MG UNDER THE SKIN EVERY 7 DAYS 2 mL 1 5 02/02/20 25 Discontinu ed(Dose adjustment ) Active Problems Problem Noted Date Diagnosed Date Abdominal bloating 12/11/2024 Arthritis 12/11/2024 Breast pain 12/11/2024 Epigastric pain 12/11/2024 Lymphadenopathy, axillary 12/11/2024 Lymphedema 12/11/2024 Multinodular thyroid 12/11/2024 Type 2 diabetes mellitus wit h diabetic microalbuminuria, without long-term current use of insulin ([facility] V24, [facility] V28) 05/27/2024 CKD (chronic kidney disease) stage 2, GFR 60-89 ml/min 05/27/2024 Insomnia 06/12/2023 Osteoarthritis of left knee 06/12/2023 Paresthesia 06/12/2023 Fatty liver 05/24/2022 Hemorrhoids 05/24/2022 Type 2 diabetes mellitus wit hout complication, without long-term current use of insulin ([facility] V24, [facility] V28) 05/24/2022 Right flank pain 02/22/2021 Vitamin D deficiency 01/26/2018 Calcific Achilles tendinitis [...] 99%. For the entire study, PLMs ~37. [facility] Polysomnogram treatment study. Date 04/14/2019. Wt [...] Spondylolisthesis 03/02/2012 Overview (02/09/2024): L4-L5 MRI 07/2016 Proteinuria 03/02/2012 Overview (12/11/2024): ~ 250mg. (2011): JAIME,ANCA, PADMINI negative. On lisinopril. No hx HTN Anxiety and depression 12/13/2011 Seropositive rheumatoid arth ritis ([facility] V24, [facility] V28) 09/22/2011 Overview (02/09/2024): Given penicillin prophylaxis for acute rheumatic fever until age 12 Onset 2001.RFpositive On Enbrel since 2003 Thyroid nodule 09/22/2011 Overview (02/09/2024): FNA 11/29; Ct's thyroid; FNA 11/30 BENIGN Encounters Date Type Department Care Team Description 01/31/2025 Telephone Bariatric Surgery [address] [phone] Jason Nair MD 01/31/2025 Telephone Bariatric Surgery [address] [phone] Jason Nair MD 01/29/2025 1:30 PM EST Office Visit Adult [address] [phone] Nitesh Fitzpatrick MD Type 2 diabetes mellitus with diabetic microalbuminuria, without long-term current use of insulin (CMS/HCC V24, CMS/[facility] V28) (Primary Dx); Obesity (BMI 35.0-39.9 without comorbidity); Constipation, unspecified constipation type; CKD (chronic kidney disease) stage 2, GFR 60-89 ml/min; Seropositive rheumatoid arthritis (CMS/HCC V24, CMS/HCC V28); Thyroid nodule; Fatty liver; ROLY on CPAP; Anxiety and depression 01/21/2025 Results Follow-Up [address] [phone] Nitesh Fitzpatrick MD 01/17/2025 2:31 PM EDT - 01/17/2025 11:59 PM EDT Hospital Encounter Radiology Department - [address] [phone] Encounter for screening mammogram for malignant neoplasm of breast Discharge Disposition: Home or Self Care 01/08/2025 Telephone Adult [address] [phone] Nitesh Fitzpatrick MD 12/11/2024 1:00 PM EDT Consult Pulmonology - [address] [phone] Harini Bose MD Obstructive sleep apnea (Primary Dx); Morbid obesity due to excess calories (CMS/HCC V24, CMS/HCC V28) 12/03/2024 Telephone Bariatric Surgery - [address] [phone] Jason Nair MD 11/05/2024 Telephone Bariatric Surgery - [address] [phone] Jason Nair MD from Last 3 Months Immunizations Immunization Administration Dates Next Due Influenza Quadravalent, MDCK [...] Surgical History Surgery Date Site/Laterality Comments HYSTERECTOMY 1992 PROCEDURE: HISTORICAL HYSTERECTOMY; COMMENT: Unilateral SPO CHOLECYSTECTOMY PROCEDURE: HISTORICAL CHOLECYSTECTOMY COLONOSCOPY 12/20/2011 PROCEDURE: CO COLONOSCOPY FLX DX W/COLLJ SPEC WHEN PFRMD; COMMENT: normal SECTION x3 PROCEDURE: HISTORICAL NECK SURGERY 01/15/13 PROCEDURE: HISTORICAL NECK SURGERY; COMMENT: ACDF C5-6, C6-7 Dr. Lisa Jasso at [facility] ESOPHAGOGASTRODUODENOSCOPY 09/26/2016 PROCEDURE: CO EGD TRANSORAL BIOPSY SINGLE/MULTIPLE; COMMENT: mild gastritis, reflux esophagitis; no H. pylori or Barretts Esophagus OTHER SURGICAL HISTORY 02/05/2014 Left PROCEDURE: CO BX/EXC LYMPH NODE OPEN DEEP AXILLARY NODE; [...] back; left lower Seropositive rheumatoid arth ritis (CMS/HCC V24, CMS/HCC V28) 09/22/2011 DX:Seropositive rheumatoid arthritis (HCC); COMMENT: Given [...] Mother at 74 Breast cancer Other 1 cousin first cousin o n mother side 2 primary breast at 48 Other: thyroid cancer Other 2 first cousin once removed Colon cancer Sister adenocarcinoma Relation Name Status Comments Brother 1 Brother 2 Brother 3 Father Mother Other 1 cousin Other 2 Sister Social History Tobacco Use [...] ed Within the last 3 months, jayme w many times did you visit the [...] for your loved ones. For example, child development associate teacher or elderly care for an older [...] Date Recorded What is your living situation? Unrecognized valu e 05/24/2024 Comments No Sex and Gender Information Value Date Recorded Sex Assigned at Not on file Legal Sex Female 2:57 AM EST Gender Identity Not on file Sexual Orientation Not on file Obstetrics History Para Term AB IAB SAB Ectopic Multiple Livin g Live Births 3 3 3 3 Date Outcome GA Total Labor Labor/2nd/3rd Weight Sex Type Anes PTL Aleisha A1 A5 Name Clin Term Term Term Last Filed Vital Signs Vital Sign Reading Time Taken Comments Blood Pressure 122/72 01/29/2025 1:46 PM EST Pulse 84 01/29/2025 1:46 PM EST Temperature 36.1 C (96.9 F) 01/29/2025 1:46 PM EST Respiratory Rate 20 12/11/2024 12:59 PM EDT Oxygen Saturation 95% 12/11/2024 12:59 PM EDT Inhaled Oxygen Concentration - - Weight 89.8 kg (198 lb) 01/29/2025 1:46 PM EST Height 160 cm (5' 3 ) 01/29/2025 1:46 PM EST Body Mass Index 35.07 01/29/2025 1:46 PM EST Plan of Treatment Upcoming Encounters Date Type Department Care Team (Late st Contact Info) Description 02/07/2025 10:30 AM EST Office Visit Bariatric Surgery - [place] [address] [facility] [address] [place] [phone] Lachelle Dill MD [address] [place] [phone] 06/06/2025 11:30 AM EDT Office Visit Adult Medicine [facility] [address] [place], [place] [phone] Nitesh Fitzpatrick MD [address] [place] [phone] 06/10/2025 1:00 PM EDT Office Visit Pulmonology - [place] [address] [facility] [address] [place] [phone] Harini Bose MD [address] [place] [phone] Health Maintenance Due Date Last Done Comments Diabetes: Annual Foot Exam 05/24/1969 Diabetes: Annual Retina Eye Exam 05/24/1969 Zoster Vaccines (1 of 2) 05/24/1978 RSV Immunization Adult Patients (1 - Risk 50-74 years 1-dose series) 05/24/2009 COVID-19 Vaccine (3 - Pfizer risk series) 10/26/2020 09/28/2020, 08/31/2020 Medicare Annual Wellness Visit 02/26/2022 Influenza Vaccine (#1) 2024 , 02/07/2019, 02/27/2018, Additional history exists Social Influencers of Health Screening 05/24/2025 05/24/2024 Falls Risk Assessment 05/28/2025 05/28/2024 Diabetes: Blood Sugar Control Test (HGBA1C) 06/02/2025 12/03/2024, 12/03/2024, 09/17/2024, Additional history exists Diabetes: Annual Urine Albumin-Creatinine Ratio (uACR) 09/17/2025 09/17/2024, 01/31/2023 Diabetes: Annual GFR (Glomerular Filtration Rate) 09/17/2025 09/17/2024, 06/12/2023 Breast Cancer Screening 01/17/2027 01/17/2025 Cholesterol Screening (Lipid Panel) 04/05/2029 04/05/2024, 06/12/2023 DTaP,Tdap,and Td Vaccines (3 - Td or Tdap) 09/05/2032 09/05/2022, 05/01/2012 Colorectal Cancer Screening: Colonoscopy 12/15/2032 12/15/2022 Osteoporosis Screening (Bone Density Screening) 09/27/2034 09/27/2024 Hepatitis C Screening Completed 09/11/2012 Pneumococcal Vaccine: 50+ Years Completed 01/09/2023 Depression Screening Completed 05/24/2024 HIB Vaccines Aged Out No longer eligi [...] age to complete this topic Meningococcal B Vaccine Aged Out No l onger eligible based on patient's age to complete [...] Procedure Name Priority Date/Time Associated Diagnosis Comments MG MAMMO DIGITAL SCREENING W STEVE BILAT Routine 01/17/2025 2:47 PM EDT Encounter for screening mammogram for malignant neoplasm of breast BD BONE DENSITY DXA AXIAL W VERTEBRAL FX ASMT Routine 09/27/2024 10:05 AM EDT Encounter for osteoporosis screening in asymptomatic postmenopausal patient MICROALBUMIN CREATININE URINE RATIO Routine 09/17/2024 2:17 PM EDT Type 2 diabetes mellitus with diabetic microalbuminuria, without long-term current use of insulin (CMS/[facility] V24, CMS/HCC V28) CKD (chronic kidney disease) stage 2, GFR 60-89 ml/min Seropositive rheumatoid arthritis (CMS/HCC V24, CMS/HCC V28) Thyroid nodule Fatty liver ROLY on CPAP Anxiety and depression Insomnia, unspecified type COMPREHENSIVE METABOLIC PANEL Routine 09/17/2024 2:17 PM EDT Type 2 diabetes mellitus with diabetic microalbuminuria, without long-term current use of insulin (CMS/HCC V24, CMS/HCC V28) CKD (chronic kidney disease) stage 2, GFR 60-89 ml/min Seropositive rheumatoid arthritis (CMS/HCC V24, CMS/HCC V28) Thyroid nodule Fatty liver ROLY on CPAP Anxiety and depression Insomnia, unspecified type HEMOGLOBIN A1C Routine 09/17/2024 2:17 PM EDT Type 2 diabetes mellitus with diabetic microalbuminuria, without long-term current use of insulin (CMS/HCC V24, CMS/HCC V28) CKD (chronic kidney disease) stage 2, GFR 60-89 ml/min Seropositive rheumatoid arthritis (CMS/HCC V24, CMS/HCC V28) Thyroid nodule Fatty liver ROLY on CPAP Anxiety and depression Insomnia, unspecified type LIPID PANEL Routine 06/12/2023 COLONOSCOPY Routine 12/15/2022 HEPATITIS C SCREENING Routine 09/11/2012 from Last 3 Months or Most Recently Relevant to Health Maintenance Results * MG Mammo Digital Screening w Steve bilat (01/17/2025 2:47 PM EDT) Anatomical Region Laterality Modality Breast Bilateral Mammography 01/21/2025 12:0 5 PM EST Impressions 01/21/2025 12:45 PM EST 1. No mammographic evidence of malignancy 2. Scattered fibroglandular tissue BI-RADS CATEGORY: 2 - BENIGN RECOMMENDATION: Screening bilateral mammogram is recommended in 1 year. Mammo Location: [facility], [address] [place] [address], [phone], . -------- FINAL REPORT -------- Dictated By: Jcarlos lFores Dictated Date: 01/21/2025 12:05 ET Assigned Physician: Jcarlos Flores Reviewed and Electronically Signed By: Jcarlos Flores Signed Date: 01/21/2025 12:45 ET Workstation ID: [id number] Transcribed By: Self Edit Transcribed Date: 01/21/2025 12:42 ET Narrative 01/21/2025 12:45 PM EST A BILATERAL DIGITAL 3D SCREENING MAMMOGRAPHY HISTORY: Routine screening. Family history of breast cancer in mother. COMPARISON: Mammograms dating back to 01/11/2012 Technique: Bilateral full field digital mammography (3D) was performed using standard CC and MLO projections CAD was used to evaluate this mammogram. FINDINGS: Right: No suspicious masses, groups of microcalcification or areas of architectural distortion identified. Stable typically benign parenchymal asymmetries. Left: No suspicious masses, groups of microcalcification or areas of architectural distortion identified. Stable typically benign parenchymal asymmetries. BREAST DENSITY: B - There are scattered areas of fibroglandular density. Procedure Note Jcarlos Flores MD - 01/21/2025 A BILATERAL DIGITAL 3D SCREENING MAMMOGRAPHY HISTORY: Routine screening. Family history of breast cancer in mother. COMPARISON: Mammograms dating back to 01/11/2012 Technique: Bilateral full field digital mammography (3D) was performedusing standard CC and MLO projections CAD was used to evaluate this mammogram. FINDINGS: Right: No suspicious masses, groups of microcalcification or areas ofarchitectural distortion identified. Stable typically benign parenchymalasymmetries. Left: No suspicious masses, groups of microcalcification or areas ofarchitectural distortion identified. Stable typically benign parenchymalasymmetries. BREAST DENSITY: B - There are scattered areas of fibroglandular density. IMPRESSION: 1. No mammographic evidence of malignancy 2. Scattered fibroglandular tissue BI-RADS CATEGORY: 2 - BENIGN RECOMMENDATION: Screening bilateral mammogram is recommended in 1 year. Mammo Location: [facility], [address] [place] [address], [id number], . -------- FINAL REPORT -------- Dictated By: Jcarlos Flores Dictated Date: 01/21/2025 12:05 ET Assigned Physician: Jcarlos Flores Reviewed and Electronically Signed By: Jcarlos Flores Signed Date: 01/21/2025 12:45 ET Workstation ID: [id number] Transcribed By: Self Edit Transcribed Date: 01/21/2025 12:42 ET us Nitesh Fitzpatrick MD IMG BI PROCEDURES Final Res ult * BD Bone Density DXA Axial w Vertebral Fx Asmt (09/27/2024 10:05 AM EDT) Anatomical Region Laterality Modality Body Bone Densitometr y 09/30/2024 8:40 AM EDT Impressions 09/30/2024 8:42 AM EDT Normal bone mineral density by WHO criteria. [facility] Department of Internal Medicine recommends using National Osteoporosis Foundation (NOF) guidelines in treatment decisions related to osteoporosis. NOF guidelines suggest considering treatment for postmenopausal women and men aged 50 or older presenting with the following: History of hip or vertebral fracture. T-score = -2.5 (DXA) at the femoral neck, total hip, or spine, after appropriate evaluation to exclude secondary causes. Low bone mass (T-score between -1.0 and -2.5 at the femoral neck or spine) AND a 10-year probability of a hip fracture = 3% OR a 10-year probability of a major osteoporosis-related fracture = 20% based on the [place]-adapted WHO algorithm Please note that all treatment decisions require clinical judgment and consideration of individual patient factors, including patient preferences, co-morbidities, previous drug use, risk factors not captured in the FRAX model (e.g., frailty, falls, vitamin D deficiency, increased bone turnover, interval significant decline in bone density) and possible under- or over-estimation of fracture risk by FRAX. Optional alternative screening schedule based on bear Wu., [facility] April 07, 2011 for patients with osteopenia (based on hip BMD T-score) is as follows: * advanced osteopenia (T scores -2.00 to -2.49), BMD testing every year * moderate osteopenia (T scores -1.50 to -1.99), BMD testing every 5 years mild osteopenia or normal BMD (T scores -1.50 and higher), BMD testing every 15 years -------- FINAL REPORT -------- Dictated By: Cait Mccurdy Dictated Date: 09/30/2024 08:40 ET Assigned Physician: Cait Mccurdy Reviewed and Electronically Signed By: Cait Mccurdy Signed Date: 09/30/2024 08:42 ET Workstation ID: [id number] Transcribed By: Self Edit Transcribed Date: 09/30/2024 08:40 ET Narrative 09/30/2024 8:42 AM EDT BONE DENSITY SCAN (DEXA) FINDINGS: Lumbar Spine T-score is -0.1. (SD relative to 20-29 y/o adult) Z-score is 1.7. (SD relative to age matched peers) This is considered normal by WHO criteria. Left Hip T-score is -0.2. Z-score is 1.0. This is considered normal by WHO criteria. Comparison: None. Lateral survey view of the thoracolumbar spine shows no significant compression deformities. Procedure Note Cait Mccurdy MD - 09/30/2024 BONE DENSITY SCAN (DEXA) FINDINGS: Lumbar Spine T-score is -0.1. (SD relative to 20-29 y/o adult) Z-score is 1.7. (SD relative to age matched peers) This is considered normal by WHO criteria. Left Hip T-score is -0.2. Z-score is 1.0. This is considered normal by WHO criteria. Comparison: None. Lateral survey view of the thoracolumbar spine shows no significantcompression deformities. IMPRESSION: Normal bone mineral density by WHO criteria. [facility] Department of Internal Medicine recommendsusing National Osteoporosis Foundation (NOF) guidelines in treatmentdecisions related to osteoporosis. NOF guidelines suggest consideringtreatment for postmenopausal women and men aged 50 or older presentingwith the following: History of hip or vertebral fracture. T-score = -2.5 (DXA) at the femoral neck, total hip, or spine, afterappropriate evaluation to exclude secondary causes. Low bone mass (T-score between -1.0 and -2.5 at the femoral neck or spine)AND a 10-year probability of a hip fracture = 3% OR a 10-year probabilityof a major osteoporosis-related fracture = 20% based on the [place]-adapted WHOalgorithm Please note that all treatment decisions require clinical judgment andconsideration of individual patient factors, including patientpreferences, co-morbidities, previous drug use, risk factors not capturedin the FRAX model (e.g., frailty, falls, vitamin D deficiency, increasedbone turnover, interval significant decline in bone density) and possibleunder- or over-estimation of fracture risk by FRAX. Optional alternative screening schedule based [facility] bear Wu., [facility] for patients with osteopenia (based on hip BMD T-score)is as follows: * advanced osteopenia (T scores -2.00 to -2.49), BMD testing every year * moderate osteopenia (T scores -1.50 to -1.99), BMD testing every 5years mild osteopenia or normal BMD (T scores -1.50 and higher), BMD testingevery 15 years -------- FINAL REPORT -------- Dictated By: Cait Mccurdy Dictated Date: 09/30/2024 08:40 ET Assigned Physician: Cait Mccurdy Reviewed and Electronically Signed By: Cait Mccurdy Signed Date: 09/30/2024 08:42 ET Workstation ID: [id number] Transcribed By: Self Edit Transcribed Date: 09/30/2024 08:40 ET us Nitesh Fitzpatrick MD IMG DXA PROCEDURES Final Re sult * Microalbumin creatinine urine ratio (09/17/2024 2:17 PM EDT) Creatinine, Urine 161.0 mg/dL LAB CHEMISTRY METHOD 09/17/2024 7:35 PM EDT [facility] Microalb, Ur 13.2 0.0 - 29.0 mg/L LAB CHEMISTRY METHOD 09/17/2024 7:35 PM EDT [facility] Microalb/Creat Ratio 8 <30 mg/g creat LAB CHEMISTRY METHOD 09/17/2024 7:35 PM EDT [facility] Urine Urine specimen obtained by clean catch procedure / Unknown Non-blood Collection / Unknown 09/17/2024 2:17 PM EDT 09/17/2024 2:17 PM EDT us Nitesh Fitzpatrick MD LAB URINE ORDERABLES Final Result [facility] [address] [place] [address], [place] [phone] * Comprehensive metabolic panel (09/17/2024 2:17 PM EDT) Sodium 140 133 - 145 mmol/L LAB CHEMISTRY METHOD 09/17/2024 5:47 PM EDT [facility] Potassium 4.6 3.5 - 5.5 mmol/L LAB CHEMISTRY METHOD 09/17/2024 5:47 PM EDT [facility] Chloride 106 96 - 110 mmol/L LAB CHEMISTRY METHOD 09/17/2024 5:47 PM EDT [facility] CO2 31 21 - 32 mmol/L LAB CHEMISTRY METHOD 09/17/2024 5:47 PM [facility] Anion Gap 3 3 - 11 LAB CHEMISTRY METHOD 09/17/2024 5:47 PM [facility] Glucose 84 70 - 100 mg/dL LAB CHEMISTRY METHOD 09/17/2024 5:47 PM [facility] BUN 13 5 - 25 mg/dL LAB CHEMISTRY METHOD 09/17/2024 5:47 PM [facility] Creatinine 0.94 0.50 - 1.10 mg/dL LAB CHEMISTRY METHOD 09/17/2024 5:47 PM [facility] eGFR 67 >=60 mL/min/1. 73m2 LAB CHEMISTRY METHOD 09/17/2024 5:47 PM [facility] Comment:Calculation based on the Chronic Kidney Disease Epidemiology Collaboration (CKD-EPI) equation refit without adjustment for race. BUN/Creatinine Ratio 13.8 LAB CHEMISTRY METHOD 09/17/2024 5:47 PM [facility] Calcium 9.2 8.5 - 10.5 mg/dL LAB CHEMISTRY METHOD 09/17/2024 5:47 PM [facility] AST (SGOT) 32 10 - 42 unit/L LAB CHEMISTRY METHOD 09/17/2024 5:47 PM [facility] ALT (SGPT) 51 10 - 60 unit/L LAB CHEMISTRY METHOD 09/17/2024 5:47 PM [facility] Alkaline Phosphatase 97 42 - 121 unit/L LAB CHEMISTRY METHOD 09/17/2024 5:47 PM [facility] Total Protein 6.9 6.0 - 8.0 g/dL LAB CHEMISTRY METHOD 09/17/2024 5:47 PM [facility] Albumin 3.4 3.2 - 5.0 g/dL LAB CHEMISTRY METHOD 09/17/2024 5:47 PM [facility] Total Bilirubin 0.6 0.0 - 1.4 mg/dL LAB CHEMISTRY METHOD 09/17/2024 5:47 PM EDT [facility] Blood Venous blood specimen / Unknown Venipuncture / Unknown 09/17/2024 2:17 PM EDT 09/17/2024 2:17 PM EDT Nitesh Fitzpatrick MD LAB BLOOD ORDERABLES Final Result [facility] [address] [place] [address], * (ABNORMAL) Lipid panel (06/12/2023) LDL/HDL Ratio 3 0 - 4 Triglycerides 138 0 - 150 mg/dL Cholesterol 204(A) 0 - 200 mg/dL HDL 63 >=40 mg/dL LDL Cholesterol 114(A) 0 - 100 mg/dL Blood Venous blood specimen / Unknown Historical Provider LAB BLOOD ORDERABLES Kristel l Result * Colonoscopy (12/15/2022) Colonoscopy No Interpretation , Abstracted Anatomical Region Laterality Modality Other Historical [facility] [employer] Final Result * Hepatitis C Screening (09/11/2012) Pathologist [facility] Hepatitis C Screening Abstracted Historical [facility] [employer] Final Result from Last 3 Months or Most Recently Relevant to Health Maintenance Insurance [facility] MEDICARE Member Subscriber Plan / Payer (Ef fective 2018-Present) Name:Lina Kauffman Relation to Subscriber:Self Name:Lina Kauffman Payer ID:[id number] Group ID:[id number] Type:Not on file Address: [place] [address] [address] [id number] Care Teams Cassandra Consultant Relationship Specialty Start Date End Date Nitesh Fitzpatrick MD [address] [place] [address] PCP - General Internal Medicine 06/29/21
--- OUTSIDE RECORDS SUMMARY | 2025-02-04 04:42 | XMS_ITS | Encounter Summary ---
Author Organization [facility] Address [address] [place] [address] Phone Care Team Providers Care Lye Bath Operator Name Role Phone Bettina Aguiar MD Primary Care Provider [phone]- [phone] Encounter Details Date Type Department Care Team (Late Contact Info) Description 02/17/2022 Documentation Only [facility] [address] [place] [address] Tish Miguel PA [address] [place] [address] Social History Tobacco Use Types [...] Visit [facility] [address] [place] [address] Stef Wright MD [address] [place] [address] documented as of this encounter Visit Diagnoses Not on filedocumented in this encounter Care Teams Lye Bath Operator Relationship Specialty Start Date End Date Bettina Aguiar MD PCP - General 01/22/19 documented as of this encounter
--- OUTSIDE RECORDS SUMMARY | 2025-02-04 04:43 | XMS_ITS | Encounter Summary ---
Author Organization [facility] Address [address] [place] [address] Phone Care Team Providers Care Tool And Machine Maintainer Name Role Phone Bettina Aguiar MD Primary Care Provider +1- [phone] Encounter Details Date Type Department Care Team (Late Contact Info) Description 05/03/2023 Documentation Only [facility] [address] [place] [address] Mariana Lomeli [address] [place] [phone] Social History Tobacco Use Types Packs/Day [...] Visit [facility] [address] [place] [address] Stef Wright MD [address] [facility] [place] [address] documented as of this encounter Visit Diagnoses Not on filedocumented in this encounter Care Teams Tool And Machine Maintainer Relationship Specialty Start Date End Date Bettina Aguiar MD PCP - General 01/22/19 documented as of this encounter
--- OUTSIDE RECORDS SUMMARY | 2025-02-04 04:43 | XMS_ITS | Encounter Summary ---
Author Organization [facility] Address [address] [place] [address] Care Team Providers Care Head Start Teacher Name Role Phone Nitesh Fitzpatrick MD Primary Care Provider [phone] [phone] Reason for Visit * Reason Onset Date Comments Fitting for DME 01/08/2025 Encounter Details Date Type Department Care Team (Late st Contact Info) Description 01/08/2025 Telephone Adult Medicine [address] [phone] Nitesh Fitzpatrick MD [address] [place] [address] Social History Tobacco Use Types Packs/Day Years [...] care for your loved ones. For example, home care specialist or elderly care for an older [...] as of this encounter Progress Notes * Heather Ruiz - 01/08/2025 10:31 AM EDT DME REQUEST Name of Product: Compression stockings Specific information about product unsure of compression number # Needed 2 pairs Reason patient is asking for this supply? edema Have you received this supply before? If yes , when?: Yes. Unsure, needs replacements Have you discussed the need for this supply with a provider at a recent visit? If yes, with who andwhen? Yes. Caller unsure When completed: Fax to other office/MD/pharmacy at fax # Alycia [phone] Who is requested? [facility] Is this a fax request? Have you told the patient it will take 7-10 days for completion of this request? Yes documented in this encounter Plan of Treatment Upcoming Encounters Date Type Department Care Team (Late st Contact Info) Description 02/07/2025 10:30 AM EST Office Visit Bariatric Surgery - [place] [address] [facility] [address] [place] [address] Lachelle Dill MD [address] [place] [phone] 06/06/2025 11:30 AM EDT Office Visit Adult Medicine [facility] [place] [address] [place], [place] [phone] Nitesh Fitzpatrick MD [address] [place] [address] 06/10/2025 1:00 PM EDT Office Visit Pulmonology - [place] [address] [facility] 200 [place] [phone] Harini Bose MD [address] [place] [phone] documented as of this encounter Goals Goal [...] documented as of this encounter Care Teams Head Start Teacher Relationship Specialty Start Date End Date Nitesh Fitzpatrick MD [address] [place] [address] PCP - General Internal Medicine 06/29/21 documented as of this encounter
--- OUTSIDE RECORDS SUMMARY | 2025-02-04 04:43 | XMS_ITS | Encounter Summary ---
Author Organization [facility] Address [address] [place] [address] Care Team Providers Care Specimen Boss Name Role Phone Nitesh Fitzpatrick MD Primary Care Provider [phone] Reason for Visit * Reason Onset Date Comments Med Refill 01/31/2025 Zepbound Encounter Details Date Type Department Care Team (Late st Contact Info) Description 01/31/2025 Telephone Bariatric Surgery - [place] [address] [facility] [address] [place] [phone] Jason Nair MD [address] [place] [phone] Social History Tobacco Use Types Packs/Day Years [...] your loved ones. For example, child care sitter or elderly care for an older adult? [...] encounter Progress Notes * April Bennett - 01/31/2025 11:21 AM EST Patient did well on Zepbound 10 mgs and would like a refill with titration. If appropriate, please send script for Zepbound 12.5 mgs to their pharmacy. The patient does have a follow up in 02/07/2025 documented in this encounter Plan of Treatment Upcoming Encounters Date Type Department Care Team (Late st Contact Info) Description 02/07/2025 10:30 AM EST Office Visit Bariatric Surgery - [place] [address] [facility] 120 [place] [phone] Lachelle Dill MD [address] [place] [phone] 06/06/2025 11:30 AM EDT Office Visit Adult Medicine [facility] [address] [place] [address] Nitesh Fitzpatrick MD [address] [place] [phone] 06/10/2025 1:00 PM EDT Office Visit Pulmonology - [place] [address] [facility] 200 [place] [phone] Harini Bose MD [address] [place] [phone] documented as of this encounter Goals Goal [...] documented as of this encounter Care Teams Specimen Boss Relationship Specialty Start Date End Date Nitesh Fitzpatrick MD [address] [place] [address] PCP - General Internal Medicine 06/29/21 documented as of this encounter
--- OUTSIDE RECORDS SUMMARY | 2025-02-04 04:44 | XMS_ITS | Encounter Summary ---
Author Organization [facility] Address [address] [place] [address] Care Team Providers Care Budget Specialist Name Role Phone Nitesh Fitzpatrick MD Primary Care Provider [phone] Reason for Visit * Reason Onset Date Comments Weight Check 01/31/2025 Weight check 199 .6lbs Encounter Details Date Type Department Care Team (Late st Contact Info) Description 01/31/2025 Telephone Bariatric Surgery - [place] [address] [facility] [address] [place] [address] Jason Nair MD [address] [place] [phone] Social History Tobacco Use Types Packs/Day [...] ed Within the last 3 months, ho hector many times did you visit the emergency [...] for your loved ones. For example, child day care teacher or elderly care for an older [...] Progress Notes * April Bennett - 01/31/2025 11:22 AM EST Patient came for bariatric weight check 199.6 lbs documented in this encounter Plan of Treatment Upcoming Encounters Date Type Department Care Team (Late st Contact Info) Description 02/07/2025 10:30 AM EST Office Visit Bariatric Surgery - [place] [address] [facility] 120 [place] [address] Lachelle Dill MD 230 [place] [phone] 06/06/2025 11:30 AM EDT Office Visit Adult Medicine [facility] [address] [place], [place] [phone] Nitesh Fitzpatrick MD [address] [place] [address] 06/10/2025 1:00 PM EDT Office Visit Pulmonology - [place] [address] [facility] 200 [place] [phone] Harini Bose MD 230 [place] [phone] documented as of this encounter Goals Goal [...] documented as of this encounter Care Teams Budget Specialist Relationship Specialty Start Date End Date Nitesh Fitzpatrick MD [address] [place] [address] PCP - General Internal Medicine 06/29/21 documented as of this encounter
--- OUTSIDE RECORDS SUMMARY | 2025-02-04 04:44 | XMS_ITS | Encounter Summary ---
Author Organization [facility] Address [address] [place] [address] Care Team Providers Care Maritime Pilot Name Role Phone Nitesh Fitzpatrick MD Primary Care Provider [phone] Encounter Details Date Type Department Care Team (Late st Contact Info) Description 01/21/2025 Results Follow-Up Adult Medicine [address] [phone] Nitesh Fitzpatrick MD [address] [place] [address] Social History Tobacco Use Types Packs/Day Years [...] for your loved ones. For example, child protective services social worker or elderly care for an older [...] AM EST Office Visit Bariatric Surgery - [address] [place] [address] Lacehlle Dill MD [address] [place] [address] 06/06/2025 11:30 AM EDT Office Visit Adult Medicine [facility] [address] [place], [place] [phone] Nitesh Fitzpatrick MD [address] [place], [place] 06/10/2025 1:00 PM EDT Office Visit Pulmonology - [place] [address] [facility] [address] [place] [phone] Harini Bose MD 230 [place] [address] documented as of this encounter [...] documented as of this encounter Care Teams Maritime Pilot Relationship Specialty Start Date End Date Nitesh Fitzpatrick MD [address] [place] [address] PCP - General Internal Medicine 06/29/21 documented as of this encounter
--- OUTSIDE RECORDS SUMMARY | 2025-02-04 04:45 | XMS_ITS | Clinical Summary ---
Author Organization [facility] [place], Address [address] [place] [address] [place] [address] Phone Care Team Providers Care Valve And Regulator Repairer Name Role Phone Bettina Aguiar MD Primary Care Provider +1- [phone] Allergies Active Allergy Reactions Criticality Noted Date [...] 99%. For the entire study, PLMs ~37. [facility] Polysomnogram treatment study. Date 04/14/2019. Wt [...] Encounters Date Type Department Care Team Description 12/03/2024 Orders Only [facility] [place] [address] [place] [address] Danielle Gisela Type 2 diabetes mellitus without complication (HCC) (Primary Dx); Chronic kidney disease stage 2; Vitamin D deficiency, not otherwise specified; Iron deficiency anemia, not otherwise specified from Last 3 Months Immunizations Immunization Administration Dates Next Due Influenza Split High [...] Visit [facility] [place], [address] [facility] [place] [address] Stef Wright MD [address] [facility] [place] [address] Health Maintenance Due Date Last Done Comments Breast Cancer Screening 1960 Pneumococcal Vaccine: 50+ Ye ars (1 of 2 - PCV) 05/24/1978 01/09/2023 Colorectal Cancer Screening: Annual FOBT 05/24/2008 Colorectal Cancer Screening: Colonoscopy 05/24/2008 Colorectal Cancer Screening: Sigmoidoscopy 05/24/2008 Hepatitis B Vaccine (1 of 3 - Risk 3-dose series) 2019 Diabetes: Ophthalmology Exam 02/21/2022 Diabetes: Pedal Pulse Checked 02/21/2022 Diabetes: Sensory Foot Exam 02/21/2022 Diabetes: Visual Foot Exam 02/21/2022 Influenza Vaccine (#1) 2024 0, 01/22/2020, 02/07/2019, Additional history exists Diabetes: Hemoglobin A1C 03/04/2025 025, 09/17/2024, 09/17/2024, Additional history exists Pneumococcal Vaccine: Peds ( 0 to 5 Years) and At-Risk Patients (6 to 49 Years) Discontinued 01/09/2023 Procedures Procedure Name Priority Date/Time Associated Diagnosis Comments HEMOGLOBIN A1C Routine 12/03/2024 1:53 PM EDT Type 2 diabetes mellitus without complication (HCC) IRON PANEL (FE, TIBC, TSAT) Routine 12/03/2024 1:53 PM EDT Iron deficiency anemia, not otherwise specified PROTEIN / CREATININE RATIO, URINE Routine 12/03/2024 1:53 PM EDT Chronic kidney disease stage 2 VITAMIN D 25 HYDROXY Routine 12/03/2024 1:53 PM EDT Vitamin D deficiency, not otherwise specified URINALYSIS WITH MICROSCOPIC Routine 12/03/2024 1:53 PM EDT Chronic kidney disease stage 2 RENAL FUNCTION PANEL Routine 12/03/2024 1:53 PM EDT Chronic kidney disease stage 2 CBC AND DIFFERENTIAL Routine 12/03/2024 1:53 PM EDT Chronic kidney disease stage 2 MICROSCOPIC EXAMINATION - DO NOT USE Routine 12/03/2024 1:53 PM EDT from Last 3 Months Results * Microscopic Examination (12/03/2024 1:53 PM EDT) WBC, Urine None seen 0 - 5 /hpf [facility] RBC, Urine None seen 0 - 2 /hpf [facility] Squamous Epithelial, Urine 0-10 0 - 10 /hpf [facility] Casts None seen None seen /lpf [facility] Bacteria, Urine Few None seen/Few [facility] 12/03/2024 1:53 PM EDT 12/03/2024 us Stef Wright MD LAB MICROBIOLOGY - GENERAL ORDER VITOR Final Result [facility] [address] [place] [address] * Iron Panel (Fe, TIBC, TSAT) (12/03/2024 1:53 PM EDT) TIBC 308 250 - 450 ug/dL [facility] UIBC 213 118 - 369 ug/dL [facility] Iron 95 27 - 139 ug/dL [facility] Iron Saturation (TSat) 31 15 - 55 % [facility] Blood Venous blood / Unknown 12/03/2024 1:53 PM EDT 12/03/2024 us Stef Wright MD LAB BLOOD ORDERABLES Final Resul t [facility] [address] [place] [address] * Urine Protein / creatinine ratio (12/03/2024 1:53 PM EDT) Creatinine, Ur 205.0 Not Estab. mg/dL [facility] Protein, Ur 21.9 Not Estab. mg/dL [facility] Urine Protein/Creatin ine Ratio 107 0 - 200 mg/g creat [facility] Urine Urine specimen obtained by clean catch procedure / Unknown 12/03/2024 1:53 PM EDT 12/03/2024 us Stef Wright MD LAB URINE ORDERABLES Final Resul t Performing Organization Address City/[facility]/ZIP Co de Phone Number [facility] [address] [place] [address] * Vitamin D 25 hydroxy (12/03/2024 1:53 PM EDT) Vitamin D, 25-OH, Total 31.6 30.0 - 100.0 ng/mL [facility] Comment: Vitamin D deficiency has been defined by the [place] of Medicine and an Endocrine Society practice guideline as a level of serum 25-OH vitamin D less than 20 ng/mL (1,2). The Endocrine Society went on to further define vitamin D insufficiency as a level between 21 and 29 ng/mL (2). 1. IOM ([place] of Medicine). 2010. Dietary reference intakes for calcium and D. [place]: The National Academies Press. 2. Louise MENDEZ, Telly AL, Bay CLEMENTS, et al. Evaluation, treatment, and prevention of vitamin D deficiency: an Endocrine Society clinical practice guideline. JCEM. 2010; 96(7):1911-30. Blood Venous blood / Unknown 12/03/2024 1:53 PM EDT 12/03/2024 us Stef Wright MD LAB BLOOD ORDERABLES Final Resul t [facility] [address] [place] [address] * (ABNORMAL) Urinalysis with microscopic (12/03/2024 1:53 PM EDT) Specific Ramsey, Urine 1.022 1.005 - 1.030 [facility] pH Urine 7.0 5.0 - 7.5 [facility] Color, Urine Yellow Yellow [facility] [phone] Appearance Urine Clear Clear [facility] [phone] WBC Esterase Urine Negative Negative [facility] [phone] Protein, Ur 1+(A) Negative/Tra ce [facility] Glucose, Ur Negative Negative [facility] [phone] Ketones, Urine Trace(A) Negative [facility] Blood Urine Negative Negative [facility] [phone] Bilirubin Urine Negative Negative [facility] Urobilinogen Urine 1.0 0.2 - 1.0 mg/dL [facility] [phone] Nitrite, Urine Negative Negative [facility] Microscopic Examination See below: [facility] Comment:Microscopic was uma cated and was performed. Urine Urine specimen obtained by clean catch procedure / Unknown 12/03/2024 1:53 PM EDT 12/03/2024 us Stef Wright MD LAB URINE ORDERABLES Final Resul t [facility] [address] [place] [address] * CBC and differential (12/03/2024 1:53 PM EDT) [facility] WBC 6.7 3.4 - 10.8 x10E3/uL [facility] RBC 4.96 3.77 - 5.28 x10E6/uL [facility] Hemoglobin 14.3 11.1 - 15.9 g/dL [facility] Hematocrit 44.7 34.0 - 46.6 % [facility] MCV 90 79 - 97 fL [facility] MCH 28.8 26.6 - 33.0 pg [facility] MCHC 32.0 31.5 - 35.7 g/dL [facility] RDW 12.4 11.7 - 15.4 % [facility] Platelets 261 150 - 450 x10E3/uL [facility] Neutrophils Relative 61 Not Estab. % [facility] Lymphocytes Relative 28 Not Estab. % [facility] Monocytes 7 Not Estab. % [facility] Eosinophils Relative 3 Not Estab. % [facility] Basophils Relative 1 Not Estab. % [facility] Neutrophils Absolute 4.1 1.4 - 7.0 x10E3/uL [facility] Lymphocytes Absolute 1.9 0.7 - 3.1 x10E3/uL [facility] Monocytes Absolute 0.4 0.1 - 0.9 x10E3/uL [facility] Eosinophils Absolute 0.2 0.0 - 0.4 x10E3/uL [facility] Basophils Absolute 0.0 0.0 - 0.2 x10E3/uL [facility] Immature Granulocytes 0 Not Estab. % [facility] Immature Grans (Absolute) 0.0 0.0 - 0.1 x10E3/uL [facility] Blood Venous blood / Unknown 12/03/2024 1:53 PM EDT 12/03/2024 Stef Wright MD LAB BLOOD ORDERABLES Final Resul t [facility] [address] [place] [address] * Hemoglobin A1c (12/03/2024 1:53 PM EDT) Hemoglobin A1C 5.3 4.8 - 5.6 % [facility] Comment: Prediabetes: 5.7 - 6.4 Diabetes: >6.4 Glycemic control for adults with diabetes: <7.0 Blood Venous blood / Unknown 12/03/2024 1:53 PM EDT 12/03/2024 Stef Wright MD LAB BLOOD ORDERABLES Final Resul t Performing Organization Address City/[facility]/ZIP Co de Phone Number [facility] [address] [place] [address] * Renal function panel (12/03/2024 1:53 PM EDT) Glucose 79 70 - 99 mg/dL [facility] BUN 15 8 - 27 mg/dL [facility] Creatinine 0.99 0.57 - 1.00 mg/dL [facility] eGFR CKD-EPI CR 2020 63 >59 mL/min/1.7 3 [facility] BUN/Creatinine Ratio 15 12 - 28 [facility] Sodium 139 134 - 144 mmol/L [facility] Potassium 4.2 3.5 - 5.2 mmol/L [facility] Chloride 101 96 - 106 mmol/L [facility] Bicarbonate (CO2) 24 20 - 29 mmol/L [facility] Calcium 9.2 8.7 - 10.3 mg/dL [facility] Albumin 3.9 3.9 - 4.9 g/dL [facility] Phosphorus 3.6 3.0 - 4.3 mg/dL [facility] Blood Venous blood / Unknown 12/03/2024 1:53 PM EDT 12/03/2024 us Stef Wright MD LAB BLOOD ORDERABLES Final Resul t [facility] [address] [place] [address] from Last 3 Months Insurance [facility] One [employer] Dual 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
== END 2025-02-03 14:25 | disposition home or self-care (01) ==
LOC: HO.HKASLDS 14:24
PROVIDERS: PCP Internal Medicine; Visit Provider Student in an Organized Health Care Education/Training Program
DX: M05.9 Rheumatoid arthritis with rheumatoid factor, unspecified (principal); Z79.899 Other long term (current) drug therapy
CPT/HCPCS: 36415; 80053; 85025; 85652; 86140

== ENCOUNTER 2025-02-06 10:48 | Outpatient (AMB) | payer OTHER, SELFPAY ==
--- NOTE | 2025-02-06 11:32 | A.OFFVIS_ITS ---
Vital Signs 02/06/25 11:42 Height 5 ft 4 in Weight 200 lb 13.458 oz BMI 34.5 BP 124/72 Blood Pressure Location Lt brachial Position Sitting Pulse 76 Pulse Source Pulse Oximeter Pulse Oximetry (%) 98 Oxygen Delivery Method Room Air Intake Visit Reasons: RA Intake Note: Patient presents for RA follow up. Allergies lisinopril Allergy (Unknown, Verified 02/06/25 11:41) cough morphine Allergy (Unknown, Verified 02/06/25 11:41) palpitations Medication List - Last Reconciled 02/06/25 by Deirdre Chávez MD cetirizine 10 mg PO DAILY cholecalciferol (vitamin D3) 25 mcg PO DAILY cyanocobalamin (vitamin B-12) 1,000 mcg PO DAILY cyclosporine 0.05% (Restasis MultiDose) drps ophthalmic (eye) diclofenac sodium 1% 1 - 2 grams topical QID duloxetine 20 mg PO BID etanercept (Enbrel SureClick) 50 mg subcut QWEEK hydroxychloroquine (Plaquenil) 200 mg PO BID lorazepam 0.5 mg PO DAILY PRN losartan 12.5 mg PO DAILY meloxicam 15 mg PO DAILY PRN metformin 500 mg PO QAM mirabegron ER (Myrbetriq) 25 mg PO DAILY abxgvpmd-mjbguo-JR-thonzonium 3.3-3-10-0.5 mg/mL (Cortisporin-TC) 4 drps otic (ear) left TID oxybutynin chloride ER 15 mg PO DAILY tirzepatide (weight loss) (Zepbound) 5 mg subcut QWEEK zolpidem 5 mg PO BEDTIME HPI Comments Details: Patient is a 64-year-old female with hypertension, type 2 diabetes, depression, GERD, psoriasis and seropositive rheumatoid arthritis here today for follow up Interval History: Patient last seen 10/10/24 with me - On Enbrel 50mg SC every week, Hydroxychloroquine 200mg bid, Meloxicam 15mg prn - Doing better overall - Shoulders improved after injection - C/o of knee pain L>R - Received left pes anserine bursa injection Today - On Enbrel 50mg SC every week, Hydroxychloroquine 200mg bid, Meloxicam 15mg prn - The injection did not help for the knee bursitis, still complaining of left knee pain - Shoulders still doing well Rheumatologic History: Seropositive rheumatoid arthritis Given penicillin prophylaxis for acute rheumatic fever until age 12(in [place]) Onset RA 2001. ++RF+++CCP On Enbrel since 2003 effective. Was on Humira for short period of time, was not effective Current Rheumatology Medication(s): Enbrel 50mg SC weekly Meloxicam 15mg prn Plaquenil 200mg bid PFSH Family History (Updated 06/05/24 @ 10:55 by PAOLA Singh) Daughter Liver disease Social History Household Members Other:: lives alone Housing: Apartment Are you a primary care partner to a significant other at home: No Do you presently have visiting nurse or other home services: No 75 years or older and lives alone: No Alcohol intake: never Patient Tobacco Use Status: Never used Tobacco e-Cigarette/Vaping Use: Never Used service: No Current occupational status: disabled Review of Systems Narrative Review of Systems Constitutional: Denies fever, chills, weight loss ENT: Denies vision changes, eye pain or eye redness, dental caries, dry mouth GI: Denies nausea, vomiting, diarrhea, abdominal pain, change in BM Pulm: Denies SOB, VEGA, hemoptysis, wheezing Cards: Denies chest pain, palpitations Skin: Denies Raynaud's, rash, nail changes, photosensitivity, PRODUCTION GENERALIST: Denies headaches, weakness, paresthesias, recurrent falls MSK: as per HPI All other systems reviewed and are unremarkable except noted above Physical Exam Exam Exam: Vital signs reviewed Physical Examination CONSTITUITIONAL Patient alert and cooperative. Well appearing and in no apparent painful distress MSK Hands * Right Hand: Able to make a fist. No swelling or tenderness to palpation of the MCPs, PIPs or DIPs. * Left Hand: Able to make a fist. No swelling or tenderness to palpation of the MCPs, PIPs or DIPs. * Herbedens nodes noted bilaterally Wrists * Right Wrist: Full ROM to flexion and extension. No swelling or TTP * Left Wrist: Full ROM to flexion and extension. No swelling or TTP Elbows * Right Elbow: Full ROM. No swelling or TTP. No TTP of the medial epicondyle. No TTP of the lateral epicondyle * Left Elbow: Full ROM. No swelling or TTP. No TTP of the medial epicondyle. No TTP of the lateral epicondyle Shoulders * Right shoulder: Slightly decreased ROM. No swelling noted. No TTP of the AC joint. No TTP of the subacromial bursa. No TTP of the posterior shoulder * Left shoulder: Slightly decreased ROM. No swelling noted. No TTP of the AC joint. No TTP of the subacromial bursa. No TTP of the posterior shoulder Knees * Right knee: Full ROM. No swelling noted. No TTP of the knee joint line. No TTP of pes anserine bursa * Left knee: Full ROM. No swelling noted. No TTP of the knee joint line. TTP of pes anserine bursa. Ankles * Right ankle: Good ankle dorsiflexion and plantar flexion. No swelling. No TTP of the ankle joint * Left ankle: Good ankle dorsiflexion and plantar flexion. No swelling. No TTP of the ankle joint Feet * Right foot: Negative squeeze test * Left foot: Negative squeeze test Tender points? * No tenderness to palpation of the bilateral trapezius, supraspinatus, anterior costochondral junctions, bilateral suboccipital muscle insertions SKIN No rashes Results Reviewed Results Reviewed: Laboratory Tests 05/31/24 02/03/25 13:33 14:31 WBC 5.8 RBC 4.82 Hgb 13.7 Hct 42.5 Plt Count 258 ESR 11 24 H Sodium 141 Potassium 3.9 Chloride 105 Carbon Dioxide 28 BUN 16 Creatinine 0.80 AST 22 68 H ALT 26 93 H C-Reactive Protein 0.44 0.35 XR Shoulder Right 12/2024 Findings: There is no displaced fracture. Mild degenerative change. The alignment is anatomic. No soft tissue abnormality seen. Impression: No acute osseous abnormality XR Bilateral Hands and Wrists 12/2024 Findings: Left hand - there is no displaced fracture. The alignment is anatomic. No soft tissue abnormalities is seen Left wrist - there was no displaced fracture. The alignment is anatomic. No soft tissue abnormality seen Right hand - there was no displaced fracture. Mild degenerative change. The alignment is anatomic. No soft tissue abnormality is seen Right wrist - there was no displaced fracture. The alignment is anatomic. No soft tissue abnormality seen Impression: No osseous abnormalities XR Bilateral Knees 12/2024 Findings: Right knee - there is no displaced fracture. Kqkm-rv-giwwtvmz tricompartmental degenerative change. The alignment is anatomic. No soft tissue abnormality seen. There is no joint effusion. Left knee: There is no displaced fracture. The alignment is anatomic. No soft tissue abnormality seen. There is no joint effusion Impression: No acute findings XR Left Shoulder 12/2024 Findings: Left shoulder - there is no displaced fracture. Mild degenerative change. The alignment is anatomic. No soft tissue abnormality seen. Assessment & Plan Assessment & Plan (1) Seropositive rheumatoid arthritis: Comment: Given penicillin prophylaxis for acute rheumatic fever until age 12(in [place]) Onset RA 2001. ++RF+++CCP On Enbrel since 2003 effective. Was on Humira for short period of time, was not effective Code(s): M05.9 - Rheumatoid arthritis with rheumatoid factor, unspecified Category: Medical Plan: #Seropositive RA Patient is a 64-year-old female with seropositive rheumatoid arthritis currently on Enbrel and plaquenil. No active synovitis on exam today Plan - Plaquenil 200 mg p.o. b.i.d. - Continue Enbrel 50 mg weekly SC - Hold Meloxicam in the setting of elevated AST/ALT - RTC 6 months - Labs before visit: CBC, CMP, ESR, CRP (2) Generalized osteoarthritis: Code(s): M15.9 - Polyosteoarthritis, unspecified Plan: #Generalized OA AC joints doing better after injection Knee pain is related to pes anserine bursitis Still with persistent knee pain despite steroid injection, PT, NSAIDs (meloxicam) XRs show OA Will check MRI to eval for meniscal injuries or other soft tissue rheumatisms (3) Encounter for monitoring of etanercept therapy: Code(s): Z51.81 - Encounter for therapeutic drug level monitoring; Z79.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 immunosuppressive biologic Plan: #Long-term Use of TNF Inhibitors: Etanercept Discussed with the patient the benefits and risks of TNF inhibitors for the management of the rheumatic condition Benefits include reduce pain, maintenance of remission and reduction of flares as well as ?progression of the disease Risks include injection sites/infusion reactions, serious infections (such as bacterial infections, opportunistic infections), malignancy, delaminating syndromes, autoimmune phenomena, CHF exacerbations, palmar plantar psoriasis and cytopenias Recommended rotating injection sites, and holding medication during and for up to 1 week after resolution of a febrile illness or open skin wound (4) Encounter for monitoring of hydroxychloroquine therapy: Code(s): Z51.81 - Encounter for therapeutic drug level monitoring; Z79.899 - Other intermediate school teacher (current) drug therapy Plan: #Long-term Use of Hydroxychloroquine Discussed with patient the risks and benefits of hydroxychloroquine in managing the rheumatic condition Benefits include: - Reduced pain, reduce mortality, maintenance of remission and reduction of flares Risks include: - GI upset, skin hyperpigmentation, retinal toxicity (especially after more than 5 years of use), myopathy Advised yearly ophthalmology visits Plan I spent 30 minutes reviewing the record and labs, taking a history, examining the patient, discussing the treatment plan, ordering diagnostic work up and documenting in the medical record Orders: Orders MR knee LT wo con Today M25.562 - Pain in left knee Comprehensive Met. Panel 4 Weeks Z79.899 - Other intermediate school teacher (current) drug therapy Complete Blood Count Auto Diff 6 Months Z79.899 - Other intermediate (current) drug therapy Comprehensive Met. Panel 6 Months Z79.899 - Other intermediate school teacher (current) drug therapy C Reactive Protein 6 Months Z79.899 - Other intermediate (current) drug therapy Erythrocyte Sedimentation Rate 6 Months Z79.899 - Other intermediate (current) drug therapy Medications: Refilled hydroxychloroquine (Plaquenil) 200 mg PO BID 90 tabs 1RF M05.9 - Rheumatoid arthritis with rheumatoid factor, unspecified etanercept (Enbrel SureClick) 50 mg subcut QWEEK 4 mL 5RF M05.9 - Rheumatoid arthritis with rheumatoid factor, unspecified On Hold meloxicam Hold Comment: Doctor's Order 15 mg PO DAILY PRN 30 tabs 4RF rheuma art M05.9 - Rheumatoid arthritis with rheumatoid factor, unspecified Coding Level of Care Code Est Pt Level 4 (24356) Complex EM visit Add On G2211 Diagnoses Seropositive rheumatoid arthritis M05.9 Generalized osteoarthritis M15.9 Encounter for monitoring of etanercept therapy Z51.81; Z79.620 Encounter for monitoring of hydroxychloroquine therapy Z51.81; Z79.899
[2025-02-06 11:42] VITALS: BP 124/72; PULSE 76; O2SAT 98; BMI 34.5
--- OUTSIDE RECORDS SUMMARY | 2025-02-06 16:18 | XMS_ITS | Encounter Summary ---
Author Organization [facility] Address [address] [place] [address] Care Team Providers Care Logistician Name Role Phone Nitesh Fitzpatrick MD Primary Care Provider [phone] Reason for Visit * Reason Onset Date Comments Fitting for DME 01/08/2025 Encounter Details Date Type Department Care Team (Late st Contact Info) Description 01/08/2025 Telephone Adult Medicine [address] [phone] Nitesh Fitzpatrick MD [address] [place] [address] Social History Tobacco Use Types Packs/Day Years [...] care for your loved ones. For example, vocational childcare teacher or elderly care for an older [...] completed: Fax to other office/MD/pharmacy at fax Jacqueline Tong [phone] Who is requested? [facility] Is this a fax request? Have you told the patient it will take 7-10 days for completion of this request? Yes documented in this encounter Plan of Treatment Upcoming Encounters Date Type Department Care Team (Late st Contact Info) Description 02/07/2025 10:30 AM EST Consult Bariatric Surgery - [place] [facility] [address] [place] [address] Lachelle Dill MD [address] [place] [phone] 02/11/2025 10:00 AM EST Office Visit Adult [address] [phone] Juan Manuel Quezada NP [address] [place] [address] 06/06/2025 11:30 AM EDT Office Visit [address] [phone] Nitesh Fitzpatrick MD [address] [place] [address] 06/10/2025 1:00 PM EDT Office Visit Pulmonology - [place] [facility] [address] [place] [address] Harini Bose MD [address] [place] [phone] documented as of this encounter Goals Goal [...] documented as of this encounter Care Teams Logistician Relationship Specialty Start Date End Date Nitesh Fitzpatrick MD [address] [place] [address] PCP - General Internal Medicine 06/29/21 documented as of this encounter
--- OUTSIDE RECORDS SUMMARY | 2025-02-06 16:18 | XMS_ITS | Clinical Summary ---
Author Organization [facility] [address] [facility] Address [address] [place] [address] Phone Care Team Providers Care Dietetic Tech Name Role Phone Nitesh Fitzpatrick MD Primary [...] microalbuminuria, without long-term current use of insulin ([facility] V24, [facility] V28) 05/27/2024 CKD (chronic kidney disease) stage 2, GFR 60-89 ml/min 05/27/2024 Insomnia 06/12/2023 Osteoarthritis of left knee 06/12/2023 Paresthesia 06/12/2023 Fatty liver 05/24/2022 Hemorrhoids 05/24/2022 Type 2 diabetes mellitus wit hout complication, without long-term current use of insulin ([facility] V24, [facility] V28) 05/24/2022 Right flank pain 02/22/2021 Vitamin [...] 99%. For the entire study, PLMs ~37. [facility] Polysomnogram treatment study. Date 04/14/2019. Wt [...] and depression 12/13/2011 Seropositive rheumatoid arth ritis ([facility] V24, [facility] V28) 09/22/2011 Overview (02/09/2024): Given penicillin prophylaxis for acute rheumatic fever until age 12 Onset 2001.RFpositive On Enbrel since 2003 Thyroid nodule 09/22/2011 Overview (02/09/2024): FNA 11/29; Ct's thyroid; FNA 11/30 BENIGN Encounters Date Type Department Care Team Description 01/31/2025 Telephone Bariatric Surgery [address] [phone] Jason Nair MD 01/31/2025 Telephone Bariatric Surgery [address] [phone] Jason Nair MD 01/29/2025 1:30 PM EST Office Visit Adult [address] [phone] Nitesh Fitzpatrick MD Type 2 diabetes mellitus with diabetic microalbuminuria, without long-term current use of insulin ([facility] V24, [facility] V28) (Primary Dx); Obesity (BMI 35.0-39.9 without comorbidity); Constipation, unspecified constipation type; CKD (chronic kidney disease) stage 2, GFR 60-89 ml/min; Seropositive rheumatoid arthritis ([facility] V24, [facility] V28); Thyroid nodule; Fatty liver; ROLY on CPAP; Anxiety and depression 01/21/2025 Results Follow-Up [address] [phone] Nitesh Fitzpatrick MD 01/17/2025 2:31 PM EDT - 01/17/2025 11:59 PM EDT Hospital Encounter Radiology Department - [address] [phone] Encounter for screening mammogram for malignant neoplasm of breast Discharge Disposition: Home or Self Care 01/08/2025 Telephone Adult [address] [phone] Nitesh Fitzpatrick MD 12/11/2024 1:00 PM EDT Consult Pulmonology - [address] [place] [address] Harini Bose MD Obstructive sleep apnea (Primary Dx); Morbid obesity due to excess calories ([facility] V24, [facility] V28) 12/03/2024 Telephone Bariatric Surgery - [address] [place] [address] Jason Nair MD from Last 3 Months [...] CHOLECYSTECTOMY PROCEDURE: HISTORICAL CHOLECYSTECTOMY COLONOSCOPY 12/20/2011 PROCEDURE: LA COLONOSCOPY FLX DX W/COLLJ SPEC WHEN PFRMD; COMMENT: normal SECTION x3 PROCEDURE: HISTORICAL NECK SURGERY 01/15/13 PROCEDURE: HISTORICAL NECK SURGERY; COMMENT: ACDF C5-6, C6-7 Dr. Lisa Jasso at [facility] ESOPHAGOGASTRODUODENOSCOPY 09/26/2016 PROCEDURE: LA EGD TRANSORAL BIOPSY SINGLE/MULTIPLE; COMMENT: mild gastritis, reflux esophagitis; no H. pylori or Barretts Esophagus OTHER SURGICAL HISTORY 02/05/2014 Left PROCEDURE: LA BX/EXC LYMPH NODE OPEN DEEP AXILLARY NODE; [...] your loved ones. 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 [...] Labor Labor/2nd/3rd Weight Sex Type Anes PTL Aelisha A1 A5 Name Clin Term Term Term [...] 10:30 AM EST Consult Bariatric Surgery - [place] [facility] [address] [place] [phone] Lachelle Dill MD [address] [place] [address] 02/11/2025 10:00 AM EST Office Visit [address] [phone] Juan Manuel Quezada NP [address] [place] [address] 06/06/2025 11:30 AM EDT Office Visit [address] [phone] Nitesh Fitzpatrick MD [address] [place] [address] 06/10/2025 1:00 PM EDT Office Visit Pulmonology - [place] [facility] [address] [place] [phone] Harini Bose MD [address] [place] [address] Health Maintenance Due Date Last Done Comments [...] microalbuminuria, without long-term current use of insulin ([facility] V24, [facility]/H[facility] V28) CKD (chronic kidney disease) [...] Insomnia, unspecified type LIPID PANEL Routine 06/12/2023 HM COLONOSCOPY Routine 12/15/2022 HEPATITIS C SCREENING Routine [...] is recommended in 1 year. Mammo Location: [facility], [address] [place] [address], [address], . -------- FINAL REPORT -------- Dictated By: Jcarlos Flores Dictated Date: 01/21/2025 12:05 ET Assigned Physician: Jcarlos Flores Reviewed and Electronically Signed By: Jcarlos Flores Signed Date: 01/21/2025 12:45 ET Workstation ID: [id number] Transcribed By: Self Edit Transcribed Date: 01/21/2025 [...] is recommended in 1 year. Mammo Location: [facility], [address] [place] [address], [address], . -------- FINAL REPORT -------- Dictated By: Jcarlos Flores Dictated Date: 01/21/2025 12:05 ET Assigned Physician: Jcarlos Flores Reviewed and Electronically Signed By: Jcarlos Flores Signed Date: 01/21/2025 12:45 ET Workstation ID: [id number] Transcribed By: Self Edit Transcribed Date: 01/21/2025 12:42 ET us Nitesh Fitzpatrick MD IMG BI PROCEDURES Final Res ult * BD Bone Density DXA Axial w Vertebral Fx Asmt (09/27/2024 10:05 AM EDT) Anatomical Region Laterality Modality Body Bone Densitometr y 09/30/2024 8:40 AM EDT Impressions 09/30/2024 8:42 AM EDT Normal bone mineral density by WHO criteria. The [facility] Department of Internal Medicine recommends using National [...] alternative screening schedule based on bear Wu., [facility] April 07, 2011 for patients with osteopenia [...] Signed Date: 09/30/2024 08:42 ET Workstation ID: [id number] Transcribed By: Self Edit Transcribed Date: 09/30/2024 [...] bone mineral density by WHO criteria. The [facility] Department of Internal Medicine recommendsusing National Osteoporosis [...] alternative screening schedule based on bear Wu., [facility] for patients with osteopenia (based on [...] Signed Date: 09/30/2024 08:42 ET Workstation ID: [id number] Transcribed By: Self Edit Transcribed Date: 09/30/2024 08:40 ET Nitesh Fitzpatrick MD IMG DXA PROCEDURES Final Re sult * Microalbumin creatinine urine ratio (09/17/2024 2:17 PM EDT) Creatinine, Urine 161.0 mg/dL LAB CHEMISTRY METHOD 09/17/2024 7:[address] [facility] Microalb, Ur 13.2 0.0 - 29.0 mg/L LAB CHEMISTRY METHOD 09/17/2024 7:[address] [facility] Microalb/Creat Ratio 8 <30 mg/g creat LAB CHEMISTRY METHOD 09/17/2024 7:[address] [facility] Urine Urine specimen obtained by clean catch procedure / Unknown Non-blood Collection / Unknown 09/17/2024 2:17 PM EDT 09/17/2024 2:17 PM EDT Nitesh Fitzpatrick MD LAB URINE ORDERABLES Final Result [facility] [address] [place] [address], * Comprehensive metabolic panel (09/17/2024 2:17 PM EDT) Sodium 140 133 - 145 mmol/L LAB CHEMISTRY METHOD 09/17/2024 5:[address] [facility] Potassium 4.6 3.5 - 5.5 mmol/L LAB CHEMISTRY METHOD 09/17/2024 5:[address] [facility] Chloride 106 96 - 110 mmol/L LAB CHEMISTRY METHOD 09/17/2024 5:47 PM [facility] CO2 31 21 - 32 mmol/L LAB CHEMISTRY METHOD 09/17/2024 5:47 PM [facility] Anion Gap 3 3 - 11 LAB CHEMISTRY METHOD 09/17/2024 5:47 PM [facility] Glucose 84 70 - 100 mg/dL LAB CHEMISTRY METHOD 09/17/2024 5:47 PM [facility] BUN 13 5 - 25 mg/dL LAB CHEMISTRY METHOD 09/17/2024 5:47 PM [facility] Creatinine 0.94 0.50 - 1.10 mg/dL LAB CHEMISTRY METHOD 09/17/2024 5:47 PM [facility] eGFR 67 >=60 mL/min/1. 73m2 LAB CHEMISTRY METHOD 09/17/2024 5:47 PM [facility] Comment:Calculation based on the Chronic Kidney Disease Epidemiology Collaboration (CKD-EPI) equation refit without adjustment for race. BUN/Creatinine Ratio 13.8 LAB CHEMISTRY METHOD 09/17/2024 5:47 PM [facility] Calcium 9.2 8.5 - 10.5 mg/dL LAB CHEMISTRY METHOD 09/17/2024 5:47 PM [facility] AST (SGOT) 32 10 - 42 unit/L LAB CHEMISTRY METHOD 09/17/2024 5:47 PM [facility] ALT (SGPT) 51 10 - 60 unit/L LAB CHEMISTRY METHOD 09/17/2024 5:47 PM [facility] Alkaline Phosphatase 97 42 - 121 unit/L LAB CHEMISTRY METHOD 09/17/2024 5:47 PM [facility] Total Protein 6.9 6.0 - 8.0 g/dL LAB CHEMISTRY METHOD 09/17/2024 5:47 PM [facility] Albumin 3.4 3.2 - 5.0 g/dL LAB CHEMISTRY METHOD 09/17/2024 5:[address] [facility] Total Bilirubin 0.6 0.0 - 1.4 mg/dL LAB CHEMISTRY METHOD 09/17/2024 5:[address] [facility] Blood Venous blood specimen / Unknown Venipuncture / Unknown 09/17/2024 2:17 PM EDT 09/17/2024 2:17 PM EDT Nitesh Fitzpatrick MD LAB BLOOD ORDERABLES Final Result [facility] [address] [place] [address], * (ABNORMAL) Lipid panel (06/12/2023) [facility] LDL/HDL Ratio 3 0 - 4 Triglycerides 138 0 - 150 mg/dL Cholesterol 204(A) 0 - 200 mg/dL HDL 63 >=40 mg/dL LDL Cholesterol 114(A) 0 - 100 mg/dL Blood Venous blood specimen / Unknown Historical Provider LAB BLOOD ORDERABLES Kristel l Result * Colonoscopy (12/15/2022) [facility] Colonoscopy No Interpretation , Abstracted Anatomical Region Laterality Modality Other Historical [facility] Final Result * Hepatitis C Screening (09/11/2012) [facility] Hepatitis C Screening Abstracted Historical Provider HEALTH MAINTENANCE Final Result from Last 3 Months or Most Recently Relevant to Health Maintenance Insurance [employer] Member Subscriber Plan / Payer (Ef fective 2018-Present) Name:Freddie Kauffmanmia Relation to Subscriber:Self Name:Lina Kauffman Payer ID:[id number] Group ID:[id number] Type:Not on file Address: [facility] [id number] [id number] Care Teams Dietetic Tech Relationship Specialty Start Date End Date Nitesh Fitzpatrick MD [address] [place] [address] PCP - General Internal Medicine 06/29/21
--- OUTSIDE RECORDS SUMMARY | 2025-02-06 16:18 | XMS_ITS | Encounter Summary ---
Author Organization [employer] Address [address] [place] [address] Care Team Providers Care Reactor Kettle Operator Name Role Phone Nitesh Fitzpatrick MD Primary Care Provider [phone] [phone] Reason for Visit * Reason Onset Date Comments Med Refill 01/31/2025 Zepbound Encounter Details Date Type Department Care Team (Late st Contact Info) Description 01/31/2025 Telephone Bariatric Surgery - [place] [address] [facility] [address] [place] [phone] Jason Nair MD [address] [place] [phone] Social History Tobacco Use Types Packs/Day [...] care for your loved ones. For example, summer child caregiver or elderly care for an older adult? [...] 10:30 AM EST Consult Bariatric Surgery - [place] [address] [facility] [address] [place] [phone] Lachelle Dill MD [address] [place] [phone] 02/11/2025 10:00 AM EST Office Visit [address] [phone] Juan Manuel Quezada NP [address] [place] [address] 06/06/2025 11:30 AM EDT Office Visit [address] [phone] Nitesh Fitzpatrick MD [address] [place] [address] 06/10/2025 1:00 PM EDT Office Visit Pulmonology - [place] 175 [facility] 200 [place] [phone] Harini Bose MD [address] [place] [phone] documented as of this encounter Goals Goal [...] Time PHQ-9 Depression Total Score: 0 05/25/19 1:49 AM EST documented as of this encounter Care Teams Reactor Kettle Operator Relationship Specialty Start Date End Date Nitesh Fitzpatrick MD [address] [place] [address] PCP - General Internal Medicine 06/29/21 documented as of this encounter
--- OUTSIDE RECORDS SUMMARY | 2025-02-06 16:18 | XMS_ITS | Encounter Summary ---
Author Organization [facility] Address [address] [place] [address] Phone Care Team Providers Care Lightning Rod Erector Name Role Phone Bettina Aguiar MD Primary Care Provider [phone]- [phone] Encounter Details Date Type Department Care Team (Late Contact Info) Description 02/17/2022 Documentation Only [facility] [address] [place] [address] Tish Miguel PA [address] [place] [address] Social History Tobacco Use Types [...] Visit [facility] [address] [place] [address] Stef Wright MD [address] [facility] [address] [place] [address] documented as of this encounter Visit Diagnoses Not on filedocumented in this encounter Care Teams Lightning Rod Erector Relationship Specialty Start Date End Date Bettina Aguiar MD PCP - General 01/22/19 documented as of this encounter
--- OUTSIDE RECORDS SUMMARY | 2025-02-06 16:18 | XMS_ITS | Encounter Summary ---
Author Organization [facility] Address [address] [place] [address] Phone Care Team Providers Care Peer Tutor Name Role Phone Bettina Aguiar MD Primary Care Provider [phone]- [phone] Encounter Details Date Type Department Care Team (Late Contact Info) Description 05/03/2023 Documentation Only [facility] [address] [place] [place] [address] Mariana Lomeli [address] [place] [phone] Social History Tobacco Use Types Packs/Day [...] [facility] [address] [place] [address] Stef Wright MD [address] [facility] [address] [place] [address] documented as of this encounter Visit Diagnoses Not on filedocumented in this encounter Care Teams Peer Tutor Relationship Specialty Start Date End Date Bettina Aguiar MD PCP - General 01/22/19 documented as of this encounter
--- OUTSIDE RECORDS SUMMARY | 2025-02-06 16:19 | XMS_ITS | Encounter Summary ---
Author Organization [facility] [place] [address] Care Team Providers Care Founder And President Name Role Phone Nitesh Fitzpatrick MD Primary Care Provider [phone] [phone] Encounter Details Date Type Department Care Team (Late st Contact Info) Description 01/21/2025 Results Follow-Up Adult Medicine [address] [phone] Nitesh Fitzpatrick MD [address] [place] [address] Social History Tobacco Use Types Packs/Day Years [...] care for your loved ones. For example, children's service supervisor or elderly care for an older adult? [...] 10:30 AM EST Consult Bariatric Surgery - [address] [place] [address] Lachelle Dill MD [address] [place] [address] 02/11/2025 10:00 AM EST Office Visit [address] [phone] Juan Manuel Quezada NP [address] [place] [address] 06/06/2025 11:30 AM EDT Office Visit [address] [phone] Nitesh Fitzpatrick MD [address] [place] [address] 06/10/2025 1:00 PM EDT Office Visit Pulmonology - [address] [place] [address] Harini Bose MD [address] [place] [phone] documented as of this encounter Goals Goal [...] documented as of this encounter Care Teams Founder And President Relationship Specialty Start Date End Date Nitesh Fitzpatrick MD [address] [place] [address] PCP - General Internal Medicine 06/29/21 documented as of this encounter
--- OUTSIDE RECORDS SUMMARY | 2025-02-06 16:19 | XMS_ITS | Clinical Summary ---
Author Organization [facility] [place], Address [address] [place] [address] [place] [address] Phone Care Team Providers Care Warp Tension Tester Name Role Phone Bettina Aguiar MD Primary Care Provider +1- [phone] Allergies Active Allergy Reactions Criticality Noted Date [...] 99%. For the entire study, PLMs ~37. [facility] Polysomnogram treatment study. Date 04/14/2019. Wt 230#; [...] Only [facility] [address] [place] [address] Danielle Gisela Type 2 diabetes [...] Visit [facility] [place], [address] [place] [address] Stef Wright MD [address] [facility] [place] [address] Health Maintenance Due Date Last Done [...] None seen 0 - 5 /hpf [facility] RBC, Urine None seen 0 - 2 /hpf [facility] Squamous Epithelial, Urine 0-10 0 - 10 /hpf [facility] Casts None seen None seen /lpf [facility] Bacteria, Urine Few None seen/Few [facility] 12/03/2024 1:53 PM EDT 12/03/2024 us Stef Wright MD LAB MICROBIOLOGY - GENERAL ORDER VITOR Final Result [facility] [address] [place] [address] * Iron Panel (Fe, TIBC, TSAT) (12/03/2024 1:53 PM EDT) TIBC 308 250 - 450 ug/dL [facility] UIBC 213 118 - 369 ug/dL [facility] Iron 95 27 - 139 ug/dL [facility] Iron Saturation (TSat) 31 15 - 55 % [facility] Blood Venous blood / Unknown 12/03/2024 1:53 PM EDT 12/03/2024 us Stef Wright MD LAB BLOOD ORDERABLES Final Resul t [facility] [address] [place] [address] * Urine Protein / creatinine ratio (12/03/2024 1:53 PM EDT) Creatinine, Ur 205.0 Not Estab. mg/dL [facility] Protein, Ur 21.9 Not Estab. mg/dL [facility] Urine Protein/Creatin ine Ratio 107 0 - 200 mg/g creat [facility] Urine Urine specimen obtained by clean catch procedure / Unknown 12/03/2024 1:53 PM EDT 12/03/2024 us Stef Wright MD LAB URINE ORDERABLES Final Resul t Performing Organization Address City/[facility]/ZIP Co de Phone Number [facility] [address] [place] [address] * Vitamin D 25 hydroxy (12/03/2024 1:53 PM EDT) Vitamin D, 25-OH, Total 31.6 30.0 - 100.0 ng/mL [facility] Comment: Vitamin D deficiency has been defined by the Diamond of Medicine and an Endocrine Society practice guideline as a level of serum 25-OH vitamin D less than 20 ng/mL (1,2). The Endocrine Society went on to further define vitamin D insufficiency as a level between 21 and 29 ng/mL (2). 1. IOM (Diamond of Medicine). 2010. Dietary reference intakes for calcium and D. [place]: The National Academies Press. 2. Louise MENDEZ, Telly AL, Bay CLEMENTS, et al. Evaluation, treatment, and prevention of vitamin D deficiency: an Endocrine Society clinical practice guideline. JCEM. 2010; 96(7):1911-30. Blood Venous blood / Unknown 12/03/2024 1:53 PM EDT 12/03/2024 us tSef Wright MD LAB BLOOD ORDERABLES Final Resul t [facility] [address] [place] [address] * (ABNORMAL) Urinalysis with microscopic (12/03/2024 1:53 PM EDT) Specific [place], Urine 1.022 1.005 - 1.030 [facility] pH Urine 7.0 5.0 - 7.5 [facility] Color, Urine Yellow Yellow [facility] Appearance Urine Clear Clear [facility] [phone] WBC Esterase Urine Negative Negative [facility] [phone] Protein, Ur 1+(A) Negative/Tra ce [facility] [phone] Glucose, Ur Negative Negative [facility] [phone] Ketones, Urine Trace(A) Negative [facility] Blood Urine Negative Negative [facility] [phone] Bilirubin Urine Negative Negative [facility] Urobilinogen Urine 1.0 0.2 - 1.0 mg/dL [facility] Nitrite, Urine Negative Negative [facility] Microscopic Examination See below: [facility] Comment:Microscopic was uma cated and was performed. Urine Urine specimen obtained by clean catch procedure / Unknown 12/03/2024 1:53 PM EDT 12/03/2024 us Stef Wright MD LAB URINE ORDERABLES Final Resul t [facility] [address] [place] [address] * CBC and differential (12/03/2024 1:53 PM EDT) [facility] WBC 6.7 3.4 - 10.8 x10E3/uL [facility] RBC 4.96 3.77 - 5.28 x10E6/uL [facility] Hemoglobin 14.3 11.1 - 15.9 g/dL [facility] Hematocrit 44.7 34.0 - 46.6 % [facility] MCV 90 79 - 97 fL [facility] MCH 28.8 26.6 - 33.0 pg [facility] MCHC 32.0 31.5 - 35.7 g/dL [facility] RDW 12.4 11.7 - 15.4 % [facility] Platelets 261 150 - 450 x10E3/uL [facility] Neutrophils Relative 61 Not Estab. % [facility] Lymphocytes Relative 28 Not Estab. % [facility] Monocytes 7 Not Estab. % [facility] Eosinophils Relative 3 Not Estab. % [facility] Basophils Relative 1 Not Estab. % [facility] Neutrophils Absolute 4.1 1.4 - 7.0 x10E3/uL [facility] Lymphocytes Absolute 1.9 0.7 - 3.1 x10E3/uL [facility] Monocytes Absolute 0.4 0.1 - 0.9 x10E3/uL [facility] Eosinophils Absolute 0.2 0.0 - 0.4 x10E3/uL [facility] Basophils Absolute 0.0 0.0 - 0.2 x10E3/uL [facility] Immature Granulocytes 0 Not Estab. % [facility] Immature Grans (Absolute) 0.0 0.0 - 0.1 x10E3/uL [facility] Blood Venous blood / Unknown 12/03/2024 1:53 PM EDT 12/03/2024 Stef Wright MD LAB BLOOD ORDERABLES Final Resul t [facility] [address] [place] [address] * Hemoglobin A1c (12/03/2024 1:53 PM EDT) Hemoglobin A1C 5.3 4.8 - 5.6 % [facility] Comment: Prediabetes: 5.7 - 6.4 Diabetes: >6.4 Glycemic control for adults with diabetes: <7.0 Blood Venous blood / Unknown 12/03/2024 1:53 PM EDT 12/03/2024 Stef Wright MD LAB BLOOD ORDERABLES Final Resul t Performing Organization Address City/[facility]/ZIP Co de Phone Number [facility] [address] [place] [address] * Renal function panel (12/03/2024 1:53 PM EDT) Glucose 79 70 - 99 mg/dL [facility] BUN 15 8 - 27 mg/dL [facility] Creatinine 0.99 0.57 - 1.00 mg/dL [facility] eGFR CKD-EPI CR 2020 63 >59 mL/min/1.7 3 [facility] BUN/Creatinine Ratio 15 12 - 28 [facility] Sodium 139 134 - 144 mmol/L [facility] Potassium 4.2 3.5 - 5.2 mmol/L [facility] Chloride 101 96 - 106 mmol/L [facility] Bicarbonate (CO2) 24 20 - 29 mmol/L [facility] Calcium 9.2 8.7 - 10.3 mg/dL [facility] Albumin 3.9 3.9 - 4.9 g/dL [facility] Phosphorus 3.6 3.0 - 4.3 mg/dL [facility] Blood Venous blood / Unknown 12/03/2024 1:53 PM EDT 12/03/2024 us Stef Wright MD LAB BLOOD ORDERABLES Final Resul t [facility] [address] [place] [address] from Last 3 Months Insurance [facility] [employer] Dual SNP ([id number]) [place] [id number] Care Teams Warp Tension Tester Relationship Specialty Start Date End Date Bettina Aguiar MD PCP - General 01/22/19
--- OUTSIDE RECORDS SUMMARY | 2025-02-06 16:19 | XMS_ITS | Encounter Summary ---
Author Organization [facility] Address [address] [place] [address] Care Team Providers Care Claim Analyst Name Role Phone Nitesh Fitzpatrick MD Primary Care Provider +1 [phone] Reason for Visit * Reason Onset Date Comments Weight Check 01/31/2025 Weight check 199 .6lbs Encounter Details Date Type Department Care Team (Late st Contact Info) Description 01/31/2025 Telephone Bariatric Surgery - [place] [address] [facility] [address] [place] [address] Jason Nair MD [address] [place] [phone] Social History Tobacco Use Types Packs/Day [...] care for your loved ones. For example, residential child care counselor or elderly care for an older adult? [...] 10:30 AM EST Consult Bariatric Surgery - [place] 175 [facility] [address] [place] [address] Lachelle Dill MD [address] [place] [phone] 02/11/2025 10:00 AM EST Office Visit [address] [phone] Juan Manuel Quezada NP [address] [place] [address] 06/06/2025 11:30 AM EDT Office Visit [address] [phone] Nitesh Fitzpatrick MD [address] [place] [address] 06/10/2025 1:00 PM EDT Office Visit Pulmonology - [place] 175 [facility] [address] [place] [address] Harini Bose MD [address] [place] [phone] documented as of this encounter Goals Goal [...] documented as of this encounter Care Teams Claim Analyst Relationship Specialty Start Date End Date Nitesh Fitzpatrick MD [address] [place] [address] PCP - General Internal Medicine 06/29/21 documented as of this encounter
== END 2025-02-06 12:43 | disposition home or self-care (01) ==
LOC: HO.RHES 10:49
PROVIDERS: PCP Internal Medicine; Visit Provider Student in an Organized Health Care Education/Training Program
DX: M05.9 Rheumatoid arthritis with rheumatoid factor, unspecified (principal); M15.9 Polyosteoarthritis, unspecified; Z51.81 Encounter for therapeutic drug level monitoring; Z79.620 Long term (current) use of immunosuppressive biologic; Z79.899 Other long term (current) drug therapy
CPT/HCPCS: 99214; G2211

== ENCOUNTER → 2025-02-06 10:48 | Outpatient (BNVA) | payer OTHER, SELFPAY | PROVIDERS: PCP Internal Medicine; Visit Provider Student in an Organized Health Care Education/Training Program | DX: M05.79 Rheumatoid arthritis with rheumatoid factor of multiple sites without organ or systems involvement (principal); M15.9 Polyosteoarthritis, unspecified; Z79.620 Long term (current) use of immunosuppressive biologic; Z79.899 Other long term (current) drug therapy | CPT/HCPCS: 99212 ==

== ENCOUNTER 2025-03-10 10:23 | Outpatient (REF) | payer OTHER, SELFPAY ==
--- OUTSIDE RECORDS SUMMARY | 2025-03-10 12:43 | XMS_ITS | Clinical Summary ---
Author Organization [facility] [address] [facility] Address [address] [place] [address] Phone Care Team Providers Care Java Support Engineer Name Role Phone Nitesh Fitzpatrick MD Primary [...] 2 (two) times a day. 5 Active conjugated estrogens (Premarin) vaginal cream USE A PEA SIZED AMOUNT OF CREAM IN THE VAGINA 3 TIMES A WEEK 90 g 5 Active diclofenac (VOLTAREN) 1 % topical gel Apply 4 g topically 2 (two) times a day. 1 each 1 Active polyethylene glycol (MIRALAX) 17 gram packet Take 17 g by mouth 1 (one) time each day. 1530 g 1 5 Active tirzepatide, weight loss, (Zepbound) 12.5 mg/0.5 mL injection Inject 0.5 mL (12.5 mg total) under the skin every 7 (seven) days. 2 mL 2 5 04/26/19 Active meclizine (ANTIVERT) 25 mg tablet Take 1 tablet (25 mg total) by mouth 3 (three) times a day if needed for dizziness. 30 tablet 11 5 02/12/20 26 Active minoxidiL (Rogaine) 2 % external solutionIndica tions:Drug-rel ated hair loss Apply topically 2 (two) times a day. 60 mL 1 5 03/10/20 26 Active meloxicam (MOBIC) 15 mg tablet Take 1 tablet (15 mg total) by mouth 1 (one) time each day. 5 02/12/20 Discontinu ed(Therapy completed) Active Problems Problem Noted Date Diagnosed Date [...] without long-term current use of insulin 05/24/2022 Right flank pain 02/22/2021 Vitamin D [...] 99%. For the entire study, PLMs ~37. [facility] Polysomnogram treatment study. Date 04/14/2019. Wt 230#; [...] HTN Anxiety and depression 12/13/2011 Seropositive rheumatoid arthritis 09/22/2011 Overview (02/09/2024): Given penicillin prophylaxis for acute rheumatic fever until age 12 Onset 2001.RFpositive On Enbrel since 2003 Thyroid nodule 09/22/2011 Overview (02/09/2024): FNA 11/29; Ct's thyroid; FNA 11/30 BENIGN Encounters Date Type Department Care Team Description 03/10/2025 Telephone Bariatric Surgery - [place] 175 [facility] 120 [place] [address] Jason Nair MD 02/27/2025 10:00 AM EST Treatment [facility] Occupational Therapy [address] [place] [address] [address] [place] [address] Melita Duong, OT Vertigo (Primary Dx) 02/20/2025 9:30 AM EST Evaluation [facility] [address] [phone] Melita Duong, OT Vertigo 02/11/2025 10:00 AM EST Office Visit [address] [phone] Juan Manuel Quezada NP Vertigo (Primary Dx) 02/07/2025 10:30 AM EST Consult Bariatric Surgery [address] [address] Lachelle Dill MD Lipoma of torso (Primary Dx) 01/31/[address] [address] Jason Nair MD 01/31/2025 Telephone Bariatric [address] [address] Jason Nair MD 01/29/2025 1:30 PM EST Office Visit [address] [phone] Nitesh Fitzpatrick MD Type 2 diabetes mellitus with diabetic microalbuminuria, without long-term current use of insulin ([facility] V24, CMS/[facility] V28) (Primary Dx); Obesity (BMI 35.0-39.9 without comorbidity); Constipation, unspecified constipation type; CKD (chronic kidney disease) stage 2, GFR 60-89 ml/min; Seropositive rheumatoid arthritis (CMS/HCC V24, CMS/HCC V28); Thyroid nodule; Fatty liver; ROLY on CPAP; Anxiety and depression 01/21/2025 Results Follow-Up [address] [phone] Nitesh Fitzpatrick MD 01/17/2025 2:31 PM EDT - 01/17/2025 11:59 PM EDT Hospital Encounter Radiology Department - [address] [phone] Encounter for screening mammogram for malignant neoplasm of breast Discharge Disposition: Home or Self Care 01/08/2025 Telephone Adult Medicine [address] [phone] Nitesh Fitzpatrick MD 12/11/2024 1:00 PM EDT Consult Pulmonology - [address] [place] [address] Harini Bose MD Obstructive sleep apnea (Primary Dx); Morbid obesity due to excess calories ([facility] V24, [facility] V28) from Last 3 Months Immunizations Immunization Administration [...] CHOLECYSTECTOMY PROCEDURE: HISTORICAL CHOLECYSTECTOMY COLONOSCOPY 12/20/2011 PROCEDURE: AR COLONOSCOPY FLX DX W/COLLJ SPEC WHEN PFRMD; COMMENT: normal SECTION x3 PROCEDURE: HISTORICAL NECK SURGERY 01/15/13 PROCEDURE: HISTORICAL NECK SURGERY; COMMENT: ACDF C5-6, C6-7 Dr. Lisa Jasso at [facility] ESOPHAGOGASTRODUODENOSCOPY 09/26/2016 PROCEDURE: AR EGD TRANSORAL BIOPSY SINGLE/MULTIPLE; COMMENT: mild gastritis, reflux esophagitis; no H. pylori or Barretts Esophagus OTHER SURGICAL HISTORY 02/05/2014 Left PROCEDURE: AR BX/EXC LYMPH NODE OPEN DEEP AXILLARY NODE; [...] care for your loved ones. For example, childbirth educator or elderly care for an older adult? [...] Information Value Date Recorded Sex Assigned at Female 02/11/2025 1:41 PM EST Legal Sex Female 2:57 AM EST Gender Identity Female 02/11/2025 1:41 PM EST Sexual Orientation Straight 02/11/2025 1: 41 PM EST Obstetrics History Para Term AB IAB SAB Ectopic Multiple Livin g Live Births 3 3 3 3 Date Outcome GA Total Labor Labor/2nd/3rd Weight Sex Type Anes PTL Aleisha A1 A5 Name Clin Term Term Term Last Filed Vital Signs Vital Sign Reading Time Taken Comments Blood Pressure 111/68 02/11/2025 10:01 AM EST Pulse 77 02/11/2025 10:01 AM EST Temperature 36 C (96.8 F) 02/11/2025 10:01 AM EST Respiratory Rate 20 12/11/2024 12:59 PM EDT Oxygen Saturation 98% 02/11/2025 10:01 AM EST Inhaled Oxygen Concentration - - Weight 91.6 kg (202 lb) 02/11/2025 10:01 AM EST Height 160 cm (5' 3 ) 02/11/2025 10:01 AM EST Body Mass Index 35.78 02/11/2025 10:01 AM EST Plan of Treatment Upcoming Encounters Date Type Department Care Team (Late st Contact Info) Description 03/31/2025 10:30 AM EST Procedure visit Bariatric Surgery [address] [place] [address] Lachelle Dill MD [address] [place] [phone] 06/06/2025 11:30 AM EDT Office Visit Adult Medicine [address] [phone] Nitesh Fitzpatrick MD [address] [place] [address] 06/10/2025 1:00 PM EDT Office Visit Pulmonology [facility] 175 [facility] 200 [place] [address] Harini Bose MD [address] [place] [phone] Health Maintenance Due Date Last Done Comments Drug Screen 1960 Non-Opioid Controlled Substance Agreement 1960 Diabetes: Annual Foot Exam 05/24/1969 Diabetes: [...] knee Pt will be independent with HEP OT vestib General No change(2024 10:22 AM EST) No Melita Duong, OT Note: GOALS 1. No nystag w/ repeat positonal testing all canals 2. No reported dizziness w/ bed mob 3. Indep HEP for self-manage of residual/recurrent symptoms Procedures Procedure Name Priority Date/Time Associated Diagnosis Comments EXTERNAL CLINICAL LAB 02/03/2025 MG MAMMO DIGITAL SCREENING W STEVE BILAT [...] without long-term current use of insulin ([facility] V24, [facility] V28) CKD (chronic kidney disease) stage 2, [...] Recently Relevant to Health Maintenance Results * External clinical lab (02/03/2025) us Provider [facility] LAB BLOOD ORDERABLES Fin al Result * MG Mammo Digital Screening w Steve bilat (01/17/2025 2:47 PM EDT) Anatomical Region Laterality Modality Breast Bilateral Mammography 01/21/2025 12:0 5 PM EST Impressions 01/21/2025 12:45 PM EST 1. No mammographic evidence of malignancy 2. Scattered fibroglandular tissue BI-RADS CATEGORY: 2 - BENIGN RECOMMENDATION: Screening bilateral mammogram is recommended in 1 year. Mammo Location: [facility], [address] [place] [address], [address], . -------- FINAL REPORT -------- Dictated By: Jcarlos Flores Dictated Date: 01/21/2025 12:05 ET Assigned Physician: Jcarlos Flores Reviewed and Electronically Signed By: Jcarlos Flores Signed Date: 01/21/2025 12:45 ET Workstation ID: [id number] Transcribed By: Self Edit Transcribed Date: 01/21/2025 [...] is recommended in 1 year. Mammo Location: [facility], [address] [place] [address], [address], . -------- FINAL REPORT -------- Dictated By: Jcarlos Flores Dictated Date: 01/21/2025 12:05 ET Assigned Physician: Jcarlos Flores Reviewed and Electronically Signed By: Jcarlos Flores Signed Date: 01/21/2025 12:45 ET Workstation ID: [id number] Transcribed By: Self Edit Transcribed Date: 01/21/2025 12:42 ET us Nitesh Fitzpatrick MD IMG BI PROCEDURES Final Res ult * BD Bone Density DXA Axial w Vertebral Fx Asmt (09/27/2024 10:05 AM EDT) Anatomical Region Laterality Modality Body Bone Densitometr y 09/30/2024 8:40 AM EDT Impressions 09/30/2024 8:42 AM EDT Normal bone mineral density by WHO criteria. [facility] Department of Internal Medicine recommends using National [...] alternative screening schedule based on bear Wu., [facility] April 07, 2011 for patients with [...] Signed Date: 09/30/2024 08:42 ET Workstation ID: [id number] Transcribed By: Self Edit Transcribed Date: 09/30/2024 [...] bone mineral density by WHO criteria. [facility] Department of Internal Medicine recommendsusing National Osteoporosis [...] alternative screening schedule based on bear Wu., [facility] for patients with osteopenia (based [...] Signed Date: 09/30/2024 08:42 ET Workstation ID: [id number] Transcribed By: Self Edit Transcribed Date: 09/30/2024 08:40 ET us Nitesh Fitzpatrick MD IM DXA PROCEDURES Final Re sult * Microalbumin creatinine urine ratio (09/17/2024 2:17 PM EDT) Creatinine, Urine 161.0 mg/dL LAB CHEMISTRY METHOD 09/17/2024 7:35 PM EDT [facility] Microalb, Ur 13.2 0.0 - 29.0 mg/L LAB CHEMISTRY METHOD 09/17/2024 7:35 PM EDT [facility] Microalb/Creat Ratio 8 <30 mg/g creat LAB CHEMISTRY METHOD 09/17/2024 7:35 PM EDT [facility] Urine Urine specimen obtained by clean catch procedure / Unknown Non-blood Collection / Unknown 09/17/2024 2:17 PM EDT 09/17/2024 2:17 PM EDT Nitesh Fitzpatrick MD LAB URINE ORDERABLES Final Result Performing Organization Address City/[facility]/ZIP Co de Phone Number [facility] [address] [place] [address], [place] [phone] * Hemoglobin A1c (09/17/2024 2:17 PM EDT) [facility] Hemoglobin A1C 5.2 <6.5 % LAB CHEMISTRY METHOD 09/17/2024 9:54 PM EDT [facility] Mean Bld Glu Estim. 103 mg/dL LAB CHEMISTRY METHOD 09/17/2024 9:54 PM EDT [facility] Blood Venous blood specimen / Unknown Venipuncture / Unknown 09/17/2024 2:17 PM EDT 09/17/2024 2:17 PM EDT Nitesh Fitzpatrick MD LAB BLOOD ORDERABLES Final Result Performing Organization Address [facility]/ZIP Co de Phone Number [facility] [address] [place] [address], [place] [phone] * Comprehensive metabolic panel (09/17/2024 2:17 PM EDT) Sodium 140 133 - 145 mmol/L LAB CHEMISTRY METHOD 09/17/2024 5:47 PM EDT [facility] Potassium 4.6 3.5 - 5.5 mmol/L LAB CHEMISTRY METHOD 09/17/2024 5:47 PM EDT [facility] Chloride 106 96 - 110 mmol/L LAB CHEMISTRY METHOD 09/17/2024 5:47 PM EDT [facility] CO2 31 21 - 32 mmol/L LAB CHEMISTRY METHOD 09/17/2024 5:47 PM [facility] Anion Gap 3 3 - 11 LAB CHEMISTRY METHOD 09/17/2024 5:47 PM [facility] Glucose 84 70 - 100 mg/dL LAB CHEMISTRY METHOD 09/17/2024 5:47 PM [facility] BUN 13 5 - 25 mg/dL LAB CHEMISTRY METHOD 09/17/2024 5:47 PM [facility] Creatinine 0.94 0.50 - 1.10 mg/dL LAB CHEMISTRY METHOD 09/17/2024 5:47 PM [facility] eGFR 67 >=60 mL/min/1. 73m2 LAB CHEMISTRY METHOD 09/17/2024 5:47 PM [facility] Comment:Calculation based on the Chronic Kidney Disease Epidemiology Collaboration (CKD-EPI) equation refit without adjustment for race. BUN/Creatinine Ratio 13.8 LAB CHEMISTRY METHOD 09/17/2024 5:47 PM [facility] Calcium 9.2 8.5 - 10.5 mg/dL LAB CHEMISTRY METHOD 09/17/2024 5:47 PM [facility] AST (SGOT) 32 10 - 42 unit/L LAB CHEMISTRY METHOD 09/17/2024 5:47 PM [facility] ALT (SGPT) 51 10 - 60 unit/L LAB CHEMISTRY METHOD 09/17/2024 5:47 PM [facility] Alkaline Phosphatase 97 42 - 121 unit/L LAB CHEMISTRY METHOD 09/17/2024 5:47 PM [facility] Total Protein 6.9 6.0 - 8.0 g/dL LAB CHEMISTRY METHOD 09/17/2024 5:47 PM [facility] Albumin 3.4 3.2 - 5.0 g/dL LAB CHEMISTRY METHOD 09/17/2024 5:47 PM [facility] Total Bilirubin 0.6 0.0 - 1.4 mg/dL LAB CHEMISTRY METHOD 09/17/2024 5:47 PM EDT [facility] Blood Venous blood specimen / Unknown Venipuncture / Unknown 09/17/2024 2:17 PM EDT 09/17/2024 2:17 PM EDT Nitesh Fitzpatrick MD LAB BLOOD ORDERABLES Final Result [facility]) [facility] [address] [place] [address], * (ABNORMAL) Lipid panel (06/12/2023) [facility] LDL/HDL Ratio 3 0 - 4 Triglycerides 138 0 - 150 mg/dL Cholesterol 204(A) 0 - 200 mg/dL HDL 63 >=40 mg/dL LDL Cholesterol 114(A) 0 - 100 mg/dL Blood Venous blood specimen / Unknown Result [facility] Historical [facility] BLOOD ORDERABLES Kristel l Result * Colonoscopy (12/15/2022) Pathologist [facility] Colonoscopy No Interpretation , Abstracted Anatomical Region Laterality Modality Other Historical [facility] Final Result * Hepatitis C Screening (09/11/2012) [facility] Hepatitis C Screening Abstracted Historical [facility] Final Result from Last 3 Months or Most Recently Relevant to Health Maintenance Insurance [employer] Member Subscriber Plan / Payer (Ef fective 2018-Present) Name:Lina Kauffman Relation to Subscriber:Self Name:Lina Kauffman Payer ID:[id number] Group ID:[id number] Type:Not on file Address: [facility] [place] [id number] Care Teams Java Support Engineer Relationship Specialty Start Date End Date Nitesh Fitzpatrick MD [address] [place] [address] PCP - General Internal Medicine 06/29/21
--- OUTSIDE RECORDS SUMMARY | 2025-03-10 12:43 | XMS_ITS | Encounter Summary ---
Author Organization [facility] Address [address] [place] [address] Phone Care Team Providers Care Store Hand Name Role Phone Bettina Aguiar MD Primary Care Provider +1- [phone] Encounter Details Date Type Department Care Team (Late Contact Info) Description 02/17/2022 Documentation Only [facility] [address] [place] [address] Tish Miguel PA [address] [place] [address] Social History Tobacco Use Types [...] Visit [facility] [address] [place] [address] Stef Wirght MD [address] [place] [address] documented as of this encounter Visit Diagnoses Not on filedocumented in this encounter Care Teams Store Hand Relationship Specialty Start Date End Date Bettina Aguiar MD PCP - General 01/22/19 documented as of this encounter
--- OUTSIDE RECORDS SUMMARY | 2025-03-10 12:43 | XMS_ITS | Clinical Summary ---
Author Organization [facility] [place], Address [address] [place] [address] [place] [address] Phone Care Team Providers Care Restorative Art Embalmer Name Role Phone Bettina Aguiar MD Primary Care Provider +1- [phone] Allergies Active Allergy Reactions Criticality Noted Date [...] 99%. For the entire study, PLMs ~37. [facility] Polysomnogram treatment study. Date 04/14/2019. 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 [address] Stef Wright MD [address] [place] [address] Health Maintenance [...] without complication (HCC) from Last 3 Months or Most Recently Relevant to Health Maintenance Results * Hemoglobin A1c (12/03/2024 1:53 PM EDT) Hemoglobin A1C 5.3 4.8 - 5.6 % [facility] Comment: Prediabetes: 5.7 - 6.4 Diabetes: >6.4 Glycemic control for adults with diabetes: <7.0 Blood Venous blood / Unknown 12/03/2024 1:53 PM EDT 12/03/2024 us Stef Wright MD LAB BLOOD ORDERABLES Final Resul t [facility] [place] [address] [place] [address] from Last 3 Months or Most Recently Relevant to Health Maintenance Insurance [employer] Dual SNP ([id number]) [place] [id number] Care Teams Restorative Art Embalmer Relationship Specialty Start Date End Date Bettina Aguiar MD PCP - General 01/22/19
--- OUTSIDE RECORDS SUMMARY | 2025-03-10 12:43 | XMS_ITS | Encounter Summary ---
Author Organization [facility] Address [address] [place] [address] Phone Care Team Providers Care Waiter/Waitress Dining Car Name Role Phone Bettina Aguiar MD Primary Care Provider +1- [phone] Encounter Details Date Type Department Care Team (Late Contact Info) Description 05/03/2023 Documentation Only [facility] [address] [place] [place] [address] Mariana Lomeli [address] [place] [address] Social History Tobacco Use Types Packs/Day [...] Visit [facility] [address] [place] [place] [address] Stef rWight MD [address] [place] [address] documented as of this encounter Visit Diagnoses Not on filedocumented in this encounter Care Teams Waiter/Waitress Dining Car Relationship Specialty Start Date End Date Bettina Aguiar MD PCP - General 01/22/19 documented as of this encounter
--- OUTSIDE RECORDS SUMMARY | 2025-03-10 12:43 | XMS_ITS | Encounter Summary ---
Author Organization [facility] Address [address] [place] [address] Care Team Providers Care Gimp Tacker Name Role Phone Nitesh Fitzpatrick MD Primary Care Provider [phone] Encounter Details Date Type Department Care Team (Late st Contact Info) Description 01/21/2025 Results Follow-Up Adult Medicine [address] [phone] Nitesh Fitzpatrick MD [address] [place] [address] Social History Tobacco Use Types Packs/Day Years [...] Orientation Straight 02/11/2025 1: 41 PM EST documented as of this encounter Plan of Treatment Upcoming Encounters Date Type Department Care Team (Late st Contact Info) Description 03/31/2025 10:30 AM EST Procedure visit Bariatric Surgery - [address] [address] Lachelle Dill MD [address] [place] [phone] 06/06/2025 11:30 AM EDT Office Visit Adult Medicine [facility] [address] [place], [place] [phone] Nitesh Fitzpatrick MD [address] [place], [place] 06/10/2025 1:00 PM EDT Office Visit Pulmonology - [place] 175 [facility] [address] [place] [address] Harini Bose MD [address] [place] [phone] documented as of this encounter Goals Goal [...] documented as of this encounter Care Teams Gimp Tacker Relationship Specialty Start Date End Date Nitesh Fitzpatrick MD [address] [place] [address] PCP - General Internal Medicine 06/29/21 documented as of this encounter
--- OUTSIDE RECORDS SUMMARY | 2025-03-10 12:43 | XMS_ITS | Encounter Summary ---
Author Organization [facility] Address [address] [place] [address] Care Team Providers Care Contracts Administrator Name Role Phone Nitesh Fitzpatrick MD Primary Care Provider +1- [phone] Reason for Visit * Reason Onset Date Comments Weight Check 03/10/2025 198.0 Encounter Details Date Type Department Care Team ([facility] st Contact Info) Description 03/10/2025 Telephone Bariatric Surgery - [place] [address] [facility] [address] [place] [phone] Jason Nair MD [address] [place] [phone] Social History Tobacco Use Types Packs/Day [...] your loved ones. For example, child care provider or elderly care for an older adult? [...] PM EST documented as of this encounter Progress Notes * Liliam Mancini - 03/10/2025 10:48 AM EST Weight 198.0 Pt has hair falling out in chunks would like to lower dose of Zepbound to 7.5 mg please send script. documented in this encounter Plan of Treatment Upcoming Encounters Date Type Department Care Team (Late st Contact Info) Description 03/31/2025 10:30 AM EST Procedure visit Bariatric Surgery - [place] 175 [facility] 120 [place] [phone] Lachelle Dill MD [address] [place] [phone] 06/06/2025 11:30 AM EDT Office Visit Adult Medicine [facility] [address] [place] [address] Nitesh Fitzpatrick MD [address] [place] [phone] 06/10/2025 1:00 PM EDT Office Visit Pulmonology - [place] [address] [facility] 200 [place] [phone] Harini Bose MD [address] [place] [phone] documented as of this encounter Goals Goal [...] Indep HEP for self-manage of residual/recurrent symptoms documented as of this encounter Visit Diagnoses Not on filedocumented in this encounter Additional Health Concerns Assessment Noted Time PHQ-9 Depression Total Score: 0 05/25/19 25 1:49 AM EST documented as of this encounter Care Teams Contracts Administrator Relationship Specialty Start Date End Date Nitesh Fitzpatrick MD [address] [place] [address] PCP - General Internal Medicine 06/29/21 documented as of this encounter
[2025-03-10 14:42] LABS: Alanine Aminotransferase 100 U/L (0-31); Albumin Level 3.8 g/dL (3.5-5.0); Alkaline Phosphatase 197 U/L (39-117); Anion Gap 11 (12-20); Aspartate Amino Transferase 78 U/L (5-31); Blood Urea Nitrogen 17 mg/dL (9-16); Calcium 9.2 mg/dL (8.4-10.2); Carbon Dioxide 28 mmol/L (22-29); Chloride 106 mmol/L (96-108); Estimated Glomerular Filt Rate > 60; Potassium 4.3 mmol/L (3.3-5.1); Sodium 141 mmol/L (135-145); Total Protein 7.0 g/dL (6.5-8.0)
== END 2025-03-10 10:24 | disposition home or self-care (01) ==
LOC: HO.HKASLDS 10:23
PROVIDERS: PCP Internal Medicine; Visit Provider Student in an Organized Health Care Education/Training Program
DX: Z79.899 Other long term (current) drug therapy (principal)
CPT/HCPCS: 36415; 80053

== ENCOUNTER 2025-03-15 14:32 | Outpatient (REF) | payer OTHER, SELFPAY ==
--- NOTE | ~2025-03-15 | MR_ITS ---
EXAMINATION: MR KNEE WITHOUT IV CONTRAST LEFT HISTORY: M25.562 - Pain in left knee COMPARISON: There are no prior studies available for comparison. TECHNIQUE: Coronal T1 and fat-suppressed proton density, sagittal proton density and fat-suppressed proton density, and axial fat suppressed T2 weighted MR images of the knee were obtained. FINDINGS: Bone marrow: Bone marrow signal intensity is normal. Joint effusion: There is no significant joint effusion. Quezada's cyst: There is no Quezada's cyst. Articular cartilage: There is mild to moderate thinning and irregularity of the cartilage involving the medial and patellofemoral compartments. Muscles/soft tissues: The visualized muscles demonstrate normal signal intensity. Anterior cruciate ligament: Intact Posterior cruciate ligament: Intact Medial collateral ligament: Intact Lateral collateral ligament: Intact Medial meniscus: There is a horizontally oriented linear focus of increased signal intensity in the body of the meniscus. This contacts the superior joint surface, compatible with a tear. There may be a radial component. Immediately adjacent to this segment of the meniscus is a 2.1 x 0.9 x 2.6 cm multiseptated cystic structure, suggestive of a meniscal cyst. Lateral meniscus: Intact Flexor mechanism: The popliteus, gastrocnemius, and hamstring tendons are intact. Quadriceps tendon: Intact Patellar tendon: Intact Patellar retinacula: Intact MR/MR knee LT wo con IMPRESSION: 1. 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 2. Tear of the body of the medial meniscus as described, with a probable associated 2.1 x 0.9 x 2.6 cm meniscal cyst. Electronically signed by: Darell Zhou MD 03/17/2025 08:30 AM [facility]
--- OUTSIDE RECORDS SUMMARY | 2025-03-15 14:36 | XMS_ITS | Encounter Summary ---
Author Organization [facility] Address [address] [place] [address] Phone Care Team Providers Care Studio Couch Frame Builder Name Role Phone Bettina Aguiar MD Primary Care Provider +1- [phone] Encounter Details Date Type Department Care Team (Late Contact Info) Description 02/17/2022 Documentation Only [facility] [address] [place] [address] Tish Miguel PA [address] [facility] [place] [address] Social History Tobacco Use Types [...] Visit [facility] [address] [facility] [place] [address] Stef Wright MD [address] [facility] [place] [address] documented as of this encounter Visit Diagnoses Not on filedocumented in this encounter Care Teams Studio Couch Frame Builder Relationship Specialty Start Date End Date Bettina Aguiar MD PCP - General 01/22/19 documented as of this encounter
--- OUTSIDE RECORDS SUMMARY | 2025-03-15 14:36 | XMS_ITS | Encounter Summary ---
Author Organization [facility] Address [address] [place] [address] Care Team Providers Care Automotive Parts Manager Name Role Phone Nitesh Fitzpatrick MD Primary Care Provider [phone] [phone] Encounter Details Date Type Department Care Team (Late st Contact Info) Description 01/21/2025 Results Follow-Up Adult Medicine [address] [phone] Nitesh Fitzpatrick MD [address] [place] [address] Social History Tobacco Use Types Packs/Day Years [...] AM EST Procedure visit Bariatric Surgery - [address] [address] Lachelle Dill MD [address] [place] [phone] 06/06/2025 11:30 AM EDT Office Visit Adult Medicine [facility] [address] [place], [place] [phone] Nitesh Fitzpatrick MD [address] [place], [place] 06/10/2025 1:00 PM EDT Office Visit Pulmonology - [place] [address] [facility] [address] [place] [address] Harini Bose MD [address] [place] [phone] documented as of this encounter Goals Goal [...] documented as of this encounter Care Teams Automotive Parts Manager Relationship Specialty Start Date End Date Nitesh Fitzpatrick MD [address] [place] [address] PCP - General Internal Medicine 06/29/21 documented as of this encounter
--- OUTSIDE RECORDS SUMMARY | 2025-03-15 14:36 | XMS_ITS | Encounter Summary ---
Author Organization [facility] Address [address] [place] [address] Phone Care Team Providers Care Clinical Auditor Name Role Phone Bettina Aguiar MD Primary Care Provider [phone]- [phone] Encounter Details Date Type Department Care Team (Late Contact Info) Description 05/03/2023 Documentation Only [facility] [address] [facility] [place] [address] Mariana Lomeli [address] [place] [phone] Social History Tobacco Use Types Packs/Day [...] Visit [facility] [address] [place] [address] Stef Wright MD [address] [facility] [address] [place] [address] documented as of this encounter Visit Diagnoses Not on filedocumented in this encounter Care Teams Clinical Auditor Relationship Specialty Start Date End Date Bettina Aguiar MD PCP - General 01/22/19 documented as of this encounter
--- OUTSIDE RECORDS SUMMARY | 2025-03-15 14:36 | XMS_ITS | Encounter Summary ---
Author Organization [employer] Address [address] [place] [address] Care Team Providers Care Head And Neck Surgeon Name Role Phone Nitesh Fitzpatrick MD Primary Care Provider +1- [phone] Reason for Visit * Reason Onset Date Comments Weight Check 03/10/2025 198.0 Encounter Details Date Type Department Care Team ([facility] st Contact Info) Description 03/10/2025 Telephone Bariatric Surgery - [place] [address] [facility] [address] [place] [phone] Jason Nair MD [address] [place] [phone] Social History Tobacco Use Types Packs/Day [...] PM EST documented as of this encounter Ordered Prescriptions Prescription Sig Dispense Quantity Refills Last Filled Start Date End Date tirzepatide, weight loss, (Zepbound) 7.5 mg/0.5 mL injection Inject 0.5 mL (7.5 mg total) under the skin every 7 (seven) days. 2 mL 03/12/2025 documented in this encounter Progress Notes * Liliam Mancini - 03/10/2025 10:48 AM EST Weight 198.0 Pt has hair falling out in chunks would like to lower dose of Zepbound to 7.5 mg please send script. documented in this encounter Plan of Treatment Upcoming Encounters Date Type Department Care Team (Late st Contact Info) Description 03/31/2025 10:30 AM EST Procedure visit Bariatric Surgery - [place] [address] [facility] [address] [place] [phone] Lachelle Dill MD [address] [place] [phone] 06/06/2025 11:30 AM EDT Office Visit Adult Medicine [facility] [address] [place], [place] [phone] Nitesh Fitzpatrick MD [address] [place], [place] 06/10/2025 1:00 PM EDT Office Visit Pulmonology - [place] [address] [facility] 200 [place] [phone] Harini Bose MD [address] [place] [phone] documented as of this encounter Goals Goal [...] Diagnoses Not on filedocumented in this encounter Discontinued Medications Medication Sig Discontinue Reason Start Date End Da te tirzepatide, weight loss, (Zepbound) 12.5 mg/0.5 mL injection Inject 0.5 mL (12.5 mg total) under the skin every 7 (seven) days. 02/01/2025 03/12/2025 documented as of this encounter Additional Health Concerns Assessment Noted Time PHQ-9 Depression Total Score: 0 05/25/19 25 1:49 AM EST documented as of this encounter Care Teams Head And Neck Surgeon Relationship Specialty Start Date End Date Nitesh Fitzpatrick MD [address] [place] [address] PCP - General Internal Medicine 06/29/21 documented as of this encounter
--- OUTSIDE RECORDS SUMMARY | 2025-03-15 14:36 | XMS_ITS | Clinical Summary ---
Author Organization [facility] 444 [facility] Address [address] [place] [address] Phone Care Team Providers Care Gas Appliance Adjuster Name Role Phone Nitesh Fitzpatrick MD Primary Care Provider Allergies Active Allergy Reactions Criticality Noted Date Comments Lisinopril 10/19/2015 Cough Morphine Other 07/19/2016 Gives pt a bad feeling Medications miscellaneous medical supply misc CPAP Inhale into the lungs. Life supply pressure 7 Active acetaminophen (TYLENOL) 500 mg capsule Take 1-2 Caps by mouth 3 times daily as needed (pain). 11/05/19 20 Active DULoxetine (CYMBALTA) [address] capsule Take 40 mg by mouth daily. Active etanercept (EnbreL SureClick) 50 mg/mL (1 mL) injection pen Inject 50 mg as directed every 7 days. 09/17/19 22 Active LORazepam (ATIVAN) 1 mg tablet Take 1 Tab by mouth 2 times daily as needed for Anxiety (or panic attack). 12/18/19 13 Active mirabegron (Myrbetriq) 25 mg 24 hr tablet Take 1 Tablet by mouth daily. 02/05/20 22 Active zolpidem (AMBIEN) 5 mg tablet 1 Tab at bedtime as needed. 05/25/19 14 Active Vitamin D3 25 mcg (1,000 unit) capsule TAKE 1 CAPSULE BY MOUTH TWICE DAILY NEEDED 90 capsule 3 06/15/19 25 Active benzonatate (TESSALON) 100 mg capsule Take 1 capsule (100 mg total) by mouth 3 (three) times a day if needed for cough. Do not crush or chew. 30 capsule 09/28/19 25 Active carbamide peroxide (Debrox) 6.5 % otic solution Administer 5 drops into each ear 2 (two) times a day. 15 mL 09/28/19 25 Active hydroxychloroq uine (PLAQUENIL) 200 mg tablet Take 1 tablet (200 mg total) by mouth 2 (two) times a day. 10/11/19 25 Active conjugated estrogens (Premarin) vaginal cream USE A PEA SIZED AMOUNT OF CREAM IN THE VAGINA 3 TIMES A WEEK 90 g 12/26/19 25 Active diclofenac (VOLTAREN) 1 % topical gel Apply 4 g topically 2 (two) times a day. 1 each 1 01/30/20 Active polyethylene glycol (MIRALAX) 17 gram packet Take 17 g by mouth 1 (one) time each day. 1530 g 1 01/30/20 Active meclizine (ANTIVERT) 25 mg tablet Take 1 tablet (25 mg total) by mouth 3 (three) times a day if needed for dizziness. 30 tablet 11 02/12/20 25 026 Active minoxidiL (Rogaine) 2 % external solutionIndica tions:Drug-rel ated hair loss Apply topically 2 (two) times a day. 60 mL 1 03/10/20 25 026 Active tirzepatide, weight loss, (Zepbound) 7.5 mg/0.5 mL injection Inject 0.5 mL (7.5 mg total) under the skin every 7 (seven) days. 2 mL 03/12/20 25 Active tirzepatide, weight loss, (Zepbound) 12.5 mg/0.5 mL injection Inject 0.5 mL (12.5 mg total) under the skin every 7 (seven) days. 2 mL 2 02/02/20 25 025 Discontinued Active Problems Problem Noted Date Diagnosed Date [...] 99%. For the entire study, PLMs ~37. [facility] Polysomnogram treatment study. Date 04/14/2019. [...] Team Description 03/10/2025 Telephone Bariatric Surgery - [place] [address] [facility] [address] [place] [address] Jason Nair MD 02/27/2025 10:[address] [facility] Occupational Therapy [address] [facility] [address] [place] [address] Melita Duong, OT Vertigo (Primary Dx) 02/20/2025 9:[address] [facility] Therapy [address] [phone] Melita Duong, OT Vertigo 02/11/2025 10:00 AM EST Office Visit [address] [phone] Juan Manuel Quezada NP Vertigo (Primary Dx) 02/07/2025 10:30 AM EST Consult Bariatric Surgery [address] [phone] Lachelle Dill MD Lipoma of torso (Primary Dx) 01/31/2025 Telephone Bariatric Surgery [address] [phone] Jason Nair MD 01/31/2025 Telephone Bariatric Surgery [address] [address] Jason Nair MD 01/29/2025 1:30 PM EST Office Visit [address] [phone] Nitesh Fitzpatrick MD Type 2 diabetes mellitus with diabetic microalbuminuria, without long-term current use of insulin (CMS/HCC V24, CMS/HCC V28) (Primary Dx); Obesity (BMI 35.0-39.9 without comorbidity); Constipation, unspecified constipation type; CKD (chronic kidney disease) stage 2, GFR 60-89 ml/min; Seropositive rheumatoid arthritis (CMS/HCC V24, CMS/HCC V28); Thyroid nodule; Fatty liver; ROLY on CPAP; Anxiety and depression 01/21/2025 Results Follow-Up [address] [phone] Nitesh Fitzpatrick MD 01/17/2025 2:31 PM EDT - 01/17/2025 11:59 PM EDT Hospital Encounter Radiology Department - [address] [phone] Encounter for screening mammogram for malignant neoplasm of breast Discharge Disposition: Home or Self Care 01/08/2025 Telephone Adult Medicine [address] [phone] Nitesh Fitzpatrick MD from Last 3 Months Immunizations Immunization [...] CHOLECYSTECTOMY PROCEDURE: HISTORICAL CHOLECYSTECTOMY COLONOSCOPY 12/20/2011 PROCEDURE: DC COLONOSCOPY FLX DX W/COLLJ SPEC WHEN PFRMD; COMMENT: normal SECTION x3 PROCEDURE: HISTORICAL NECK SURGERY 01/15/13 PROCEDURE: HISTORICAL NECK SURGERY; COMMENT: ACDF C5-6, C6-7 Dr. [facility] Jasso at [facility] ESOPHAGOGASTRODUODENOSCOPY 09/26/2016 PROCEDURE: DC EGD TRANSORAL BIOPSY SINGLE/MULTIPLE; COMMENT: mild gastritis, reflux esophagitis; no H. pylori or Barretts Esophagus OTHER SURGICAL HISTORY 02/05/2014 Left PROCEDURE: DC BX/EXC LYMPH NODE OPEN DEEP AXILLARY NODE; [...] care for your loved ones. For example, teacher early childhood development or elderly care for an older adult? [...] AM EST Procedure visit Bariatric Surgery - [place] [address] [facility] [address] [place] [phone] Lachelle Dill MD [address] [place] [phone] 06/06/2025 11:30 AM EDT Office Visit Adult Medicine [address] [phone] Nitesh Fitzpatrick MD [address] [place] [address] 06/10/2025 1:00 PM EDT Office Visit Pulmonology [facility] [address] [facility] [address] [place] [phone] Harini Bose MD [address] [place] [phone] Health Maintenance Due Date Last [...] microalbuminuria, without long-term current use of insulin ([facility] V24, [facility] V28) CKD (chronic kidney disease) stage 2, GFR 60-89 ml/min Seropositive rheumatoid arthritis (CMS/[facility] V24, [facility] V28) Thyroid nodule Fatty liver ROLY on CPAP Anxiety and depression Insomnia, unspecified type COMPREHENSIVE METABOLIC PANEL Routine 09/17/2024 2:17 PM EDT Type 2 diabetes mellitus with diabetic microalbuminuria, without long-term current use of insulin ([facility] V24, CMS/[facility] V28) CKD (chronic kidney disease) stage 2, GFR 60-89 ml/min Seropositive rheumatoid arthritis ([facility] V24, CMS/[facility] V28) Thyroid nodule Fatty liver ROLY on CPAP Anxiety and depression Insomnia, unspecified type HEMOGLOBIN A1C Routine 09/17/2024 2:17 PM EDT Type 2 diabetes mellitus with diabetic microalbuminuria, without long-term current use of insulin ([facility] V24, [facility] V28) CKD (chronic kidney disease) stage 2, GFR 60-89 ml/min Seropositive rheumatoid arthritis ([facility] V24, [facility] V28) Thyroid nodule Fatty liver ROLY on CPAP Anxiety and depression Insomnia, unspecified type LIPID PANEL Routine 06/12/2023 COLONOSCOPY Routine 12/15/2022 HEPATITIS C SCREENING Routine 09/11/2012 from Last 3 Months or Most Recently Relevant to Health Maintenance Results * External clinical lab (02/03/2025) Provider [facility] LAB BLOOD ORDERABLES Fin [...] is recommended in 1 year. Mammo Location: [facility], [address] [place] [address], [address], . -------- FINAL REPORT -------- Dictated By: Jcarlos Flores Dictated Date: 01/21/2025 12:05 ET Assigned Physician: Jcarlos Flores Reviewed and Electronically Signed By: Jcarlos Flores Signed Date: 01/21/2025 12:45 ET Workstation ID: [id number] Transcribed By: Self Edit Transcribed Date: 01/21/2025 [...] is recommended in 1 year. Mammo Location: [facility], [address] [place] [address], [address], . -------- FINAL REPORT -------- Dictated By: Jcarlos Flores Dictated Date: 01/21/2025 12:05 ET Assigned Physician: Jcarlos Flores Reviewed and Electronically Signed By: Jcarlos Flores Signed Date: 01/21/2025 12:45 ET Workstation ID: [id number] Transcribed By: Self Edit Transcribed Date: 01/21/2025 12:42 ET us Nitesh Fitzpatrick MD IMG BI PROCEDURES Final Res ult * BD Bone Density DXA Axial w Vertebral Fx Asmt (09/27/2024 10:05 AM EDT) Anatomical Region Laterality Modality Body Bone Densitometr y 09/30/2024 8:40 AM EDT Impressions 09/30/2024 8:42 AM EDT Normal bone mineral density by WHO criteria. [facility] Department of Internal Medicine recommends [...] alternative screening schedule based on bear Wu., [facility] April 07, 2011 for patients with osteopenia (based on hip BMD T-score) is as follows: * advanced osteopenia (T scores -2.00 to -2.49), BMD testing every year * moderate osteopenia (T scores -1.50 to -1.99), BMD testing every 5 years mild osteopenia or normal BMD (T scores -1.50 and higher), BMD testing every 15 years -------- FINAL REPORT -------- Dictated By: Calli, Cait Dictated Date: 09/30/2024 08:40 ET Assigned Physician: Cait Mccurdy Reviewed and Electronically Signed By: Cait Mccurdy Signed Date: 09/30/2024 08:42 ET Workstation ID: [id number] Transcribed By: Self Edit Transcribed Date: 09/30/2024 [...] bone mineral density by WHO criteria. [facility] Department of Internal Medicine recommendsusing [...] alternative screening schedule based on bear Wu., [place] 2011 for patients with osteopenia (based on [...] Signed Date: 09/30/2024 08:42 ET Workstation ID: [id number] Transcribed By: Self Edit Transcribed Date: 09/30/2024 08:40 ET Nitesh Fitzpatrick MD IM DXA PROCEDURES Final Re sult * Microalbumin creatinine urine ratio (09/17/2024 2:17 PM EDT) Creatinine, Urine 161.0 mg/dL LAB CHEMISTRY METHOD 09/17/2024 7:35 PM EDT [facility] Microalb, Ur 13.2 0.0 - 29.0 mg/L LAB CHEMISTRY METHOD 09/17/2024 7:35 PM EDT [facility] Microalb/Creat Ratio 8 <30 mg/g creat LAB CHEMISTRY METHOD 09/17/2024 7:35 PM T [facility] Urine Urine specimen obtained by clean catch procedure / Unknown Non-blood Collection / Unknown 09/17/2024 2:17 PM EDT 09/17/2024 2:17 PM EDT Nitesh Fitzpatrick MD LAB URINE ORDERABLES Final Result [facility] [address] [place] [address], [place] [phone] * Hemoglobin A1c (09/17/2024 2:17 PM EDT) Pathologist [facility] Hemoglobin A1C 5.2 <6.5 % LAB CHEMISTRY METHOD 09/17/2024 9:54 PM EDT [facility] Mean Bld Glu Estim. 103 mg/dL LAB CHEMISTRY METHOD 09/17/2024 9:54 PM EDT [facility] Blood Venous blood specimen / Unknown Venipuncture / Unknown 09/17/2024 2:17 PM EDT 09/17/2024 2:17 PM EDT Nitesh Fitzpatrick MD LAB BLOOD ORDERABLES Final Result Performing Organization Address City/[facility]/ZIP Co de Phone Number [facility] [address] [place] [address], [place] [phone] * Comprehensive metabolic panel (09/17/2024 2:17 PM EDT) Sodium 140 133 - 145 mmol/L LAB CHEMISTRY METHOD 09/17/2024 5:47 PM EDT [facility] Potassium 4.6 3.5 - 5.5 mmol/L LAB CHEMISTRY METHOD 09/17/2024 5:47 PM EDT [facility] Chloride 106 96 - 110 mmol/L LAB CHEMISTRY METHOD 09/17/2024 5:47 PM EDT [facility] CO2 31 21 - 32 mmol/L LAB CHEMISTRY METHOD 09/17/2024 5:47 PM EDT [facility] Anion Gap 3 3 - 11 LAB CHEMISTRY METHOD 09/17/2024 5:47 PM EDT [facility] Glucose 84 70 - 100 mg/dL LAB CHEMISTRY METHOD 09/17/2024 5:47 PM [facility] BUN 13 5 - 25 mg/dL LAB CHEMISTRY METHOD 09/17/2024 5:47 PM [facility] Creatinine 0.94 0.50 - 1.10 mg/dL LAB CHEMISTRY METHOD 09/17/2024 5:47 PM [facility] eGFR 67 >=60 mL/min/1. 73m2 LAB CHEMISTRY METHOD 09/17/2024 5:47 PM [facility] Comment:Calculation based on the Chronic Kidney Disease Epidemiology Collaboration (CKD-EPI) equation refit without adjustment for race. BUN/Creatinine Ratio 13.8 LAB CHEMISTRY METHOD 09/17/2024 5:47 PM [facility] Calcium 9.2 8.5 - 10.5 mg/dL LAB CHEMISTRY METHOD 09/17/2024 5:47 PM [facility] AST (SGOT) 32 10 - 42 unit/L LAB CHEMISTRY METHOD 09/17/2024 5:47 PM [facility] ALT (SGPT) 51 10 - 60 unit/L LAB CHEMISTRY METHOD 09/17/2024 5:47 PM [facility] Alkaline Phosphatase 97 42 - 121 unit/L LAB CHEMISTRY METHOD 09/17/2024 5:47 PM [facility] Total Protein 6.9 6.0 - 8.0 g/dL LAB CHEMISTRY METHOD 09/17/2024 5:47 PM [facility] Albumin 3.4 3.2 - 5.0 g/dL LAB CHEMISTRY METHOD 09/17/2024 5:47 PM [facility] Total Bilirubin 0.6 0.0 - 1.4 mg/dL LAB CHEMISTRY METHOD 09/17/2024 5:47 PM [facility] Blood Venous blood specimen / Unknown Venipuncture / Unknown 09/17/2024 2:17 PM EDT 09/17/2024 2:17 PM EDT Nitesh Fitzpatrick MD LAB BLOOD ORDERABLES Final Result [facility] [address] [place] [address], * (ABNORMAL) Lipid panel (06/12/2023) Pathologist [facility] LDL/HDL Ratio 3 0 - 4 Triglycerides 138 0 - 150 mg/dL Cholesterol 204(A) 0 - 200 mg/dL HDL 63 >=40 mg/dL LDL Cholesterol 114(A) 0 - 100 mg/dL Blood Venous blood specimen / Unknown Historical Provider LAB BLOOD ORDERABLES Kristel l Result * Colonoscopy (12/15/2022) Pathologist On license of [facility] Colonoscopy No Interpretation , Abstracted Anatomical Region Laterality Modality Other Historical Provider HEALTH MAINTENANCE Final Result * Hepatitis C Screening (09/11/2012) [facility] Hepatitis C Screening Abstracted Historical Provider HEALTH MAINTENANCE Final Result from Last 3 Months or Most Recently Relevant to Health Maintenance Insurance [facility] MEDICARE Member Subscriber Plan / Payer (Ef fective 2018-Present) Name:Lina Kauffman Relation to Subscriber:Self Name:Lina Kauffman Payer ID:[id number] Group ID:[id number] Type:Not on file Address: [place] [address] [address] [place] [id number] Care Teams Gas Appliance Adjuster Relationship Specialty Start Date End Date Nitesh Fitzpatrick MD [address] [place] [address] PCP - General Internal Medicine 06/29/21
--- OUTSIDE RECORDS SUMMARY | 2025-03-15 14:36 | XMS_ITS | Clinical Summary ---
Author Organization [facility], Address [address] [place] [address] [place] [address] Phone Care Team Providers Care Rug Cleaner Name Role Phone Bettina Aguiar MD Primary Care Provider +1- [phone] Allergies Active Allergy Reactions Criticality Noted Date [...] Proteinuria 03/02/2012 Overview (03/07/2019): ~ 250mg. (2011): JIAME,ANCA, PADMINI negative. On lisinopril. No hx HTN [...] 99%. For the entire study, PLMs ~37. [facility] Polysomnogram treatment study. Date 04/14/2019. [...] Visit [facility], [address] [address] Stef Wright MD [address] [place] [address] Health Maintenance [...] Hemoglobin A1C 5.3 4.8 - 5.6 % [facility] Comment: Prediabetes: 5.7 - 6.4 Diabetes: >6.4 Glycemic control for adults with diabetes: <7.0 Blood Venous blood / Unknown 12/03/2024 1:53 PM EDT 12/03/2024 us Stef Wright MD LAB BLOOD ORDERABLES Final Resul t [facility] [address] [place] [address] from Last 3 Months or Most Recently Relevant to Health Maintenance Insurance [employer] Dual SNP ([id number]) [place] [id number] Care Teams Rug Cleaner Relationship Specialty Start Date End Date Bettina Aguiar MD PCP - General 01/22/19
== END 2025-03-15 14:33 | disposition home or self-care (01) ==
LOC: HO.MRI 14:32
PROVIDERS: PCP Internal Medicine; Visit Provider Student in an Organized Health Care Education/Training Program
DX: M25.562 Pain in left knee (principal)
CPT/HCPCS: 73721

== ENCOUNTER → 2025-03-15 14:40 | Outpatient (BNV) | payer OTHER, SELFPAY | PROVIDERS: PCP Internal Medicine; Visit Provider Radiology Diagnostic Radiology | DX: M17.12 Unilateral primary osteoarthritis, left knee (principal) | CPT/HCPCS: 73721 ==